=== PATIENT | male | born 1980 | race Hispanic/Latino ===

== ENCOUNTER 2022-06-12 22:47 | Emergency (ER) | payer OTHER ==
--- OUTSIDE RECORDS SUMMARY | 2022-06-12 22:50 | XMS REPORT | Continuity of Care Document ---
:1980 Author Organization [facility] t Address [address] [place] [address] Dr. [address] [place] [address] Care Team Providers Name Role Phone PCP, PATIENT DOES NOT HAVE A Primary Care Physician UnavailEllie Drake LVN Attending Clinician YOEL CORLEY Attending Clinician Unavailable Zainab Echavarria NP Attending Clinician Yoel Corley MD Attending Clinician YOEL CORLEY Admitting Clinician Unavailable Yoel Corley MD Admitting Clinician Payers Payer Name Policy Type Policy Number Effective Date Expiration Date S ource Problems Condition Condition Condition Status Onset Resolution Last Treating Co mments Source Name Details Category Date Date Treatment Clinician Date Diverticul Diverticul Disease Active 2021-05 U nivers itis itis 0-02 ity of 00:00: [address] Obesity Obesity Disease Active 2021-05 Univers (BMI (BMI 0-02 ity of 30-39.9) 30-39.9) 00:00: [address] Allergies, Adverse Reactions, Alerts Allergy Allergy Status Severity Reaction(s) Onset Inactive Treating Comm ents Source Name Type Date Date Clinician NO KNOWN Drug Active Univers ALLERGIE Class ity of S [facility] Social History Social Habit Start Date Stop Date Quantity Comments Source History of Passive smoker University of tobacco use [facility] Exposure to 2022-01-24 2022-02-03 Not sure University SARS-CoV-2 00:00:00 00:21:00 [facility] (event) [place] Tobacco use and 2022-02-03 2022-02-03 Smokeless tobacco Un iversity of exposure 00:00:00 00:00:00 non-user [facility] Sex Assigned At [birth year] Universit y of 00:00:00 00:00:00 [facility] Smoking Status Start Date Stop Date Source Smokes tobacco daily 2022-02-03 00:00:00 Univers ity [facility] Medications Ordered Filled Start Stop Current Ordering Indication Dosage Frequency Signature Comments Components Source Medication Medication Date Date Medication? Clinician (SIG) Name Name palak 2021-05 No 3.375g 3.375 g, Univers n-tazobacta 0-05 02-08 IV ity of m (ZOSYN) 12:15: 20:14 [place], [place] 3.375 g in 00 :00 Q8H ABX, 7 Med ical NaCl 0.9% doses, Branch (NS) 50 mL First dose MINI-BAG (after last reorder) on Fri02/06/22 at 0715, Last dose on Fri02/08/22 at 0715, Administer over 4 Hours, 50 mL
Reas on for Anti-Infec tive: Empiric Therapy for Suspected Infection< br>Empiric Therapy Site: Abdominal< br>Duratio n of therapy: 72 hours acidophilus 2021-05- No [id number] 1g Take 1 Univers 100 million 0-05 11-05 tablet by it y of cell tablet 00:00: 04:59 mouth in [place] 00 :00 the Medical morning Branch and 1 tablet in the evening. Do all this for 30 days. acidophilus 2021-05- No [id number] 1g Take 1 Univers 100 million 0-05 11-05 tablet by it y of cell tablet 00:00: 04:59 mouth in [place] 00 :00 the Medical morning Branch and 1 tablet in the evening. Do all this for 30 days. acidophilus 2021-05- No [id number] 1g Take 1 Univers 100 million 0-05 11-05 tablet by it y of cell tablet 00:00: 04:59 mouth in [place] 00 :00 the Medical morning Branch and 1 tablet in the evening. Do all this for 30 days. amoxicillin 2021-05- No [id number] 1{tbl} Take 1 Univers -clavulanat 0-05 10-13 tablet by it y of e 00:00: 04:59 mouth in [place] (AUGMENTIN) 00 :00 the Medical 875-125 mg morning Branch per tablet and 1 tablet in the evening. Do all this for 7 days. amoxicillin 2021-05- No [id number] 1{tbl} Take 1 Univers -clavulanat 0-05 10-13 tablet by it y of e 00:00: 04:59 mouth in [place] (AUGMENTIN) 00 :00 the Medical 875-125 mg morning Branch per tablet and 1 tablet in the evening. Do all this for 7 days. amoxicillin 2021-05- No [id number] 1{tbl} Take 1 Univers -clavulanat 0-05 10-13 tablet by it y of e 00:00: 04:59 mouth in [place] (AUGMENTIN) 00 :00 the Medical 875-125 mg morning Branch per tablet and 1 tablet in the evening. Do all this for 7 days. iopamidol 2021-05- No [id number] 60mL 60 mL, U nivers (ISOVUE 0-04 10- Intravenou ity o f 370-500 mL) 14:20: 14:21 s, ONCE, 1 [place] injection 00 :00 dose, On Medica l 60 mL Branch 02/05/22 at 0930, Routine enoxaparin 2021-05 Yes 40mg 40 mg, Unive rs (LOVENOX) 0-02 Subcutaneo ity of injection 22:00: [place], DAILY, [place] 40 mg 00 First dose Medical on [place] Branch 02/03/22 at 1700, Until Discontinu ed, Routine piperacilli 2021-05- No 3.375g 3.375 g, Univers n-tazobacta 0-02 10-04 IV ity of m (ZOSYN) 17:00: 22:24 [place], [place] 3.375 g in 00 :00 Q8H ABX, 7 Med ical NaCl 0.9% doses, Branch (NS) 50 mL First dose MINI-BAG (after last reorder) on [place] 02/03/22 at 1200, Last dose on Fri02/05/22 at 1200, Administer over 4 Hours, 50 mL
Reas on for Anti-Infec tive: Empiric Therapy for Suspected Infection< br>Empiric Therapy Site: Abdominal< br>Duratio n of therapy: 72 hours acetaminoph 2021-05 Yes 650mg 650 mg, Un lina en 0-02 Oral, ity of (TYLENOL) 14:08: Q6HPRN, [place] tablet 650 38 Starting Medic al mg on [place] Branch 02/03/22 at 0908, Until Discontinu ed, Routine, Pain (scale 4-6) NaCl 0.9% 2021-05 Yes 1000mL at 100 Univ ers (NS) IV 0-02 mL/hr, IV ity of infusion 10:15: Infusion, [place] 1,000 mL 00 CONTINUOUS Medic al , Starting Branch on [place] 02/03/22 at 0515, Until Discontinu ed, Routine ondansetron 2021-05 Yes 4mg 4 mg, Slow Univers (ZOFRAN 0-02 IV Push, ity of (PF)) 10:13: Q6HPRN, [place] injection 4 17 Starting Medi lillie mg on [facility] 02/03/22 at 0513, Until Discontinu ed, Routine, Nausea and Vomiting (N/V) iopamidol 2021-05- No [id number] 100mL 100 mL, Univers (ISOVUE 002-03 Intravenou ity o f 370-500 mL) 08:30: 07:37 s, ONCE, 1 [place] injection 00 :00 dose, On Medica l 100 mL [facility] 02/03/22 at 0330, Routine piperacilli 2021-05- No 3.375g 3.375 g, Univers n-tazobacta 002-03 IV ity of m (ZOSYN) 08:15: 08:56 [place]back, [place] 3.375 g in 00 :00 ONCE, 1 Medica l NaCl 0.9% dose, On Branch (NS) 50 mL [place] MINI-BAG 02/03/22 at 0315, Administer over 30 Minutes, 50 mL
R abhijeet for Anti-Infec tive: Empiric Therapy for Suspected Infection< br>Empiric Therapy Site: Abdominal< br>Duratio n of therapy: 72 hours ketorolac 2021-05- No 30mg 30 mg, Unive rs (TORADOL) 0-02 02-03 Slow IV ity of injection 06:45: 06:02 Push, [place] 30 mg 00 :00 ONCE, 1 Medical dose, On Branch 02/03/22 at 0145, Routine Vital Signs Vital Name Observation Time Observation Value Comments Source Systolic blood 2022-02-06 18:27:00 141 mm[Hg] Univer sity of pressure [facility] Diastolic blood 2022-02-06 18:27:00 92 mm[Hg] Unive rsity of pressure [facility] Heart rate 2022-02-06 18:27:00 68 /min [facility] Body temperature 2022-02-06 18:27:00 36.44 Jessica [facility] rate 2022-02-06 18:27:00 16 /min [facility] Oxygen saturation in 2022-02-06 18:27:00 100 /min [facility] Arterial blood by [facility] Pulse oximetry [place] Body weight 2022-02-06 08:06:00 99.111 kg [facility] BMI 2022-02-06 08:06:00 33.22 kg/m2 [facility] Body height 2022-02-03 09:45:00 172.7 cm [facility] Procedures Procedure Date / Time Performed Performing Clinician Sour e BASIC METABOLIC PANEL 2022-02-06 09:21:00 Shellie Roldan [facility] (NA, K, CL, CO2, [facility] Branch GLUCOSE, BUN, CREATININE, CA) CBC WITH DIFF 2022-02-06 09:21:00 Shellie Roldan [facility] URINALYSIS 2022-02-05 21:57:00 Radha Clement [place] o f [facility] CT ABDOMEN PELVIS W 2022-02-05 14:25:48 Lori Bansal [facility] CONTRAST [facility] BASIC METABOLIC PANEL 2022-02-05 09:04:00 Shellie Roldan [facility] (NA, K, CL, CO2, [facility] Branch GLUCOSE, BUN, CREATININE, CA) CBC WITH DIFF 2022-02-05 09:04:00 Shellie Roldan [facility] BASIC METABOLIC PANEL 2022-02-04 07:48:00 [facility] (NA, K, CL, CO2, Medical Branch GLUCOSE, BUN, CREATININE, CA) CBC WITH DIFF 2022-02-04 07:48:00 [facility] o f [facility] CT ABDOMEN PELVIS W 2022-02-03 07:36:00 Zainab Echavarria [facility] CONTRAST [facility] LIPASE 2022-02-03 05:55:00 Zainab Echavarria [facility] COMP. METABOLIC PANEL 2022-02-03 05:55:00 Zainab Echavarria [facility] ([id number]) [facility] CBC WITH DIFF 2022-02-03 05:55:00 Zainab Echavarria [facility] URINALYSIS 2022-02-03 05:55:00 Zainab Echavarria [facility] NOTICE OF PRIVACY 2022-02-03 05:18:05 Doctor Unassigned, No [facility] PRACTICES Name [facility] Encounters Start End Encounter Admission Attending Care Care Encounter Source Date/Time Date/Time Type Type Clinicians Facility Department ID 2022-02-07 2022-02-07 Transition SOHAIL Tong [id number] Univers 00:00:00 00:00:00 of Care Ellie REYES [id number] it[id number] [facility] [id number] [facility] 403 Branch 2022-02-03 2022-02-06 Inpatient X RAULFRANTZ [facility] [id number] Univers 00:25:00 [facility]:35:00 [facility] 2022-02-03 2022-02-06 Hospital Zainab Echavarria [facility] [id number] Univers 00:25:00 16:35:00 Encounter Yoel Corley [id number] ity [id number] [id number] [facility] 081 Branch Results Test Description Test Time Test Comments Results Result Comments Source COMP. METABOLIC PANEL ([id number]) 2022-02-03 06:27:45 Test Item Value Reference Range Interpretation Comme nts NA (test code = 2448143744) 142 mmol/L 135-145 K (test code = 1489697285) 4.2 mmol/L 3.5-5 CL (test code = 2143460568) 105 mmol/L 98-108 CO2 TOTAL (test code = 4048468625) 26 mmol/L 23-31 AGAP (test code = 8479261699) 2-16 BUN (test code = 4408146685) 16 mg/dL 7-23 GLUCOSE (test code = 3458760891) 97 mg/dL 70-110 CREATININE (test code = 0.94 mg/dL 0.6-1.25 4475747401) TOTAL BILI (test code = 0.8 mg/dL 0.1-1.6 6946710772) CALCIUM (test code = 8769150769) 10.0 mg/dL 8.6-10.6 T PROTEIN (test code = 7182548682) 8.0 g/dL 6.3-8.2 ALBUMIN (test code = 6556516297) 4.9 g/dL 3.5-5 ALK PHOS (test code = 4861965861) 151 U/L 34-122 H ALTv (test code = 1742-6) 84 U/L 5-50 H AST(SGOT) (test code = 1175664248) 42 U/L 13-40 H eGFR (test code = 6209847936) mL/min/1.73m2 TOM (test code = TOM) Association of Glomerular Filtration Rate (GFR) and Staging of Kidney Disease* + +-------- + ------+| GFR (mL/min/1.73 m2) ?| With Kidney Damage ?| ?Without Kidney Damage+ +-- + +| ?>90 ?| ?Stage one ?| ? Normal ?+ +------- + -------+| ?60-89 ?| ?Stage two ?| ? Decreased GFR ? + +-------- + ------+| ?30-59 ?| ?Stage three ?| ? Stage three ? + +-------- + ------+| ?15-29 ?| ?Stage four ? | ? Stage four ?+ +------- + -------+| ?<15 (or dialysis) ? ?| ?Stage five ? | ? Stage five ?+ +------- + -------+ *Each stage assumes the associated GFR level has been in effect for at least three months. ?Stages 1 to 5, with or without kidney disease, indicate chronic kidney disease. Notes: Determination of stages one and two (with eGFR >59mL/min/1.73 m2) requires estimation of kidney damage for at least three months as defined by structural or functional abnormalities of the kidney, manifested by either:Pathological abnormalities or Markers of kidney damage (including abnormalities in the composition of the blood or urine or abnormalities in imaging tests). Lab Interpretation (test code = Abnormal 35064-8) [facility] Test Item Value Reference Range Interpretation Comments LIPASE (test code = 6172438190) 84 U/L 0-220 Lab Interpretation (test code = Normal 25575-9) [facility] WITH [id number] 06:04:42 Test Item Value Reference Range Interpretation Comments WBC (test code = See_Comment [Automated 2990-2) message] The sy stem which generated this result transmitted reference range : 4.20 - 10.70 10*3/?L. The reference range was not used to interpret this result as normal/abnormal . RBC (test code = See_Comment [Automated 599-8) message] The sy stem which generated this result transmitted reference range : 4.26 - 5.52 10*6/?L. The reference range was not used to interpret this result as normal/abnormal . HGB (test code = 15.8 g/dL 12.2-16.4 718-7) HCT (test code = 45.4 % 38.4-49.3 4544-3) MCV (test code = 90.8 fL 81.7-95.6 787-2) MCH (test code = 31.6 pg 26.1-32.7 785-6) MCHC (test code = 34.8 g/dL 31.2-35 786-4) RDW-SD (test code = 38.8 fL 38.5-51.6 36324-9) RDW-CV (test code = 11.7 % 12.1-15.4 L 788-0) PLT (test code = See_Comment [Automated 777-3) message] The sy stem which generated this result transmitted reference range : 150 - 328 10*3/ ?L. The reference r dariana was not used to interpret this result as normal/abnormal . MPV (test code = 11.8 fL 9.8-13 41297-0) NRBC/100 WBC (test See_Comment [Automat ed code = 2844101131) message] The system which generated this result transmitted reference range : 0.0 - 10.0 /100 WBCs. The refer ence range was not u sed to interpret th is result as normal/abnormal . NRBC x10^3 (test code See_Comment [Auto mated = 5322572979) message] The s ystem which generated this result transmitted reference range : 10*3/?L. The reference range was not used to interpret this result as normal/abnormal . GRAN MAT (NEUT) % 69.7 % (test code = 770-8) IMM GRAN % (test code 0.40 % = 7880457215) LYMPH % (test code = 20.9 % 736-9) MONO % (test code = 7.8 % 5905-5) EOS % (test code = 0.7 % 713-8) BASO % (test code = 0.5 % 706-2) GRAN MAT x10^3(ANC) 6.91 10*3/uL 1.99-6.95 (test code = 2511446277) IMM GRAN x10^3 (test 0.04 10*3/uL 0-0.06 code = 7047964589) LYMPH x10^3 (test code 2.07 10*3/uL 1.09-3.23 = 731-0) MONO x10^3 (test code 0.77 10*3/uL 0.36-1.02 = 742-7) EOS x10^3 (test code = 0.07 10*3/uL 0.06-0.53 711-2) BASO x10^3 (test code 0.05 10*3/uL 0.01-0.09 = 704-7) Lab Interpretation Abnormal (test code = 06647-0) [facility] [id number] 06:41:19 Test Item Value Reference Range Interpretation Comments VITAMIN D, 25 OH 15 NG/ML SEE BELOW L NOTE: 25-H YDROXYVITAMIN D (test code = 4958) ASSAY INC LUDES 25-HYDROXYVITAM IN D2 AND D3. METHODOLOGY IS CHEMILUMINESCEN T IMMUNOASSAY. INTERPRETIVE RA NGES PEDIATRIC (<17 YEARS) . . . . . . . . . . . NG/ML 20-100ADULT: IN SUFFICIENT . . . . . . . . . . . . . . NG/ML <20 SUBOP TIMAL . . . . . . . . . . . . . . . NG/ML 20-29 OPT IMAL . . . . . . . . . . . . . . . . . NG/ML 30-100 HEMOGLOBIN [id number] 06:13:33 Test Item Value Reference Range Interpretation Comments HEMOGLOBIN A1c (test code = 36209) 5.7 % 4.2-5.6 H TSH, THIRD [id number] 06:00:05 Test Item Value Reference Range Interpretation Comments TSH, THIRD GENERATION (test code 1.470 UIU/ML 0.400-4.100 = 2821) [id number] 05:59:24 Test Item Value Reference Range Interpretation Comments TESTOSTERONE (test 536 NG/DL 300-1080 UNLESS O THERWISE code = 2830) INDICATED, ALL TESTING PERFORMED [facility], [address] [place] [address] DIRECTOR: ONIEL WOODSON M.D. CLIA NUMBER [id number] CAP ACCREDITATION N O. [id number] CBC W/AUTO DIFF WITH [id number] 05:32:39 Test Item Value Reference Range Interpretation Comments WBC (test code = 6.6 K/UL 3.5-11.0 1001) RBC (test code = 5.23 M/UL 4.50-6.10 1002) HEMOGLOBIN (test code 16.2 G/DL 13.5-17.0 = 1003) HEMATOCRIT (test code 46.8 % 40.0-51.0 = 1004) MCV (test code = 89.5 fL 80.0-99.0 1005) MCH (test code = 31.0 PG 25.0-33.0 1006) MCHC (test code = 34.6 G/DL 31.0-36.0 1007) RDW (test code = 12.4 % 11.5-15.0 1038) NEUTROPHILS (test 59.2 % code = 1008) LYMPHOCYTES (test 27.8 % code = 1010) MONOCYTES (test code 10.1 % = 1011) EOSINOPHILS (test 2.0 % code = 1012) BASOPHILS (test code 0.6 % = 1013) IMMATURE GRANULOCYTES 0.3 % (test code = 1036) NUCLEATED RBCS (test 0.0 /100 WBC'S See_Comment [Aut omated code = 1065) message] The sy stem which generated this result transmitted reference range : 0.0. The refere nce range was not u sed to interpret th is result as normal/abnormal . PLATELET COUNT (test 241 K/UL 130-400 code = 1015) ABSOLUTE NEUTROPHILS 3.91 K/UL 1.50-7.50 (test code = 1066) ABSOLUTE LYMPHOCYTES 1.84 K/UL 1.00-4.00 (test code = 1067) ABSOLUTE MONOCYTES 0.67 K/UL 0.20-1.00 (test code = 1068) ABSOLUTE EOSINOPHILS 0.13 K/UL 0.00-0.50 (test code = 1040) ABSOLUTE BASOPHILS 0.04 K/UL 0.00-0.20 (test code = 1069) ABS IMMATURE 0.02 K/UL 0.00-0.10 GRANULOCYTES (test code = 1020) ABS NUCLEATED RBCS 0.00 K/UL 0.00-0.11 (test code = 58185) COMPREHENSIVE METABOLIC [id number] 03:36:54 Test Item Value Reference Range Interpretation Comments GLUCOSE (test code = 88 MG/DL 70-99 2216) BUN (test code = 10 MG/DL 6-20 2207) CREATININE (test 0.88 MG/DL 0.80-1.40 code = 2214) eGFR (2020 CKD-EPI) 112 >60 (test code = 15803) ML/MIN/1.73 CALC BUN/CREAT (test 11 RATIO 6-28 code = 2235) SODIUM (test code = 141 MEQ/L 366-675 0368) POTASSIUM (test code 4.3 MEQ/L 3.5-5.4 = 2227) CHLORIDE (test code 103 MEQ/L 95-107 = 2215) CARBON DIOXIDE (test 25 MEQ/L 19-31 code = 220) CALCIUM (test code = 9.8 MG/DL 8.5-10.5 2208) PROTEIN, TOTAL (test 7.3 G/DL 6.1-8.3 code = 222) ALBUMIN (test code = 4.3 G/DL 3.5-5.2 2200) CALC GLOBULIN (test 3.0 G/DL 1.9-3.7 code = 2240) CALC A/G RATIO (test 1.4 RATIO 1.0-2.6 code = 2234) BILIRUBIN, TOTAL 0.6 MG/DL See_Comment [Automated message] (test code = 2206) The syste [employer] which generated this result transmit boni reference range : <=1.2. The refe rence range was not u sed to interpret th is result as normal/abnormal . ALKALINE PHOSPHATASE 125 U/L 40-117 H (test code = 2203) AST (test code = 26 U/L 9-50 2217) ALT (test code = 44 U/L 5-50 2218) LIPID [id number] 03:36:54 Test Item Value Reference Range Interpretation Comments CHOLESTEROL (test 226 MG/DL <200 H code = 2210) TRIGLYCERIDES (test 105 MG/DL <150 code = 2232) HDL CHOLESTEROL (test 60 MG/DL >39 code = 2220) CALC LDL CHOL (test 144 MG/DL <100 H NOTE: C ALCULATED LDL code = 2237) IS BASED ON MEHDI-ALLEN METHOD WHICHINCLUDES ADJUSTABLE TRIGLYCERIDE:VL DL CHOLESTEROL RAT IO.THIS FACTOR VARIES B Y MEASURED TRIGLY CERIDE AND NON-HDLCHOL ESTEROL CONCENTRATIONS WITH INCREASED CALCU LATED LDL SEENIN HIGH ER TRIGLYCERIDE OR LOWER NON-HDL SPECIME NS. FOR MOREINFORMATION , SEE CLIENT ANNOUNCE MENT AT [email or web address] RATIO LDL/HDL 2.40 RATIO <3.55 (test code = 223)"
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
[2022-06-13] MEDS ORDERED: HYDROCODONE/APAP 10/325 TAB ONE (00:42)
[2022-06-13 01:10] VITALS: BP 145/110; TEMP 98.8; O2SAT 98
--- NOTE | 2022-06-13 20:39 | RAD REPORT ---
EXAM DESCRIPTION: RAD - C Spine Ap/Lat - 06/12/2022 11:34 pm CLINICAL HISTORY: Pain COMPARISON: None TECHNIQUE: Cervical Spine 3 Views FINDINGS: Cervical vertebral bodies show normal height and alignment. No fracture or subluxation. Small anterior endplate osteophytes at C4/C5. No significant cervical disc height loss. No significant sclerotic/lytic bone lesion. Prevertebral space unremarkable. IMPRESSION: Unremarkable cervical spine radiographs for patient's age. Electronically signed by: Jose Ferreira MD 06/12/2022 11:51 PM [employer]CH[employer]IC Due to temporary technical issues with the PACS/Fluency reporting system, reports are being signed by the in house radiologists without review as a courtesy to insure prompt reporting. The interpreting radiologist is fully responsible for the content of the report.
--- NOTE | 2022-06-13 20:40 | RAD REPORT ---
EXAM DESCRIPTION: RAD - Lumbar Spine 3 Views - 06/12/2022 11:34 pm CLINICAL HISTORY: Pain COMPARISON: None TECHNIQUE: Lumbar Spine 3 Views FINDINGS: Lumbar vertebral bodies show normal height and alignment. No fracture or subluxation. Lumbar disc spaces show no significant height loss. Small anterior endplate osteophytes throughout lumbar spine. No significant sclerotic/lytic bone lesion. No significant hip joint space narrowing. Sacroiliac joints appear unremarkable. Small ovoid inferior right pelvic calcification likely represents phlebolith. IMPRESSION: Unremarkable lumbar spine radiographs for patient's age. Electronically signed by: Jose Ferreira MD 06/12/2022 11:49 PM RESPITE PROVIDER Due to temporary technical issues with the PACS/Fluency reporting system, reports are being signed by the in house radiologists without review as a courtesy to insure prompt reporting. The interpreting radiologist is fully responsible for the content of the report.
== END 2022-06-13 00:43 | disposition home or self-care (01) ==
LOC: ER 22:47
DX: M54.2 Cervicalgia (principal); M54.50 Low back pain, unspecified; E11.9 Type 2 diabetes mellitus without complications
CPT/HCPCS: 72040; 72100; 99283

== ENCOUNTER 2024-06-09 23:14 | Inpatient (IN) | payer SELFPAY ==
--- OUTSIDE RECORDS SUMMARY | 2024-06-09 23:18 | XMS REPORT | Continuity of Care Document ---
Author Name Unknown Address [address] [facility] [address] [place] [address] [facility] thconnect Address [address] [facility] 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 Role Phone Lynn Rodriguez Primary Care Physician Ellie Tong LVN Attending Clinician [phone] YOEL CORLEY Attending Clinician Unavailable Zainab Echavarria NP Attending Clinician Yoel Corley MD Attending Clinician [phone] Doctor Unassigned, [place] Attending Clinician U YOEL Swenson Admitting Clinician Unavailable Yoel Corley MD Admitting Clinician [phone] Payers Payer Name Policy Type Policy Number Effective Date Expirati on Date Source Problems Condition Name Condition Details Condition Category Status Onset Date Resolution Date Last Treatment Date Treating Clinician Comments Source Diverticul itis Diverticul itis Disease Active 2021-05 00:00: 00 [facility] Obesity (BMI 30-39.9) Obesity (BMI 30-39.9) Disease Active 2021-05 00:00: 00 [facility] Allergies, Adverse Reactions, Alerts Allergy Name Allergy Type Status Severity Reaction(s) Onset Date Inactive Date Treating Clinician Comments Source [place] - Intraven ous Propensi ty to adverse reaction to drug Active 11-07 00:00: 00 Castillo Saleem NO KNOWN ALLERGIE S Drug Class Active [facility] Social History Social Habit Start Date Stop Date Quantity Comments Source History of tobacco use Passive smoker [facility] to SARS-CoV-2 (event) 2022-01-24 00:00:00 2022-02-03 00:21:00 Not sure [facility] Tobacco use and exposure 2022-02-03 00:00:00 2022-02-03 00:00:00 Smokeless tobacco non-user [facility] History of Social function 2022-02-03 00:00:00 2022-02-03 00:00:00 [facility] Sex Assigned At 1980 00:00:00 1980 00:00:00 [facility] Smoking Status Start Date Stop Date Source Tobacco smoking consumption unknown [facility] Smokes tobacco daily 2022-02-03 00:00:00 [facility] Medications Ordered Medication Name Filled Medication Name Start Date Stop Date Current Medication? Ordering Clinician Indication Dosage Frequency Signature (SIG) Comments Components Source Cipro 500 mg tablet 2023-05 00:00: 00 Yes 1mg Castilloxin Saleem metronidazo le 500 mg tablet 2023-05 00:00: 00 Yes 1mg Castillo Alaian Saleem Tylenol Extra Strength 500 mg tablet 2023-05 00:00: 00 Yes 12mg Castillo Saleem TAKE 1 TABLET AT BEDTIME NEEDED. 05-12 00:00: 00 08-17 00:00 :00 No 50 Castillo Alania Saleem TAKE 1 TABLET DAILY. 05-12 00:00: 00 08-17 00:00 :00 No 50 Castillo Alaina Saleem TAKE 1/2 TABLET AT BEDTIME. 2022-05 00:00: 00 08-17 00:00 :00 No 50 Castillo Alaina Saleem TAKE 1 TABLET DAILY. 2022-05 00:00: 00 08-17 00:00 :00 No 50 Castillo F Stiven TAKE 1 TO 2 TABLETS AT BEDTIME 2022-05 00:00: 00 08-17 00:00 :00 No 25 Castillo Alaina Saleem TAKE 1 TABLET DAILY. 2022-05 00:00: 00 08-17 00:00 :00 No 25 Castillo Saleem APPLY SPARINGLY TO AFFECTED AREA(S) TWICE DAILY -24 00:00: 08-17 00:00 :00 No 2 Castillo Saleem TAKE 1 TABLET TWICE DAILY WITH FOOD. -24 00:00: 00 08-17 00:00 :00 No [id number] Castillo Saleem TAKE 1 TABLET DAILY DIRECTED. -17 00:00: 00 08-17 00:00 :00 No 500 Castillo Saleem piperacilli n-tazobacta m (ZOSYN) 3.375 g in NaCl 0.9% (NS) 50 mL MINI-BAG 2021-05 12:15: 00 02-08 20:14 :00 No 3.375g 3.375 g, IV Piggyback, Q8H ABX, 7 doses, First dose (after last reorder) on Fri02/06/22 at 0715, Last dose on Fri02/08/22 at 0715, Administer over 4 Hours, 50 mL
Reas on for Anti-Infec tive: Empiric Therapy for Suspected Infection< br>Empiric Therapy Site: Abdominal< br>Duratio n of therapy: 72 hours [facility] TAKE ONE (1) TABLET(S) BY MOUTH EVERY MORNING AND EVENING FOR 7 DAYS. 2021-05 0 00:00: 08-17 00:00 :00 No Castillo Saleem acidophilus 100 million cell tablet 2021-05 0-05 00:00: 00 03-09 04:59 :00 No [id number] 1g Take 1 tablet by mouth in the morning and 1 tablet in the evening. Do all this for 30 days. [facility] amoxicillin -clavulanat e (AUGMENTIN) 875-125 mg per tablet 2021-05 0-05 00:00: 00 02-14 04:59 :00 No [id number] 1{tbl} Take 1 tablet by mouth in the morning and 1 tablet in the evening. Do all this for 7 days. [facility] iopamidol (ISOVUE 370-500 mL) injection 60 mL 2021-05 14:20: 00 02-05 14:21 :00 No [id number] 60mL 60 mL, Intravenou s, ONCE, 1 dose, On Fri02/05/22 at 0930, Routine [facility] enoxaparin (LOVENOX) injection 40 mg 2021-05 22:00: 00 Yes 40mg 40 mg, Subcutaneo us, DAILY, First dose on Fri02/03/22 at 1700, Until Discontinu ed, Routine [facility] piperacilli n-tazobacta m (ZOSYN) 3.375 g in NaCl 0.9% (NS) 50 mL MINI-BAG 2021-05 17:00: 00 02-05 22:24 :00 No 3.375g 3.375 g, IV Piggyback, Q8H ABX, 7 doses, First dose (after last reorder) on Fri02/03/22 at 1200, Last dose on Fri02/05/22 at 1200, Administer over 4 Hours, 50 mL
Reas on for Anti-Infec tive: Empiric Therapy for Suspected Infection< br>Empiric Therapy Site: Abdominal< br>Duratio n of therapy: 72 hours [facility] acetaminoph en (TYLENOL) tablet 650 mg 2021-05 14:08: 38 Yes 650mg 650 mg, Oral, Q6HPRN, Starting on Fri02/03/22 at 0908, Until Discontinu ed, Routine, Pain (scale 4-6) [facility] NaCl 0.9% (NS) IV infusion 1,000 mL 2021-05 10:15: 00 Yes 1000mL at 100 mL/hr, IV Infusion, CONTINUOUS , Starting on Fri02/03/22 at 0515, Until Discontinu ed, Routine [facility] ondansetron (ZOFRAN (PF)) injection 4 mg 2021-05 10:13: 17 Yes 4mg 4 mg, Slow IV Push, Q6HPRN, Starting on Fri02/03/22 at 0513, Until Discontinu ed, Routine, Nausea and Vomiting (N/V) [facility] iopamidol (ISOVUE 370-500 mL) injection 100 mL 2021-05 08:30: 00 02-03 07:37 :00 No [id number] 100mL 100 mL, Intravenou s, ONCE, 1 dose, On 02/03/22 at 0330, Routine [facility] piperacilli n-tazobacta m (ZOSYN) 3.375 g in NaCl 0.9% (NS) 50 mL MINI-BAG 2021-05 08:15: 00 02-03 08:56 :00 No 3.375g 3.375 g, IV Piggyback, ONCE, 1 dose, On 02/03/22 at 0315, Administer over 30 Minutes, 50 mL
Reas on for Anti-Infec tive: Empiric Therapy for Suspected Infection< br>Empiric Therapy Site: Abdominal< br>Duratio n of therapy: 72 hours [facility] ketorolac (TORADOL) injection 30 mg 2021-05 06:45: 00 02-03 06:02 :00 No 30mg 30 mg, Slow IV Push, ONCE, 1 dose, On 02/03/22 at 0145, Routine [facility] Vitamin D2 1,250 mcg (50,000 unit) capsule 11-12 00:00: 00 Yes 1(50,00 0 unit) Castillo Saleem Vitamin D2 1,250 mcg (50,000 unit) capsule 11-11 00:00: 00 Yes 1(50,00 0 unit) Castillo Saleem Vital Signs Vital Name Observation Time Observation Value Comments S ource Systolic blood pressure 2022-02-06 18:27:00 141 mm[Hg] [place] [facility] Diastolic blood pressure 2022-02-06 18:27:00 92 mm[Hg] [place] [facility] Heart rate 2022-02-06 18:27:00 68 /min [facility] Body temperature 2022-02-06 18:27:00 36.44 Jessica [facility] Respiratory rate 2022-02-06 18:27:00 16 /min [facility] Oxygen saturation in Arterial blood by Pulse oximetry 2022-02-06 18:27:00 100 /min [facility] Body weight 2022-02-06 08:06:00 99.111 kg [facility] BMI 2022-02-06 08:06:00 33.22 kg/m2 [facility] Body height 2022-02-03 09:45:00 172.7 cm [facility] BP Systolic 2024-02-09 10:19:00 146 mm[Hg] Step hen F Stiven BP Diastolic 2024-02-09 10:19:00 92 mm[Hg] Dereje phen F Stiven Weight Measured 2024-02-09 10:19:00 234.80 pounds Castillo F Stiven Height Measured 2024-02-09 10:19:00 68.00 inches Castillo F Stiven Body Temperature 2024-02-09 10:19:00 98.20 degrees Castillo F Stiven Heart Rate 2024-02-09 10:19:00 82.00 /min Mirta en F Stiven Respiratory Rate 2024-02-09 10:19:00 16.00 /min Castillo F Stiven BP Systolic 2023-05-12 16:03:00 153 mm[Hg] Step hen F Stiven BP Diastolic 2023-05-12 16:03:00 95 mm[Hg] Dereje phen F Stiven Weight Measured 2023-05-12 16:03:00 243.00 pounds Castilloxin Saleem Height Measured 2023-05-12 16:03:00 68.00 inches Castillo Alaina Saleem Body Temperature 2023-05-12 16:03:00 97.70 degrees Castillo F Stiven Heart Rate 2023-05-12 16:03:00 90.00 /min Mirta en F Stiven Respiratory Rate 2023-05-12 16:03:00 18.00 /min Castillo F Stiven Heart Rate 2022-09-09 08:26:00 78.00 /min Mirta en F Stiven Respiratory Rate 2022-09-09 08:26:00 19.00 /min Castillo F Stiven BP Systolic 2022-09-09 08:26:00 143 mm[Hg] Step hen F Stiven BP Diastolic 2022-09-09 08:26:00 88 mm[Hg] Dereje phen F Stiven Weight Measured 2022-09-09 08:26:00 229.40 pounds Castillo F Stiven Height Measured 2022-09-09 08:26:00 68.00 inches Castillo F Stiven Body Temperature 2022-09-09 08:26:00 98.20 degrees Castillo F Stiven BP Systolic 2022-08-26 13:41:00 134 mm[Hg] Step hen F Stiven BP Diastolic 2022-08-26 13:41:00 88 mm[Hg] Dereje phen F Stiven Weight Measured 2022-08-26 13:41:00 230.20 pounds Castillo F Stiven Height Measured 2022-08-26 13:41:00 68.00 inches Castillo F Stiven Body Temperature 2022-08-26 13:41:00 98.10 degrees Castillo F Stiven Heart Rate 2022-08-26 13:41:00 83.00 /min Mirta en F Stiven Respiratory Rate 2022-08-26 13:41:00 19.00 /min Castillo F Stiven BP Systolic 2022-08-19 09:46:00 133 mm[Hg] Step hen F Stiven BP Diastolic 2022-08-19 09:46:00 88 mm[Hg] Dereje phen F Stiven Weight Measured 2022-08-19 09:46:00 232.80 pounds Castillo F Stiven Height Measured 2022-08-19 09:46:00 68.00 inches Castillo F Stiven Body Temperature 2022-08-19 09:46:00 98.30 degrees Castillo F Stiven Heart Rate 2022-08-19 09:46:00 78.00 /min Mirta en F Stiven Respiratory Rate 2022-08-19 09:46:00 18.00 /min Castillo F Stiven BP Systolic 2022-08-12 08:58:00 160 mm[Hg] Step hen F Stiven BP Diastolic 2022-08-12 08:58:00 91 mm[Hg] Dereje phen F Stiven Weight Measured 2022-08-12 08:58:00 232.20 pounds Castillo F Stiven Height Measured 2022-08-12 08:58:00 68.00 inches Castillo F Stiven Body Temperature 2022-08-12 08:58:00 98.70 degrees Castillo F Stiven Heart Rate 2022-08-12 08:58:00 86.00 /min Mirta en F Stiven Respiratory Rate 2022-08-12 08:58:00 18.00 /min Castillo Saleem BP Systolic 2021-11-07 11:28:00 132 mm[Hg] Dom Slaeem BP Diastolic 2021-11-07 11:28:00 73 mm[Hg] Dereje Saleem Weight Measured 2021-11-07 11:28:00 228.20 pounds Castillo Saleem Height Measured 2021-11-07 11:28:00 68.00 inches Castillo Saleem Body Temperature 2021-11-07 11:28:00 98.00 degrees Castillo Saleem Heart Rate 2021-11-07 11:28:00 97.00 /min Mirta Saleem Respiratory Rate 2021-11-07 11:28:00 17.00 /min Castillo Saleem Procedures Procedure Date / Time Performed Performing Clinicia n Source BASIC METABOLIC PANEL (NA, K, CL, CO2, GLUCOSE, BUN, CREATININE, CA) 2022-02-06 09:21:00 Shellie Roldan [facility] CBC WITH DIFF 2022-02-06 09:21:00 Jamar Shellie [facility] URINALYSIS 2022-02-05 21:57:00 Radha Clement [facility] CT ABDOMEN PELVIS W CONTRAST 2022-02-05 14:25:48 Lori Bansal [facility] BASIC METABOLIC PANEL (NA, K, CL, CO2, GLUCOSE, BUN, CREATININE, CA) 2022-02-05 09:04[facility] 2022-02-05 09:04:00 Jamar Shellie [facility] BASIC METABOLIC PANEL (NA, K, CL, CO2, GLUCOSE, BUN, CREATININE, CA) 2022-02-04 07:48:00 Yoel Corley [facility] CBC WITH DIFF 2022-02-04 07:48:00 Lin [facility] CT ABDOMEN PELVIS W CONTRAST 2022-02-03 07:36:00 Zainab Echavarria [facility] LIPASE 2022-02-03 05:55:00 Zainab Echavarria [facility] COMP. METABOLIC PANEL (34109) 2022-02-03 05:55:00 Zainab cEhavarria [facility] CBC WITH DIFF 2022-02-03 05:55:00 Zainab Echavarria [facility] URINALYSIS 2022-02-03 05:55:00 Zainab Echavarria [facility] NOTICE OF PRIVACY PRACTICES 2022-02-03 05:18:05 Doctor Unassigned, [place] [facility] Encounters Start Date/Time End Date/Time Encounter Type Admission Type Attending [facility] Care Department Encounter ID Source 2024-02-19 10:09:08 2024-02-19 10:09:08 Outpatient SFA SFA [id number] Castillo Saleem 2024-02-09 10:13:25 2024-02-09 10:13:25 Outpatient SFA SFA [id number] Castillo Saleem 2024-02-09 00:00:00 2024-02-09 00:00:00 Outpatient Visit SFA [id number] Castillo Saleem 2024-02-06 16:43:26 2024-02-06 16:43:26 Outpatient SFA SFA [id number] Castillo Saleem 2023-05-27 11:11:01 2023-05-27 11:11:01 Outpatient SFA SFA [id number] Castillo Saleem 2023-04-16 09:59:08 2023-04-16 09:59:08 Outpatient SFA SFA [id number] Castillo Saleem 2023-03-25 16:22:46 2023-03-25 16:22:46 Outpatient SFA SFA [id number] Castillo Saleem 2022-09-18 09:13:49 2022-09-18 09:13:49 Outpatient SFA SFA [id number] Castillo Saleem 2022-09-09 08:13:12 2022-09-09 08:13:12 Outpatient SFA SFA [id number] Castillo Saleem 2022-08-19 09:34:13 2022-08-19 09:34:13 Outpatient [facility] [id number] Castillo Saleem 2022-08-12 08:47:37 2022-08-12 08:47:37 Outpatient [facility] [id number] Castillo Saleem 2022-02-07 00:00:00 2022-02-07 00:00:00 Transition of Care Ellie Tong [id number] [facility] 2022-02-03 00:25:00 2022-02-06 16:35:00 Inpatient X LIN [facility] YANG [id number] [facility] 2022-02-03 00:25:00 2022-02-06 16:35:00 [facility] [id number] [facility] 2019-12-22 00:00:00 2019-12-22 00:00:00 Patient Secure Msg Doctor Unassigned, [place] [facility] [id number] [facility] Results Test Description Test Time Test Comments Results Result Co mments Source COMPREHENSIVE METABOLIC [id number] 06:54:38* Test Item Value Reference Range Interpretation Comme nts GLUCOSE (test code = 2217) 92 MG/DL 70-99 BUN (test code = 2208) 18 MG/DL 6-20 CREATININE (test code = 2214) 0.93 MG/DL 0.80-1.40 eGFR (2020 CKD-EPI) (test code = 90449) 105 ML/MIN/1.73 >60 CALC BUN/CREAT (test code = 2235) 19 RATIO 6-28 SODIUM (test code = 223) 142 MEQ/L 133-146 POTASSIUM (test code = 2228) 4.5 MEQ/L 3.5-5.4 CHLORIDE (test code = 2215) 104 MEQ/L 95-107 CARBON DIOXIDE (test code = 2206) 23 MEQ/L 19-31 CALCIUM (test code = 2209) 9.7 MG/DL 8.5-10.5 PROTEIN, TOTAL (test code = 2229) 7.8 G/DL 6.1-8.3 ALBUMIN (test code = 2201) 4.8 G/DL 3.5-5.2 CALC GLOBULIN (test code = 2240) 3.0 G/DL 1.9-3.7 CALC A/G RATIO (test code = 2234) 1.6 RATIO 1.0-2.6 BILIRUBIN, TOTAL (test code = 2207) 0.6 MG/DL <=1.2 ALKALINE PHOSPHATASE (test code = 2203) 150 U/L 40-119 H AST (test code = 2218) 31 U/L 9-50 ALT (test code = 221) 61 U/L 5-50 H UNLESS OTHERWISE INDICATED, ALL TESTING PERFORMED AT [facility] [address] [place] [address] DIVISION ORDER ANALYST: JEANNIE HAYDEN M.D. CLIA NUMBER [id number] [place]. [id number] CULTURE, [id number] 10:26:47SPECIMEN NUMBER: [id number] CULTURE, URINE SPECIMEN NUMBER: [id number] SPECIMEN COMMENT: URINE SOURCE: URINE REPORT STATUS: FINAL FINAL REPORT: 09/11/2022 NO GROWTH AFTER 36 HOURS INCUBATIONCULTURE, URINE 2022-09-11 00:00:00* Test Item Value Reference Range Interpretation Comme nts CULTURE, URINE (test code = 30194) SPECIMEN NUMBER: [id number] Castillo Foley AustinCT/NG, NAAT, [id number] 16:05:23* Test Item Value Reference Range Interpretation Comme nts CHLAMYDIA, NAAT, URINE (test code = 85837) NEGATIVE NEGATIVE Assay methodolog y is nucleic acid amplification by transcriptionmediated amplification (TMA) utilizing the Aptima Combo 2 Assay. A negative result does not exclude low level infection, specimensampling error, or collection error. GONORRHEA, NAAT, URINE (test code = 05255) NEGATIVE NEGATIVE Assay methodolog y is nucleic acid amplification by transcriptionmediated amplification (TMA) utilizing the Aptima Combo 2 Assay. A negative result does not exclude low level infection, specimensampling error, or collection error. UNLESS OTHERWISE INDICATED, ALL TESTING PERFORMED AT [facility] [address] [place] [address] DIVISION ORDER ANALYST: JEANNIE HAYDEN M.D. CLIA NUMBER [id number] [facility] [place]. [id number] HIV 1/2 4TH GEN, RFLX [id number] 04:08:09* Test Item Value Reference Range Interpretation Comme nts HIV 1/2 4TH GEN, RFLX CONF ( test code = 3514) NON-REACTIVE NON-REACTIVE PSA, [id number] 04:07:46* Test Item Value Reference Range Interpretation Comme nts PSA, TOTAL (test code = 2606) 1.17 NG/ML See_Comment NOTE: Methodolog y is Nataly Pina Electrochemiluminescence Immunoassay traceable to WHO reference standard 96/760. [Automated message] The system which generated this result transmitted reference range: <=4.00. The reference range was not used to interpret this result as normal/abnormal. HIV 1/2 4TH GEN, RFLX [id number] 00:00:00* Test Item Value Reference Range Interpretation Comme nts HIV 1/2 4TH GEN, RFLX CONF ( test code = 3514) NON-REACTIVE Castillo SaleemPSA, [id number] 00:00:00* Test Item Value Reference Range Interpretation Comme nts PSA, TOTAL (test code = 2606) 1.17 NG/ML Castillo SaleemCT/NG, TMA, [id number] 00:00:00* Test Item Value Reference Range Interpretation Comme nts CHLAMYDIA, NAAT, URINE (test code = 79650) NEGATIVE GONORRHEA, NAAT, URINE (test code = 01336) NEGATIVE Castillo SaleemVITAMIN D, 25 [id number] 07:11:13* Test Item Value Reference Range Interpretation Comme nts VITAMIN D, 25 OH (test code = 4958) 17 NG/ML SEE BELOW L EFFECTIVE 01/2023, PLEASE NOTE NEW METHODOLOGY IS ELECTROCHEMILUMINESCENCE BINDING ASSAY. NOTE: 25-HYDROXYVITAMIN D ASSAY INCLUDES 25-HYDROXYVITAMIN D2 AND D3. INTERPRETIVE RANGES PEDIATRIC (<17 YEARS) . . . . . . . . . . . NG/ML 20-100ADULT: INSUFFICIENT . . . . . . . . . . . . . . NG/ML <20 SUBOPTIMAL . . . . . . . . . . . . . . . NG/ML 20-29 OPTIMAL . . . . . . . . . . . . . . . . . NG/ML 30-100 LIPID [id number] 03:35:18* Test Item Value Reference Range Interpretation Comme nts CHOLESTEROL (test code = 2210) 222 MG/DL <200 H TRIGLYCERIDES (test code = 2232) 43 MG/DL <150 HDL CHOLESTEROL (test code = 2220) 78 MG/DL >39 CALC LDL CHOL (test code = 2237) 131 MG/DL <100 H NOTE: CALCULATED LDL IS BASED ON MEHDI-ALLEN METHOD WHICHINCLUDES ADJUSTABLE TRIGLYCERIDE:VLDL CHOLESTEROL RATIO.THIS FACTOR VARIES BY MEASURED TRIGLYCERIDE AND NON-HDLCHOLESTEROL CONCENTRATIONS WITH INCREASED CALCULATED LDL SEENIN HIGHER TRIGLYCERIDE OR LOWER NON-HDL SPECIMENS. FOR MOREINFORMATION, SEE CLIENT ANNOUNCEMENT AT [email or web address] RATIO LDL/HDL (test code = 2238) 1.68 RATIO <3.55 COMPREHENSIVE METABOLIC [id number] 03:35:18* Test Item Value Reference Range Interpretation Comme nts GLUCOSE (test code = 2217) 100 MG/DL 70-99 H BUN (test code = 220) 17 MG/DL 6-20 CREATININE (test code = 2214) 0.83 MG/DL 0.80-1.40 eGFR (2020 CKD-EPI) (test code = 28759) 113 ML/MIN/1.73 >60 CALC BUN/CREAT (test code = 2235) 20 RATIO 6-28 SODIUM (test code = 223) 140 MEQ/L 133-146 POTASSIUM (test code = 2228) 4.4 MEQ/L 3.5-5.4 CHLORIDE (test code = 2215) 103 MEQ/L 95-107 CARBON DIOXIDE (test code = 220) 23 MEQ/L 19-31 CALCIUM (test code = 220) 10.0 MG/DL 8.5-10.5 PROTEIN, TOTAL (test code = 2228) 7.3 G/DL 6.1-8.3 ALBUMIN (test code = 2201) 4.7 G/DL 3.5-5.2 CALC GLOBULIN (test code = 224) 2.6 G/DL 1.9-3.7 CALC A/G RATIO (test code = 2233) 1.8 RATIO 1.0-2.6 BILIRUBIN, TOTAL (test code = 2207) 0.3 MG/DL See_Comment [Automated me ssage] The system which generated this result transmitted reference range: <=1.2. The reference range was not used to interpret this result as normal/abnormal. ALKALINE PHOSPHATASE (test code = 2203) 129 U/L 40-117 H AST (test code = 2218) 19 U/L 9-50 ALT (test code = 221) 39 U/L 5-50 HEMOGLOBIN [id number] 03:02:02* Test Item Value Reference Range Interpretation Comme nts HEMOGLOBIN A1c (test code = 46540) 6.0 % 4.2-5.6 H [employer] GUIDELINES FOR HGB A1C: PREDIABETES/INCREASED RISK . . . . . . . 5.7-6.4% DIAGNOSIS OF DIABETES . . . . . . . . . >=6.5% WITH CONFIRMATION OR APPROPRIATE SYMPTOMS NOTE: ASSAY MAY BE AFFECTED BY HEMOGLOBINOPATHIES (SICKLE CELL ANEMIA, S-C DISEASE, OTHERS) OR ARTIFICIALLY LOWERED BY DECREASED RED CELL SURVIVAL (HEMOLYTIC ANEMIAS, BLOOD LOSS, ETC.). CONSIDER ALTERNATE TESTING OR LABORATORY CONSULTATION. CBC W/AUTO DIFF WITH [id number] 02:37:49* Test Item Value Reference Range Interpretation Comme nts WBC (test code = 1001) 15.3 K/UL 3.5-11.0 H RBC (test code = 1002) 5.40 M/UL 4.50-6.10 HEMOGLOBIN (test code = 1003) 17.0 G/DL 13.5-17.0 HEMATOCRIT (test code = 1004) 49.4 % 40.0-51.0 MCV (test code = 1005) 91.5 fL 80.0-99.0 MCH (test code = 1006) 31.5 PG 25.0-33.0 MCHC (test code = 1007) 34.4 G/DL 31.0-36.0 RDW (test code = 1038) 12.6 % 11.5-15.0 NEUTROPHILS (test code = 1008) 72.6 % LYMPHOCYTES (test code = 1010) 16.4 % MONOCYTES (test code = 1011) 9.8 % EOSINOPHILS (test code = 1012) 0.2 % BASOPHILS (test code = 1013) 0.3 % IMMATURE GRANULOCYTES (test code = 1036) 0.7 % NUCLEATED RBCS (test code = 1065) 0.0 /100 WBC'S See_Comment [Automated message] The system which generated this result transmitted reference range: 0.0. The reference range was not used to interpret this result as normal/abnormal. PLATELET COUNT (test code = 1015) 255 K/UL 130-400 ABSOLUTE NEUTROPHILS (test code = 1066) 11.07 K/UL 1.50-7.50 H ABSOLUTE LYMPHOCYTES (test code = 1067) 2.50 K/UL 1.00-4.00 ABSOLUTE MONOCYTES (test code = 1068) 1.50 K/UL 0.20-1.00 H ABSOLUTE EOSINOPHILS (test code = 1040) 0.03 K/UL 0.00-0.50 ABSOLUTE BASOPHILS (test code = 1069) 0.04 K/UL 0.00-0.20 ABS IMMATURE GRANULOCYTES (test code = 1020) 0.11 K/UL 0.00-0.10 H ABS NUCLEATED RBCS (test code = 05014) 0.00 K/UL 0.00-0.11 [facility] has important pathology staff changes effective 07/03/2022. New pathology staff will provide uninterrupted, excellent patient care and clinical consultation. See URL: [email or web address]. UNLESS OTHERWISE INDICATED, ALL TESTING PERFORMED AT [facility] [address] [place] [address] DIVISION ORDER ANALYST: JEANNIE HAYDEN M.D. CLIA NUMBER [id number] [facility] [place] [place]. [id number] VITAMIN D, 25 [id number] 00:00:00* Test Item Value Reference Range Interpretation Comme [facility] VITAMIN D, 25 OH (test code = 4958) 17 NG/ML Castillo F StivenHEMOGLOBIN [id number] 00:00:00* Test Item Value Reference Range Interpretation Comme [facility] HEMOGLOBIN A1c (test code = 47528) 6.0 % Castillo SaleemLIPID [id number] 00:00:00* Test Item Value Reference Range Interpretation Comme nts CHOLESTEROL (test code = 2210) 222 MG/DL TRIGLYCERIDES (test code = 2232) 43 MG/DL HDL CHOLESTEROL (test code = 2220) 78 MG/DL CALC LDL CHOL (test code = 2237) 131 MG/DL RISK RATIO LDL/HDL (test cod e = 2238) 1.68 RATIO Castillo SaleemCOMPREHENSIVE METABOLIC [id number] 00:00:00* Test Item Value Reference Range Interpretation Comme nts GLUCOSE (test code = 2217) 100 MG/DL BUN (test code = 2208) 17 MG/DL CREATININE (test code = 2214) 0.83 MG/DL eGFR (2020 CKD-EPI) (test code = 92792) 113 ML/MIN/1.73 CALC BUN/CREAT (test code = 2235) 20 RATIO SODIUM (test code = 2231) 140 MEQ/L POTASSIUM (test code = 2228) 4.4 MEQ/L CHLORIDE (test code = 2215) 103 MEQ/L CARBON DIOXIDE (test code = 2206) 23 MEQ/L CALCIUM (test code = 2209) 10.0 MG/DL PROTEIN, TOTAL (test code = 2229) 7.3 G/DL ALBUMIN (test code = 2201) 4.7 G/DL CALC GLOBULIN (test code = 2240) 2.6 G/DL CALC A/G RATIO (test code = 2234) 1.8 RATIO BILIRUBIN, TOTAL (test code = 2207) 0.3 MG/DL ALKALINE PHOSPHATASE (test code = 2204) 129 U/L AST (test code = 2218) 19 U/L ALT (test code = 2219) 39 U/L aCstillo SaleemCBC W/AUTO [id number] 00:00:00* Test Item Value Reference Range Interpretation Comme nts WBC (test code = 1001) 15.3 K/UL RBC (test code = 1002) 5.40 M/UL HEMOGLOBIN (test code = 1003) 17.0 G/DL HEMATOCRIT (test code = 1004) 49.4 % MCV (test code = 1005) 91.5 fL MCH (test code = 1006) 31.5 PG MCHC (test code = 1007) 34.4 G/DL RDW (test code = 1038) 12.6 % NEUTROPHILS (test code = 1008) 72.6 % LYMPHOCYTES (test code = 1010) 16.4 % MONOCYTES (test code = 1011) 9.8 % EOSINOPHILS (test code = 1012) 0.2 % BASOPHILS (test code = 1013) 0.3 % IMMATURE GRANULOCYTES (test code = 1036) 0.7 % NUCLEATED RBCS (test code = 1065) 0.0 /100WBC'S PLATELET COUNT (test code = 1015) 255 K/UL ABSOLUTE NEUTROPHILS (test c ode = 1066) 11.07 K/UL ABSOLUTE LYMPHOCYTES (test c ode = 1067) 2.50 K/UL ABSOLUTE MONOCYTES (test cod e = 1068) 1.50 K/UL ABSOLUTE EOSINOPHILS (test c ode = 1040) 0.03 K/UL ABSOLUTE BASOPHILS (test cod e = 1069) 0.04 K/UL ABS IMMATURE GRANULOCYTES (t est code = 1020) 0.11 K/UL ABS NUCLEATED RBCS (test cod e = 22322) 0.00 K/UL Castillo Osorio. METABOLIC PANEL (79200)2022-02-03 06:27:45* Test Item Value Reference Range Interpretation Comme nts NA (test code = 3532557864) 142 mmol/L 135-145 K (test code = 7870339197) 4.2 mmol/L 3.5-5 CL (test code = 2366428719) 105 mmol/L 98-108 CO2 TOTAL (test code = 7832608828) 26 mmol/L 23-31 AGAP (test code = 7966339247) 2-16 BUN (test code = 7302203279) 16 mg/dL 7-23 GLUCOSE (test code = 4527757764) 97 mg/dL 70-110 CREATININE (test code = 0901533766) 0.94 mg/dL 0.6-1.25 TOTAL BILI (test code = 1286422964) 0.8 mg/dL 0.1-1.1 CALCIUM (test code = 0550214699) 10.0 mg/dL 8.6-10.6 T PROTEIN (test code = 4189880808) 8.0 g/dL 6.3-8.2 ALBUMIN (test code = 1548406758) 4.9 g/dL 3.5-5 ALK PHOS (test code = 6006202987) 151 U/L 34-122 H ALTv (test code = 1742-6) 84 U/L 5-50 H AST(SGOT) (test code = 5087146432) 42 U/L 13-40 H eGFR (test code = 8827940587) mL/min/1.73m2 TOM (test code = TOM) Association of Glomerular Filtration Rate (GFR) and Staging of Kidney Disease* + --+ --+ ------+| GFR (mL/min/1.73 m2) ?| With Kidney Damage ?| ?Without Kidney Damage+ --------+ --------+ +| ?>90 ?| ?Stage one ?| ? Normal ?+ ---+ ---+ -------+| ?60-89 ?| ?Stage two ?| ? Decreased GFR ? + --+ --+ ------+| ?30-59 ?| ?Stage three ?| ? Stage three ? + --+ --+ ------+| ?15-29 ?| ?Stage four ? | ? Stage four ?+ ---+ ---+ -------+| ?<15 (or dialysis) ? ?| ?Stage five ? | ? Stage five ?+ ---+ ---+ -------+ *Each stage assumes the associated GFR [...] imaging tests). Lab Interpretation (test code = 55983-6) [facility]27[facility]* Test Item Value Reference Range Interpretation Comme nts LIPASE (test code = 5712304353) 84 U/L 0-220 Lab Interpretation (test cod e = 13360-7) [facility] [id number] 06:04:42* Test Item Value Reference Range Interpretation Comme nts WBC (test code = 6690-2) See_Comment [Automated messa ge] The system which generated this result transmitted reference range: 4.20 - 10.70 10*3/?L. The reference range was not used to interpret this result as normal/abnormal. RBC (test code = 789-8) See_Comment [Automated [employer] ge] The system which generated this result transmitted reference range: 4.26 - 5.52 10*6/?L. The reference range was not used to interpret this result as normal/abnormal. HGB (test code = 718-7) 15.8 g/dL 12.2-16.4 HCT (test code = 4544-3) 45.4 % 38.4-49.3 MCV (test code = 787-2) 90.8 fL 81.7-95.6 MCH (test code = 785-6) 31.6 pg 26.1-32.7 MCHC (test code = 786-4) 34.8 g/dL 31.2-35 RDW-SD (test code = 66429-8) 38.8 fL 38.5-51.6 RDW-CV (test code = 788-0) 11.7 % 12.1-15.4 L PLT (test code = 777-3) See_Comment [Automated [employer]] The system which generated this result transmitted reference range: 150 - 328 10*3/?L. The reference range was not used to interpret this result as normal/abnormal. MPV (test code = 68233-3) 11.8 fL 9.8-13 NRBC/100 WBC (test code = 7550900687) See_Comment [Automated [employer] ssage] The system which generated this result transmitted reference range: 0.0 - 10.0 /100 WBCs. The reference range was not used to interpret this result as normal/abnormal. NRBC x10^3 (test code = 1084195186) See_Comment [Automated [employer]] The system which generated this result transmitted reference range: 10*3/?L. The reference range was not used to interpret this result as normal/abnormal. GRAN MAT (NEUT) % (test code = 770-8) 69.7 % IMM GRAN % (test code = 3944157655) 0.40 % LYMPH % (test code = 736-9) 20.9 % MONO % (test code = 5905-5) 7.8 % EOS % (test code = 713-8) 0.7 % BASO % (test code = 706-2) 0.5 % GRAN MAT x10^3(ANC) (test code = 2482655104) 6.91 10*3/uL 1.99-6.95 IMM GRAN x10^3 (test code = 2228166357) 0.04 10*3/uL 0-0.06 LYMPH x10^3 (test code = 731-0) 2.07 10*3/uL 1.09-3.23 MONO x10^3 (test code = 742-7) 0.77 10*3/uL 0.36-1.02 EOS x10^3 (test code = 711-2) 0.07 10*3/uL 0.06-0.53 BASO x10^3 (test code = 704-7) 0.05 10*3/uL 0.01-0.09 Lab Interpretation (test code = 83074-2) [facility] 25 [id number] 06:41:19* Test Item Value Reference Range Interpretation Comme [facility] VITAMIN D, 25 OH (test code = 4958) 15 NG/ML SEE BELOW L NOTE: 25-HYDR OXYVITAMIN D ASSAY INCLUDES 25-HYDROXYVITAMIN D2 AND D3. METHODOLOGY IS CHEMILUMINESCENT IMMUNOASSAY. INTERPRETIVE RANGES PEDIATRIC (<17 YEARS) . . . . . . . . . . . NG/ML 20-100ADULT: INSUFFICIENT . . . . . . . . . . . . . . NG/ML <20 SUBOPTIMAL . . . . . . . . . . . . . . . NG/ML 20-29 OPTIMAL . . . . . . . . . . . . . . . . . NG/ML 30-100 HEMOGLOBIN [id number] 06:13:33* Test Item Value Reference Range Interpretation Comme [facility] HEMOGLOBIN A1c (test code = 17920) 5.7 % 4.2-5.6 H TSH, THIRD [id number] 06:00:05* Test Item Value Reference Range Interpretation Comme [facility] TSH, THIRD GENERATION (test code = 2821) 1.470 UIU/ML 0.400-4.100 [id number] 05:59:24* Test Item Value Reference Range Interpretation Comme nts TESTOSTERONE (test code = 2830) 536 NG/DL 300-1080 UNLESS OTHERWISE INDICATED, ALL TESTING PERFORMED [facility] [employer] [address] [place] [id number] DIVISION ORDER ANALYST: ONIEL WOODSON M.D. [place] NUMBER [id number] [facility] [place]. [id number] CBC W/AUTO DIFF WITH [id number] 05:32:39* Test Item Value Reference Range Interpretation Comme nts WBC (test code = 1001) 6.6 K/UL 3.5-11.0 RBC (test code = 1002) 5.23 M/UL 4.50-6.10 HEMOGLOBIN (test code = 1003) 16.2 G/DL 13.5-17.0 HEMATOCRIT (test code = 1004) 46.8 % 40.0-51.0 MCV (test code = 1005) 89.5 fL 80.0-99.0 MCH (test code = 1006) 31.0 PG 25.0-33.0 MCHC (test code = 1007) 34.6 G/DL 31.0-36.0 RDW (test code = 1038) 12.4 % 11.5-15.0 NEUTROPHILS (test code = 1008) 59.2 % LYMPHOCYTES (test code = 1010) 27.8 % MONOCYTES (test code = 1011) 10.1 % EOSINOPHILS (test code = 1012) 2.0 % BASOPHILS (test code = 1013) 0.6 % IMMATURE GRANULOCYTES (test code = 1036) 0.3 % NUCLEATED RBCS (test code = 1065) 0.0 /100 WBC'S See_Comment [Automated messa ge] The system which generated this result transmitted reference range: 0.0. The reference range was not used to interpret this result as normal/abnormal. PLATELET COUNT (test code = 1015) 241 K/UL 130-400 ABSOLUTE NEUTROPHILS (test code = 1066) 3.91 K/UL 1.50-7.50 ABSOLUTE LYMPHOCYTES (test code = 1067) 1.84 K/UL 1.00-4.00 ABSOLUTE MONOCYTES (test code = 1068) 0.67 K/UL 0.20-1.00 ABSOLUTE EOSINOPHILS (test code = 1040) 0.13 K/UL 0.00-0.50 ABSOLUTE BASOPHILS (test code = 1069) 0.04 K/UL 0.00-0.20 ABS IMMATURE GRANULOCYTES (test code = 1020) 0.02 K/UL 0.00-0.10 ABS NUCLEATED RBCS (test code = 53044) 0.00 K/UL 0.00-0.11 COMPREHENSIVE METABOLIC [id number] 03:36:54* Test Item Value Reference Range Interpretation Comme nts GLUCOSE (test code = 2216) 88 MG/DL 70-99 BUN (test code = 2207) 10 MG/DL 6-20 CREATININE (test code = 2213) 0.88 MG/DL 0.80-1.40 eGFR (2020 CKD-EPI) (test code = 22976) 112 ML/MIN/1.73 >60 CALC BUN/CREAT (test code = 5) 11 RATIO 6-28 SODIUM (test code = 2230) 141 MEQ/L 133-146 POTASSIUM (test code = 8) 4.3 MEQ/L 3.5-5.4 CHLORIDE (test code = 5) 103 MEQ/L 95-107 CARBON DIOXIDE (test code = 2205) 25 MEQ/L 19-31 CALCIUM (test code = 2208) 9.8 MG/DL 8.5-10.5 PROTEIN, TOTAL (test code = 2228) 7.3 G/DL 6.1-8.3 ALBUMIN (test code = 2200) 4.3 G/DL 3.5-5.2 CALC GLOBULIN (test code = 2240) 3.0 G/DL 1.9-3.7 CALC A/G RATIO (test code = 223) 1.4 RATIO 1.0-2.6 BILIRUBIN, TOTAL (test code = 220) 0.6 MG/DL See_Comment [Automated me ssage] The system which generated this result transmitted reference range: <=1.2. The reference range was not used to interpret this result as normal/abnormal. ALKALINE PHOSPHATASE (test code = 4) 125 U/L 40-117 H AST (test code = 8) 26 U/L 9-50 ALT (test code = 9) 44 U/L 5-50 LIPID [id number] 03:36:54* Test Item Value Reference Range Interpretation Comme nts CHOLESTEROL (test code = 2210) 226 MG/DL <200 H TRIGLYCERIDES (test code = 2232) 105 MG/DL <150 HDL CHOLESTEROL (test code = 2220) 60 MG/DL >39 CALC LDL CHOL (test code = 2237) 144 MG/DL <100 H NOTE: CALCULATED LDL IS BASED ON MEHDI-ALLEN METHOD WHICHINCLUDES ADJUSTABLE TRIGLYCERIDE:VLDL CHOLESTEROL RATIO.THIS FACTOR VARIES BY MEASURED TRIGLYCERIDE AND NON-HDLCHOLESTEROL CONCENTRATIONS WITH INCREASED CALCULATED LDL SEENIN HIGHER TRIGLYCERIDE OR LOWER NON-HDL SPECIMENS. FOR MOREINFORMATION, SEE CLIENT ANNOUNCEMENT AT [email or web address] RISK RATIO LDL/HDL (test code = 2238) 2.40 RATIO <3.55 HEMOGLOBIN [id number] 00:00:00* Test Item Value Reference Range Interpretation Comme nts HEMOGLOBIN A1c (test code = 35275) 5.7 % Castillo Foley [facility] W/AUTO [id number] 00:00:00* Test Item Value Reference Range Interpretation Comme nts WBC (test code = 1001) 6.6 K/UL RBC (test code = 1002) 5.23 M/UL HEMOGLOBIN (test code = 1003) 16.2 G/DL HEMATOCRIT (test code = 1004) 46.8 % MCV (test code = 1005) 89.5 fL MCH (test code = 1006) 31.0 PG MCHC (test code = 1007) 34.6 G/DL RDW (test code = 1038) 12.4 % NEUTROPHILS (test code = 1008) 59.2 % LYMPHOCYTES (test code = 1010) 27.8 % MONOCYTES (test code = 1011) 10.1 % EOSINOPHILS (test code = 1012) 2.0 % BASOPHILS (test code = 1013) 0.6 % IMMATURE GRANULOCYTES (test code = 1036) 0.3 % NUCLEATED RBCS (test code = 1065) 0.0 /100WBC'S PLATELET COUNT (test code = 1015) 241 K/UL ABSOLUTE NEUTROPHILS (test c ode = 1066) 3.91 K/UL ABSOLUTE LYMPHOCYTES (test c ode = 1067) 1.84 K/UL ABSOLUTE MONOCYTES (test cod e = 1068) 0.67 K/UL ABSOLUTE EOSINOPHILS (test c ode = 1040) 0.13 K/UL ABSOLUTE BASOPHILS (test cod e = 1069) 0.04 K/UL ABS IMMATURE GRANULOCYTES (t est code = 1020) 0.02 K/UL ABS NUCLEATED RBCS (test cod e = 14744) 0.00 K/UL Castillo SaleemCOMPREHENSIVE METABOLIC [id number] 00:00:00* Test Item Value Reference Range Interpretation Comme nts GLUCOSE (test code = 2217) 88 MG/DL BUN (test code = 2208) 10 MG/DL CREATININE (test code = 2214) 0.88 MG/DL eGFR (2020 CKD-EPI) (test code = 32639) 112 ML/MIN/1.73 CALC BUN/CREAT (test code = 2235) 11 RATIO SODIUM (test code = 2231) 141 MEQ/L POTASSIUM (test code = 2228) 4.3 MEQ/L CHLORIDE (test code = 2215) 103 MEQ/L CARBON DIOXIDE (test code = 2206) 25 MEQ/L CALCIUM (test code = 2209) 9.8 MG/DL PROTEIN, TOTAL (test code = 2229) 7.3 G/DL ALBUMIN (test code = 2201) 4.3 G/DL CALC GLOBULIN (test code = 2240) 3.0 G/DL CALC A/G RATIO (test code = 2234) 1.4 RATIO BILIRUBIN, TOTAL (test code = 2207) 0.6 MG/DL ALKALINE PHOSPHATASE (test code = 2204) 125 U/L AST (test code = 2218) 26 U/L ALT (test code = 2219) 44 U/L Castillo SaleemLIPID [id number] 00:00:00* Test Item Value Reference Range Interpretation Comme nts CHOLESTEROL (test code = 2210) 226 MG/DL TRIGLYCERIDES (test code = 2232) 105 MG/DL HDL CHOLESTEROL (test code = 2220) 60 MG/DL CALC LDL CHOL (test code = 2237) 144 MG/DL RISK RATIO LDL/HDL (test cod e = 2238) 2.40 RATIO Castillo [id number] 00:00:00* Test Item Value Reference Range Interpretation Comme nts TSH, THIRD GENERATION (test code = 2821) 1.470 UIU/ML Castillo SaleemVITAMIN D, 25 [id number] 00:00:00* Test Item Value Reference Range Interpretation Comme [facility] VITAMIN D, 25 OH (test code = 4958) 15 NG/ML Castillo [id number] 00:00:00* Test Item Value Reference Range Interpretation Comme nts TESTOSTERONE (test code = 2830) 536 NG/DL Castillo Saleem"
[2024-06-09 23:58] LABS: Specific Gravity 1.016 (1.005-1.030); Urine Bilirubin NEGATIVE (Negative); Urine Blood Negative (Negative); Urine Clarity Clear (Clear); Urine Color Light-Yellow (Yellow); Urine Glucose NEGATIVE (Negative); Urine Ketones NEGATIVE (Negative); Urine Microscopic Reflex YN NO UMIC; Urine Nitrite NEGATIVE (Negative); Urine Protein NEGATIVE (Negative); Urine Urobilinogen Normal (Normal)
[2024-06-10 01:15] LABS: Absolute Basophils 0.1 K/uL (0-0.5); Absolute Eosinophils 0.1 K/uL (0-0.5); Absolute Lymphocytes (CBC) 2.2 K/uL (0.7-4.9); Absolute Monocytes 0.8 K/uL (0.1-1.3); Hemoglobin 17.5 g/dL (13.6-17.9); MCV 93.7 fL (80-100)
--- NOTE | 2024-06-10 01:15 | RAD REPORT ---
EXAM DESCRIPTION: Abdomen Exam Limited RadLex: US ABDOMEN LIMITED CLINICAL HISTORY: 43 years Male, RUQ abd pain COMPARISON: CT 06/10/2024 FINDINGS: Grayscale and color Doppler images of the right upper quadrant were obtained centered over the gallbl adder. There is a shadowing gallstone at the level of the gallbladder neck measuring up to 1.2 cm. Gallbladder wall is not significantly thickened. No pericholecystic fluid collection. Reportedly nega tive sonographic Suarez sign. Common duct measures up to 0.4 cm. IMPRESSION: Cholelithiasis without additional sonographic evidence of acute cholecystitis. Electronically signed by: Kaylyn Paige MD 06/10/2024 01:05 AM [facility] Due to temporary technical issues with the PACS/Vaunte scribe reporting system, reports are being signed by the in-house radiologist without review as a courtesy to ensure prompt reporting the interpreting radiologist is fully responsible for the content of the report. Transcribed Date/Time: 06/10/2024 1:15 AM
[2024-06-10] MEDS ORDERED: ONDANSETRON 4 MG/2 ML VIAL ONE (01:18)
[2024-06-10] MEDS ORDERED: MORPHINE 4 MG/ML SYR ONE (01:19)
[2024-06-10 01:24] LABS: Absolute Neutrophil 5.4 K/uL (1.8-8.0); Basophils % 0.9 % (0-1.3); Eosinophils % 1.2 % (0-4.4); Hematocrit 52.9 % (39.6-49.0); Lymphocytes % 25.7 % (15.3-44.8); MCHC 33.1 g/dL (32.0-36.0); MPV 10.2 fL (7.6-11.3); Monocytes % 8.9 % (3.3-12.3); Neutrophils % 63.3 % (41.7-73.7); Nucleated Red Blood Cells % 0.2 % (0-0); Platelets 238 thou/uL (152-406); RBC Red Blood Cell Count 5.65 M/uL (4.33-5.43); Red Cell Distribution Width 13.3 % (12.1-15.2)
[2024-06-10 01:26] LABS: Anion Gap 8.8 mEq/L (5.0-15.0); Bilirubin Total 0.5 mg/dL (0.2-1.0); Potassium 3.8 mEq/L (3.5-5.1)
--- NOTE | 2024-06-10 01:29 | RAD REPORT ---
EXAM: CT Abdomen and Pelvis Without Intravenous Contrast CLINICAL HISTORY: The patient is 43 years old and is Male; right abd pain TECHNIQUE: Axial computed tomography images of the abdomen and pelvis without intravenous contrast. Sagittal and coronal reformatted images were created and reviewed. This CT exam was performed using one or more of the following dose reduction techniques: automated exposure control, adjustment of the m A and/or kV according to patient size, and/or use of iterative reconstruction technique. COMPARISON: No relevant prior studies available. FINDINGS: LUNG BASES: Unremarkable. No mass. No consolidation. ABDOMEN: LIVER: The liver is homogeneous and mildly fatty. GALLBLADDER AND BILE DUCTS: The gallbladder is distended. No calcified gallstones or ductal dilat ation is seen. PANCREAS: Unremarkable. No ductal dilation. SPLEEN: Unremarkable. ADRENALS: Unremarkable. No mass. KIDNEYS AND URETERS: Bilateral punctate intrarenal calcifications are present. There is no hydron ephrosis or hydroureter of either kidney. No obstructing renal or ureteral calculus is seen. STOMACH AND BOWEL: The stomach is distended with fluid. The small bowel is normal in caliber. Sto ol is present throughout the colon. Scattered colonic diverticula are present. Mild colonic wall thickening and surrounding inflammation involving the sigmoid colon is present. There is no evidence of bowel obstruction. PELVIS: APPENDIX: The appendix is normal in caliber without surrounding inflammation. BLADDER: The bladder is not well-distended. REPRODUCTIVE: Unremarkable as visualized. ABDOMEN and PELVIS: INTRAPERITONEAL SPACE: Unremarkable. No free air. No significant fluid collection. BONES/JOINTS: No acute fracture. SOFT TISSUES: A tiny fat-containing umbilical hernia is present. VASCULATURE: Unremarkable. No abdominal aortic aneurysm. LYMPH NODES: Unremarkable. No enlarged lymph nodes. IMPRESSION: 1. Findings suggest mild sigmoid colon diverticulitis. 2. Bilateral nephrolithiasis without obstruction. Electronically signed by: Rachna Mendieta MD 06/10/2024 01:25 AM [facility] Due to temporary technical issues with the PACS/[facility] reporting system, reports are being momo d by the in-house radiologist without review as a courtesy to ensure prompt reporting the interpreting radiologist is fully responsible for the content of the report. Transcribed Date/Time: 06/10/2024 1:29 AM
--- NOTE | 2024-06-10 01:51 | EDPHYS ---
Physician Documentation [facility] Name: Yury Jolley Age: 43 yrs Sex: Male : 1980 Arrival Date: 06/09/2024 Time: 23:14 Bed 4 Private MD: ED Physician Apollo Chow HPI: 06/09 23:27 This 43 yrs old Male presents to ER via Unassigned with complaints of rn abdominal pain. 23:28 The patient presents with abdominal pain in the right upper quadrant. Onset: The rn symptoms/episode began/occurred 2 hour(s) ago. The symptoms do not radiate. Associated signs and symptoms: Pertinent negatives: nausea and vomiting, anorexia, blood in stools, chest pain, constipation, diarrhea, dysuria, fever, hematuria, nausea, shortness of breath, testicular pain, vomiting blood. The symptoms are described as achy. Modifying factors: The symptoms are alleviated by nothing, the symptoms are aggravated by touching the area. Severity of pain: At its worst the pain was moderate in the emergency department the pain is unchanged. The patient has not experienced similar symptoms in the past. Patient reports right sided abdominal pain, began 2 hours ago, no fever or chills. No vomiting or diarrhea. Reports history of kidney stones but this feels different to him. Has never had any gallbladder or liver problems. No trauma. No blood in stool. No chest pain. No shortness of breath.. Historical: - Allergies: 23:37 No Known Allergies; cm10 - PMHx: 23:37 diabetes mellitus; Leukemia; cm10 - PSHx: 23:37 None; cm10 - Immunization history:: Adult Immunizations up to date. - Infectious Disease History:: Denies. - Family history:: not pertinent. - Social history:: Smoking status: Reported history of juuling and/or vaping. - Hospitalizations: : No recent hospitalization is reported. ROS: 23:28 Constitutional: Negative for fever, chills, and weight loss, Cardiovascular: Negative rn for chest pain, palpitations, and edema, Respiratory: Negative for shortness of breath, cough, wheezing, and pleuritic chest pain, Abdomen/GI: Positive for right sided abdominal pain Back: Negative for injury and pain, : Negative for injury, bleeding, discharge, and swelling, MS/Extremity: Negative for injury and deformity, Skin: Negative for injury, rash, and discoloration, Neuro: Negative for headache, weakness, numbness, tingling, and seizure, Exam: 23:28 Constitutional: This is a well developed, well nourished patient who is awake, alert, rn and in no acute distress. Ambulatory to triage without assistance Head/Face: Normocephalic, atraumatic. Cardiovascular: Regular rate and rhythm. No pulse deficits. Respiratory: No increased work of breathing, no retractions or nasal flaring. Abdomen/GI: Soft, mild right upper quadrant and right flank tenderness underneath costal margin. Back: No spinal tenderness. No costovertebral tenderness. Full range of motion. Vital Signs: 23:36 BP 145 / 108; Pulse 87; Resp 15; Temp 98.6; Pulse Ox 100% ; Weight 108.86 kg; Height 5 cm10 ft. 11 in. ; Pain 8/10; 06/10 01:34 BP 153 / 107; Pulse 80; Resp 18; Temp 98.6; Pulse Ox 100% ; Pain 5/10; bm8 03:18 BP 147 / 110; Pulse 70; Resp 17; Temp 98.6; Pulse Ox 96% ; Pain 4/10; bm8 06/09 23:36 Body Mass Index 33.47 (108.86 kg, 180.34 cm) cm10 06/09 23:36 Pain Scale: Adult cm10 06/10 01:34 Pain Scale: Adult bm8 03:18 Pain Scale: Adult bm8 Marion Coma Score: 01:34 Eye Response: spontaneous(4). Motor Response: obeys commands(6). Verbal Response: bm8 oriented(5). Total: 15. 03:18 Eye Response: spontaneous(4). Motor Response: obeys commands(6). Verbal Response: bm8 oriented(5). Total: 15. MDM: 06/09 23:22 Medical Screening Exam initiated rn 06/10 01:50 Differential diagnosis: cholecystitis, Cholelithiasis, diverticulitis, gastritis, rn gastroesophageal reflux disease, non-specific abd pain, pancreatitis, Peptic Ulcer Disease, Perf. Duodenal Ulcer, Perf. Gastric Ulcer. Data reviewed: vital signs, nurses notes, lab test result(s), radiologic studies, CT scan, ultrasound, and as a result, I will admit patient. Consideration of Admission/Observation Patient was admitted/placed on observation. Escalation of care including admission/observation considered. Counseling: I had a detailed discussion with the patient and/or guardian regarding the historical points, exam findings, and any diagnostic results supporting the discharge/admit diagnosis, lab results, radiology results, the need for further work-up and treatment in the hospital. ED course: Patient has 2 problems, acute diverticulitis as well as gallbladder stone stuck in the neck. We have GI and surgery on-call. Will admit with IV antibiotics to hospitalist service for consultation in the morning.. 06/09 23:25 Order name: CBC with Diff; Complete Time: 01:40 cm10 06/09 23:25 Order name: CMP; Complete Time: 01:40 cm10 06/09 23:25 Order name: Lipase; Complete Time: 01:40 cm10 06/09 23:25 Order name: Urinalysis w/ reflexes; Complete Time: 01:40 cm10 06/10 05:55 Order name: Urinalysis w/ reflexes EDMS 06/10 05:55 Order name: CBC with Automated Diff EDMS 06/10 05:55 Order name: CBC with Automated Diff EDMS 06/10 05:55 Order name: Comprehensive Metabolic Panel EDMS 06/10 05:55 Order name: Comprehensive Metabolic Panel EDMS 06/10 07:55 Order name: Hemoglobin A1c EDMS 06/09 23:25 Order name: US Abdomen Limited; Complete Time: 01:40 cm10 06/09 23:25 Order name: CT Stone Protocol; Complete Time: 01:40 cm10 06/09 23:25 Order name: IV Saline Lock; Complete Time: 01:26 cm10 06/09 23:25 Order name: Labs collected and sent; Complete Time: 23:50 cm10 06/10 00:06 Order name: Misc. Order: RECOLLECT ALL LABS; Complete Time: 01:17 rv1 Administered Medications: 01:34 Drug: Ondansetron IVP 4 mg IVP once; over 2 minutes Route: IVP; Site: right forearm; bm8 03:21 Follow up: Response: No adverse reaction bm8 01:34 Drug: morphine IVP or IV 4 mg IVP once over 4 mins Route: IVP; Infused Over: 4 mins; bm8 Site: right forearm; 03:22 Follow up: Response: No adverse reaction bm8 03:31 Drug: Rocephin IV 1 grams IV at calculated rate once; Given slow IV push per pharmacy bm8 instructions Route: IV; Rate: calculated rate; Site: right forearm; 03:34 Follow up: Response: No adverse reaction; IV Status: Infusion continued upon admission bm8 03:31 Drug: metroNIDAZOLE IVPB 500 mg 100 ml IVPB at 200 ml/hr once over 30 mins Volume: 100 bm8 ml; Route: IVPB; Rate: 200 ml/hr; Infused Over: 30 mins; Site: right forearm; 03:33 Follow up: Response: No adverse reaction; IV Status: Infusion continued upon admission bm8 Disposition Summary: 06/10/24 01:51 Hospitalization Ordered Notes: Hospitalization Status: Inpatient Admission rn Provider: Yasmine Seals rn Condition: Stable rn Problem: new rn Symptoms: have improved rn Bed/Room Type: Standard rn Location: [facility] ER HOLD(06/10/24 01:54) rv1 Room Assignment: ERHOLD-(06/10/24 01:54) rv1 Diagnosis - Diverticulitis of large intestine without perforation or abscess without bleeding rn - Other cholelithiasis without obstruction rn Forms: - Medication Reconciliation Form rn - SBAR form rn - Leadership Thank You Letter rn Signatures: Dispatcher [employer] [facility] Apollo Chow MD MD rn Paloma Gonzalez rv1 Amy Quijano RN RN cm10 Amari Ragland RN RN bm8 Corrections: (The following items were deleted from the chart) 06/09 23:26 23:26 Stone Protocol+CT.RAD.BRZ ordered. [facility] 06/10 01:54 01:51 Telemetry/MedSurg (Inpatient) rn rv1 01:54 01:51 rn rv1
--- NOTE | 2024-06-10 01:51 | ER ---
Nurse's Notes [facility] Name: Yury Jolley Age: 43 yrs Sex: Male : 1980 Arrival Date: 06/09/2024 Time: 23:14 Bed 4 Private MD: Diagnosis: Diverticulitis of large intestine without perforation or abscess without bleeding;Other cholelithiasis without obstruction Presentation: 06/09 23:36 Chief complaint: Patient states: RUQ abdominal pain that radiates to back onset today cm10 at 2030. No nausea or vomiting. Coronavirus screen: Client denies travel out of the [place] in the last 14 days. Ebola Screen: Patient denies travel to an Ebola-affected area in the 21 days before illness onset. Initial Sepsis Screen: Does the patient meet any 2 criteria? No. Patient's initial sepsis screen is negative. Does the patient have a suspected source of infection? No. Patient's initial sepsis screen is negative. Risk Assessment: Do you want to hurt yourself or someone else? Patient reports no desire to harm self or others. Onset of symptoms was June 09, 2024. 23:36 Method Of Arrival: Ambulatory cm10 23:36 Acuity: ELIER 3 cm10 Triage Assessment: 23:37 General: Appears in no apparent distress. uncomfortable, Behavior is calm, cooperative. cm10 Pain: Complains of pain in right upper quadrant Pain radiates to back Pain currently is 8 out of 10 on a pain scale. Neuro: No deficits noted. Level of Consciousness is awake, alert, obeys commands, Oriented to person, place, time, situation, Appropriate for age. Respiratory: No deficits noted. Airway is patent Respiratory effort is even, unlabored, Respiratory pattern is regular, symmetrical. GI: Reports upper abdominal pain. Historical: - Allergies: 23:37 No Known Allergies; cm10 - PMHx: 23:37 diabetes mellitus; Leukemia; cm10 - PSHx: 23:37 None; cm10 - Immunization history:: Adult Immunizations up to date. - Infectious Disease History:: Denies. - Family history:: not pertinent. - Social history:: Smoking status: Reported history of juuling and/or vaping. - Hospitalizations: : No recent hospitalization is reported. Screenin:38 [facility] ED Fall Risk Assessment (Adult) History of falling in the last 3 months, cm10 including since admission No falls in past 3 months (0 pts) Confusion or Disorientation No (0 pts) Intoxicated or Sedated No (0 pts) Impaired Gait No (0 pts) Mobility Assist Device Used No (0 pt) Altered Elimination No (0 pt) Score/Fall Risk Level 0 - 2 = Low Risk Oriented to surroundings, Maintained a safe environment, Hourly rounding (assess needs \T\ fall precautionary measures) done. Abuse screen: Denies threats or abuse. Denies injuries from another. Nutritional screening: No deficits noted. Tuberculosis screening: No symptoms or risk factors identified. Assessment: 06/10 01:34 Reassessment: Patient appears in no apparent distress at this time. Patient and/or bm8 family updated on plan of care and expected duration. Pain level reassessed. Patient is alert, oriented x 3, equal unlabored respirations, skin warm/dry/pink. General: Appears in no apparent distress. comfortable, Behavior is calm, cooperative, appropriate for age. Pain: Complains of pain in back and abdomen and right upper quadrant Pain currently is 5 out of 10 on a pain scale. Quality of pain is described as sharp. Neuro: No deficits noted. Cardiovascular: No deficits noted. Respiratory: No deficits noted. GI: Abdomen is round non-distended, Bowel sounds present X 4 quads. Abdomen is tender to palpation in anterior aspect of right lateral abdomen, posterior aspect of right lateral abdomen and right upper quadrant Reports Pain is 5 out of 10 on a pain scale. : No signs and/or symptoms were reported regarding the genitourinary system. EENT: No signs and/or symptoms were reported regarding the EENT system. Derm: No signs and/or symptoms reported regarding the dermatologic system. Musculoskeletal: No signs and/or symptoms reported regarding the musculoskeletal system. 03:18 Reassessment: Patient appears in no apparent distress at this time. Patient and/or bm8 family updated on plan of care and expected duration. Pain level reassessed. Patient is alert, oriented x 3, equal unlabored respirations, skin warm/dry/pink. Patient states feeling better. Patient states symptoms have improved. Vital Signs: 06/09 23:36 BP 145 / 108; Pulse 87; Resp 15; Temp 98.6; Pulse Ox 100% ; Weight 108.86 kg; Height 5 cm10 ft. 11 in. ; Pain 8/; 06/10 01:34 BP 153 / 107; Pulse 80; Resp 18; Temp 98.6; Pulse Ox 100% ; Pain 5/10; bm8 03:18 BP 147 / 110; Pulse 70; Resp 17; Temp 98.6; Pulse Ox 96% ; Pain 4/10; bm8 06/09 23:36 Body Mass Index 33.47 (108.86 kg, 180.34 cm) cm10 06/09 23:36 Pain Scale: Adult cm10 06/10 01:34 Pain Scale: Adult bm8 03:18 Pain Scale: Adult bm8 King Coma Score: 01:34 Eye Response: spontaneous(4). Motor Response: obeys commands(6). Verbal Response: bm8 oriented(5). Total: 15. 03:18 Eye Response: spontaneous(4). Motor Response: obeys commands(6). Verbal Response: bm8 oriented(5). Total: 15. ED Course: 06/09 23:20 Patient arrived in ED. gm2 23:22 Apollo Chow MD is Attending Physician. rn 23:37 Triage completed. cm10 23:37 Arm band placed on right wrist. Patient placed in waiting room. cm10 23:38 Patient has correct armband on for positive identification. Provided Education on: ER cm10 process and procedures. 23:50 CBC with Diff Sent. cm10 23:50 CMP Sent. cm10 23:50 Lipase Sent. cm10 23:50 Urinalysis w/ reflexes Sent. cm10 23:50 Missed attempt(s): 20 gauge in right in left forearm. antecubital area. Bleeding cm10 controlled, band aid applied, catheter tip intact. 06/10 00:06 US Abdomen Limited In Process Unspecified. EDMS 00:14 CT Stone Protocol In Process Unspecified. EDMS 01:26 Amari Ragland, RN is Primary Nurse. bm8 01:26 No provider procedures requiring assistance completed. Initial lab(s) drawn, by alvin brewer sent to lab. Inserted saline lock: 20 gauge in right forearm, using aseptic technique. ,using aseptic technique. with ultra sound Blood collected. Flushed with 10 mL NS. Patient maintains SpO2 saturation greater than 95% on room air. 01:34 Client placed on continuous cardiac and pulse oximetry monitoring. NIBP monitoring bm8 applied. Pulse ox on. NIBP on. Door closed. Noise minimized. Warm blanket given. Pillow given. Verbal reassurance given. Head of bed. 01:51 Yasmine Seals MD is Hospitalizing Provider. rn 03:33 Patient admitted, IV remains in place. bm8 Administered Medications: 01:34 Drug: Ondansetron IVP 4 mg IVP once; over 2 minutes Route: IVP; Site: right forearm; bm8 03:21 Follow up: Response: No adverse reaction bm8 01:34 Drug: morphine IVP or IV 4 mg IVP once over 4 mins Route: IVP; Infused Over: 4 mins; bm8 Site: right forearm; 03:22 Follow up: Response: No adverse reaction bm8 03:31 Drug: Rocephin IV 1 grams IV at calculated rate once; Given slow IV push per pharmacy bm8 instructions Route: IV; Rate: calculated rate; Site: right forearm; 03:34 Follow up: Response: No adverse reaction; IV Status: Infusion continued upon admission bm8 03:31 Drug: metroNIDAZOLE IVPB 500 mg 100 ml IVPB at 200 ml/hr once over 30 mins Volume: 100 bm8 ml; Route: IVPB; Rate: 200 ml/hr; Infused Over: 30 mins; Site: right forearm; 03:33 Follow up: Response: No adverse reaction; IV Status: Infusion continued upon admission bm8 Medication: 06/09 23:38 VIS not applicable for this client. cm10 Outcome: 02 01:51 Decision to Hospitalize by Provider. rn 03:33 Admitted to ER Hold. Please see [facility] for further documentation. bm8 03:33 Condition: stable 03:33 Instructed on follow up and referral plans. the need for admit, Demonstrated understanding of follow-up care, medications, 15:47 Patient left the ED. ko1 Signatures: Dispatcher [employer] EDMS Apollo Chow MD MD rn Oliver, Kathy, RN RN ko1 Amy Quijano RN RN 10 Karla Mcfarland 2 Amari Ragland RN RN bm8
[2024-06-10] MEDS ORDERED: METRONIDAZOLE 500mg IVPB 500 MG/100 ML BAG IV ONE (03:25)
[2024-06-10] MEDS ORDERED: CEFTRIAXONE 1000 MG/VIAL ONE (03:25)
[2024-06-10] MEDS ORDERED: ACETAMINOPHEN 325 MG TABLET PO PRN (05:50)
[2024-06-10] MEDS: NA CHLORIDE 0.9% 1,000 ML IV SCH (06:00)
--- NOTE | 2024-06-10 06:02 | P.HP ---
Certification for Inpatient Patient admitted to: Inpatient With expected LOS: >2 Midnights Practitioner: I am a practitioner with admitting privileges, knowledge of patient current condition, hospital course, and medical plan of care. Services: Services provided to patient in accordance with Admission requirements found in Title 42 Section 412.3 of the Code of Federal Regulations Patient History Date of Service: 06/10/24 Reason for admission: abdominal pain History of Present Illness: 43-year-old male presented to the ER with complaints of right lower quadrant that has radiated to the suprapubic region abdominal pain since 8 PM last night. He denies any fevers or diarrhea. States symptoms occurred acutely. He had a CT scan done in the emergency room that was suggestive of diverticulitis. The patient reports that he does have a possible diagnosis of leukemia in the past. This has not been followed up. It is also reported that he may have a previous diagnosis of diabetes. Allergies No Known Allergies Allergy (Verified 06/10/24 04:49) Review of Systems 10-point ROS is otherwise unremarkable Physical Examination - Physical Exam General: Alert, Oriented x3 HEENT: Atraumatic, Normocephalic Respiratory: Clear to auscultation bilaterally, Normal air movement Cardiovascular: No edema, Regular rate/rhythm Gastrointestinal: No masses, Tenderness Integumentary: No rashes Neurological: Normal speech - Studies Laboratory Data (last 24 hrs) 06/10/24 06/10/24 00:43 00:43 WBC 8.50 Hgb 17.5 Hct 52.9 H Plt Count 238 Sodium 139 Potassium 3.8 BUN 12 Creatinine 0.97 Glucose 87 Total Bilirubin 0.5 AST 33 ALT 104 H Alkaline Phosphatase 177 H Lipase 31 Assessment and Plan - Problems (Diagnosis) (1) Diverticulitis Current Visit: Yes Status: Acute - Plan 43-year-old male presents with 1 day history of right lower quadrant abdominal pain that has since radiated #Abdominal pain #diverticulitis #raised ALT --admit to med surg --CLD --IVF --prn analgesics and antiemetics --IV zosyn #previous diagnosis leukemia #previous diagnosis diabetes --check AIC SCDs Full code - Advance Directives Does patient have a Living Will: No Does patient have a Durable POA for Healthcare: No
[2024-06-10 06:28] VITALS: TEMP 98.6; BMI 33.5
[2024-06-10] MEDS ORDERED: NA CHLORIDE 0.9% 1,000 ML ONE (06:31)
[2024-06-10] MEDS ORDERED: NA CHLORIDE 0.9% 100 ML ONE (08:10)
[2024-06-10] MEDS ORDERED: PIPERACIL/TAZO 3.375 GM VIAL IV ONE (08:11)
[2024-06-10] MEDS: PIPER TAZO 3.375 GM in NA CHLORIDE 0.9% 100 ML IV SCH (08:20)
[2024-06-10] MEDS ORDERED: ONDANSETRON 4 MG (ODT) TAB ONE (12:13)
[2024-06-10] MEDS ORDERED: MORPHINE 2 MG/ML SYR ONE (12:14)
[2024-06-10 12:16] VITALS: BP 140/99
[2024-06-10] MEDS: MORPHINE 2 MG/ML SYR IV PRN (12:16)
[2024-06-10] MEDS: ONDANSETRON 4 MG (ODT) TAB PO PRN (12:17)
--- NOTE | 2024-06-10 15:19 | P.DS ---
Admission Date: 06/10/24 Discharge Date: 06/10/24 Disposition: ROUTINE DISCHARGE Discharge Condition: GOOD Reason for Admission: abdominal pain Brief History of Present Illness: 43-year-old male presented to the ER with complaints of right lower quadrant that has radiated to the suprapubic region abdominal pain since 8 PM last night. He denies any fevers or diarrhea. States symptoms occurred acutely. He had a CT scan done in the emergency room that was suggestive of diverticulitis. The patient reports that he does have a possible diagnosis of leukemia in the past. This has not been followed up. It is also reported that he may have a previous diagnosis of diabetes. - Physical Exam General: Alert, Oriented x3 HEENT: Atraumatic, Normocephalic Respiratory: Clear to auscultation bilaterally, Normal air movement Cardiovascular: No edema, Regular rate/rhythm Gastrointestinal: No masses, Tenderness Integumentary: No rashes Neurological: Normal speech Hospital Course: 43-year-old male presented to the ER with complaints of right lower quadrant that has radiated to the suprapubic region abdominal pain since 8 PM last night. He denies any fevers or diarrhea. States symptoms occurred acutely. He had a CT scan done in the emergency room that was suggestive of diverticulitis. The patient reports that he does have a possible diagnosis of leukemia in the past. Follows with oncology. It is also reported that he may have a previous diagnosis of diabetes. Patient was seen by surgery, can follow-up with p.o. antibiotics, follow-up with surgery in 1 week, diet advanced, discharged home, follow-up with PCP after discharge Discharged home on Augmentin 1 p.o. twice daily for 7 days #14 Zofran 4 mg ODT 1 as needed for nausea every 6 hours Recommend low-fat diet Assessment Cholecystitis-stable, discharged home with p.o. antibiotics, follow-up with surgery in 1 week Diverticulitis, no reported loose stools, History of leukemia, patient needs to follow-up with oncology after discharge Continue home medicines as previously prescribed GOAL: Clear understanding of disease process INSTRUCTIONS: Physician Discharge Instructions: -Follow-up with surgery after discharge call office for appointment -Follow-up with PCP in 1 to 2 weeks -Please call Dr. Parisi at [phone] if any questions regarding hospital stay -Please call nursing station at [phone] if any nursing or medication questions -Return to the emergency room if symptoms worsen Diet: ADA, low sodium Activity: Fall precautions Vital Signs/Physical Exam: Temp Pulse Resp BP Pulse Ox 98.6 F 70 18 140/99 H 99 06/10/24 06:15 06/10/24 12:00 06/10/24 12:16 06/10/24 12:00 06/10/24 12:16 Laboratory Data at Discharge: WBC 8.50 thou/uL (4.3-10.9) 06/10/24 00:43 Hgb 17.5 g/dL (13.6-17.9) 06/10/24 00:43 Hct 52.9 % (39.6-49.0) H 06/10/24 00:43 Plt Count 238 thou/uL (152-406) 06/10/24 00:43 Sodium 139 mEq/L (136-145) 06/10/24 00:43 Potassium 3.8 mEq/L (3.5-5.1) 06/10/24 00:43 BUN 12 mg/dL (7-18) 06/10/24 00:43 Creatinine 0.97 mg/dL (0.70-1.30) 06/10/24 00:43 Glucose 87 mg/dL (74-106) 06/10/24 00:43 Total Bilirubin 0.5 mg/dL (0.2-1.0) 06/10/24 00:43 AST 33 U/L (15-37) 06/10/24 00:43 ALT 104 U/L (16-61) H 06/10/24 00:43 Alkaline Phosphatase 177 U/L (45-117) H 06/10/24 00:43 Lipase 31 U/L (13-75) 06/10/24 00:43 Home Medications: Hydrocodone 10/APAP 325 [Lynn 10/325] 1 tab PO Q8H PRN #20 tab 06/10/24 Levofloxacin [Levaquin] 500 mg PO DAILY #7 tab 06/10/24 metroNIDAZOLE [Flagyl] 500 mg PO Q8H #20 06/10/24 metroNIDAZOLE [Metronidazole] 500 mg PO Q8H #21 tab 06/10/24 New Medications: metroNIDAZOLE [Flagyl] 500 mg PO Q8H #20 Levofloxacin [Levaquin] 500 mg PO DAILY #7 tab metroNIDAZOLE [Metronidazole] 500 mg PO Q8H #21 tab Hydrocodone 10/APAP 325 [Lynn 10/325] 1 tab PO Q8H PRN #20 tab PRN Reason: Pain Physician Discharge Instructions: -DC IV and DC home -Follow-up with PCP in 1 to 2 weeks -Follow-up with Surgery, Dr. Zaldivar, in 1 to 2 weeks -Please call Dr. Parisi at [phone] if any questions regarding hospital stay -Please call nursing station at [phone] if any nursing or medication questions -Return to the emergency room if symptoms worsen Diet: Regular Activity: Fall precautions Followup: NONE,NONE [Primary Care Provider] - David Zaldivar MD [ACTIVE - CAN ADMIT] - Physician Review: Patient Assessed, Agree with Above Assessment and Plan (45)
[2024-06-10 15:55] VITALS: O2SAT 96
== END 2024-06-10 15:49 | disposition home or self-care (01) | DRG 392 ==
LOC: ER 23:14 → ERHOLD 06-10 05:50
PROVIDERS: ADMIT Internal Medicine; ATTEND Hospitalist
DX: K57.32 Diverticulitis of large intestine without perforation or abscess without bleeding (principal); K80.80 Other cholelithiasis without obstruction; E11.9 Type 2 diabetes mellitus without complications; Z79.899 Other long term (current) drug therapy
CPT/HCPCS: 36415; 74176; 76377; 76705; 80053; 81003; 83036; 83690; 85025; 96374; 96375; 99285; J0696; J2270; J2405; J2543; J7030; Q0162

== ENCOUNTER 2024-12-29 23:21 | Emergency (ER) | payer OTHER ==
--- OUTSIDE RECORDS SUMMARY | 2024-12-29 23:27 | XMS REPORT | Continuity of Care Document ---
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 Name Role Phone NONE, NONE Primary Care Physician UnavailGraham Morrissey Attending Clinician DR ZACHARY Granados Attending Clinician DR ZACHARY Guerin Attending Clinician Lizeth Michelle Attending Clinician Unavailable Lizeth RAMON Attending Clinician Unavailable Bel PACLizeth Attending Clinician [phone] Ellie Tong LVN Attending Clinician [phone] YOEL CEBALLOS Attending Clinician Unavailable Zainab Echavarria NP Attending Clinician [phone] Yoel Ceballos MD Attending Clinician [phone] Doctor Unassigned, [place] Attending Clinician U DR ZACHARY Mckoy Admitting Clinician Lizeth Mihcelle Admitting Clinician Unavailable YOEL CEBALLOS Admitting Clinician Unavailable Yoel Ceballos MD Admitting Clinician [phone] Payers Payer Name Policy Type Policy Number Effective Date Expirati on Date Source 0111 [id number] 2024 00:00:00 [facility] T[facility] [id number] 2024 00:00:00 Problems Condition Name Condition Details Condition Category Status Onset Date Resolution Date Last Treatment Date Treating Clinician Comments Source Obesity (BMI 30-39.9) Obesity (BMI 30-39.9) Disease Active 2021-05 00:00: 00 [facility] [id number] Mood disorder Problem [facility] [id number] Plantar wart Problem [facility] Diverticul ar disease of colon Diverticul ar disease of large intestine without perforatio n or abscess Problem [facility] [id number] Diverticul itis Problem [facility] [id number] Type 2 diabetes mellitus with hyperglyce juan, without long-term current use of insulin Problem [facility] [id number] Essential hypertensi on Problem [facility] [id number] Adult ADHD Problem [facility] Vitamin B>12< deficiency anaemia Other vitamin B12 deficiency anemias Problem [facility] Iron deficiency anemia Other iron deficiency anemia Problem [facility] Chronic lymphoid leukemia, 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 Problem [facility] Allergies, Adverse Reactions, Alerts Allergy Name Allergy Type Status Severity Reaction(s) Onset Date Inactive Date Treating Clinician Comments Source [place] - Intraven ous Propensi ty to adverse reaction to drug Active 11-07 00:00: 00 Castillo Saleem NO KNOWN ALLERGIE S Drug Class Active [facility] No Known Drug Allergie s DA Active [facility] Social History Social Habit Start Date Stop Date Quantity Comments Source Sexual orientation [facility] Sex Assigned At [facility] History of Social function 2024-06-11 00:00:00 2024-06-11 00:00:00 [facility] Exposure to SARS-CoV-2 (event) 2022-01-24 00:00:00 2022-02-03 00:21:00 Not sure [facility] Tobacco use and exposure 2022-02-03 00:00:00 2022-02-03 00:00:00 Smokeless tobacco non-user [facility] History of Tobacco Use 2015-05-04 00:00:00 [facility] Smoking Status Start Date Stop Date Source Tobacco smoking consumption unknown [facility] Former Smoker 2024-11-26 00:00:00 2024-11-26 00:00:00 [facility] Smokes tobacco daily 2022-02-03 00:00:00 [facility] Medications Ordered Medication Name Filled Medication Name Start Date Stop Date Current Medication? Ordering Clinician Indication Dosage Frequency Signature (SIG) Comments Components Source Amphetamine -Dextroamph etamine 15 MG Amphetamine -Dextroamph etamine 15 MG 11-26 00:00: 00 No 1{table t} BID Salicylic Acid 26 % Salicylic Acid 26 % 07-14 00:00: 00 No 1{appli cation_ as_need ed} QD Salicylic Acid 26 % Lisinopril 10 MG Lisinopril 10 MG 07-14 00:00: 00 No 1{table t} QD Lisinopril 10 MG NaCl 0.9% (NS) bolus infusion 1,000 mL 06-12 03:45: 00 06-12 04:19 :00 No 1000mL at 999 mL/hr, 1,000 mL, IV Infusion, ONCE, 1 dose, On Fri06/11/24 at 2145, STAT [facility] iopamidol (ISOVUE 370-500 mL) injection 100 mL 06-12 03:00: 00 06-12 03:00 :00 No [id number] 100mL 100 mL, Intravenou s, ONCE, 1 dose, On Fri06/11/24 at 2100, Routine [facility] ondansetron (ZOFRAN (PF)) injection 4 mg 06-12 02:30: 00 06-12 02:20 :00 No 4mg 4 mg, Slow IV Push, ONCE, 1 dose, On Fri06/11/24 at 2030, 2 mL [facility] morpHINE (4 mg/mL) injection 4 mg 06-12 01:30: 00 06-12 02:21 :00 No 4mg 4 mg, Slow IV Push, ONCE, 1 dose, On Fri06/11/24 at 1930, STAT [facility] Cipro 500 mg tablet 2023-05 00:00: 00 Yes 1mg Castillo Saleem metronidazo le 500 mg tablet 2023-05 00:00: 00 Yes 1mg Castillo Alaina Saleem Tylenol Extra Strength 500 mg tablet 2023-05 00:00: 00 Yes 12mg Castillo Alaina Saleem TAKE 1 TABLET AT BEDTIME NEEDED. 05-12 00:00: 00 08-17 00:00 :00 No 50 Castillo Saleem TAKE 1 TABLET DAILY. 05-12 00:00: 00 08-17 00:00 :00 No 50 Castillo Saleem TAKE 1/2 TABLET AT BEDTIME. 2022-05 00:00: 00 08-17 00:00 :00 No 50 Castillo Saleem TAKE 1 TABLET DAILY. 2022-05 00:00: 00 08-17 00:00 :00 No 50 Castillo Saleem TAKE 1 TO 2 TABLETS AT BEDTIME 2022-05 00:00: 00 08-17 00:00 :00 No 25 Castillo Saleem TAKE 1 TABLET DAILY. 2022-05 00:00: 00 08-17 00:00 :00 No 25 Castillo Saleem APPLY SPARINGLY TO AFFECTED AREA(S) TWICE DAILY 08-26 00:00: 00 08-17 00:00 :00 No 2 Castillo Alaina Saleem TAKE 1 TABLET TWICE DAILY WITH FOOD. 08-26 00:00: 00 08-17 00:00 :00 No [id number] Castillo Alaina Saleem TAKE 1 TABLET DAILY DIRECTED. 08-19 00:00: 00 08-17 00:00 :00 No 500 Castillo Alaina Stiven piperacilli n-tazobacta m (ZOSYN) 3.375 g in NaCl 0.9% (NS) 50 mL MINI-BAG 2021-05 0 12:15: 00 02-08 20:14 :00 No 3.375g 3.375 g, IV Piggyback, Q8H ABX, 7 doses, First dose (after last reorder) on Fri02/06/22 at 0715, Last dose on Fri02/08/22 at 0715, Administer over 4 Hours, 50 mL
Reas on for Anti-Infec tive: Empiric Therapy for Suspected Infection< br>Empiric Therapy Site: Abdominal< br>Duratio n of therapy: 72 hours [facility] TAKE ONE (1) TABLET(S) BY MOUTH EVERY MORNING AND EVENING FOR 7 DAYS. 2021-05 00:00: 00 08-17 00:00 :00 No Castillo Foley Stiven acidophilus 100 million cell tablet 2021-05 00:00: 00 03-09 04:59 :00 No [id number] 1g Take 1 tablet by mouth in the morning and 1 tablet in the evening. Do all this for 30 days. [facility] amoxicillin -clavulanat e (AUGMENTIN) 875-125 mg per tablet 2021-05 00:00: 00 02-14 04:59 :00 No [id number] 1{tbl} Take 1 tablet by mouth in the morning and 1 tablet in the evening. Do all this for 7 days. [facility] iopamidol (ISOVUE 370-500 mL) injection 60 mL 2021-05 14:20: 00 02-05 14:21 :00 No [id number] 60mL 60 mL, Intravenou s, ONCE, 1 dose, On Fri02/05/22 at 0930, Routine [facility] enoxaparin (LOVENOX) injection 40 mg 2021-05 22:00: 00 Yes 40mg 40 mg, Subcutaneo us, DAILY, First dose on Fri02/03/22 at 1700, Until Discontinu ed, Routine [facility] piperacilli n-tazobacta m (ZOSYN) 3.375 [...] Abdominal< br>Duratio n of therapy: 72 hours [facility] acetaminoph en (TYLENOL) tablet 650 mg 2021-05 14:08: 38 Yes 650mg 650 mg, Oral, Q6HPRN, Starting on Fri02/03/22 at 0908, Until Discontinu ed, Routine, Pain (scale 4-6) [facility] NaCl 0.9% (NS) IV infusion 1,000 mL 2021-05 10:15: 00 Yes 1000mL at 100 mL/hr, IV Infusion, CONTINUOUS , Starting on Fri02/03/22 at 0515, Until Discontinu ed, Routine [facility] ondansetron (ZOFRAN (PF)) injection 4 mg 2021-05 10:13: 17 Yes 4mg 4 mg, Slow IV Push, Q6HPRN, Starting on Fri02/03/22 at 0513, Until Discontinu ed, Routine, Nausea and Vomiting (N/V) [facility] iopamidol (ISOVUE 370-500 mL) injection 100 mL 2021-05 08:30: 00 02-03 07:37 :00 No [id number] 100mL 100 mL, Intravenou s, ONCE, 1 dose, On Fri02/03/22 at 0330, Routine [facility] piperacilli n-tazobacta m (ZOSYN) 3.375 g in NaCl 0.9% (NS) 50 mL MINI-BAG 2021-05 08:15: 00 02-03 08:56 :00 No 3.375g 3.375 g, IV Piggyback, ONCE, 1 dose, On 02/03/22 at 0315, Administer over 30 Minutes, 50 mL
Reas on for Anti-Infec tive: Empiric Therapy for Suspected Infection< br>Empiric Therapy Site: Abdominal< br>Duratio n of therapy: 72 hours [facility] ketorolac (TORADOL) injection 30 mg 2021-05 0 06:45: 00 02-03 06:02 :00 No 30mg 30 mg, Slow IV Push, ONCE, 1 dose, On 02/03/22 at 0145, Routine [facility] Vitamin D2 1,250 mcg (50,000 unit) capsule 11-12 00:00: 00 Yes 1(50,00 0 unit) [facility] Saleem Vitamin D2 1,250 mcg (50,000 unit) capsule 11-11 00:00: 00 Yes 1(50,00 0 unit) Castillo Saleem Glimepiride 2 MG Glimepiride 2 MG No 1{table t_with_ breakfa st_or_t he_firs t_main_ meal_of _the_da y} QD Glimepirid e 2 MG Vital Signs Vital Name Observation Time Observation Value Comments S ource height 2024-11-26 09:00:00 70 [in_i] [facility] weight 2024-11-26 09:00:00 245.0 [lb_av] Co mmon [facility] temperature 2024-11-26 09:00:00 97.3 [degF] [facility] bmi 2024-11-26 09:00:00 35.15 kg/m2 [facility] oximetry 2024-11-26 09:00:00 97 % [facility] blood pressure systolic 2024-11-26 09:00:00 126 mm[Hg] [facility] blood pressure diastolic 2024-11-26 09:00:00 80 mm[Hg] [facility] height 2024-07-14 09:45:00 70 [in_i] [facility] weight 2024-07-14 09:45:00 242.6 [lb_av] Co m[facility] temperature 2024-07-14 09:45:00 98.1 [degF] Com mon [facility] bmi 2024-07-14 09:45:00 34.81 kg/m2 [facility] oximetry 2024-07-14 09:45:00 98 % [facility] respiratory rate 2024-07-14 09:45:00 16 /min [facility] blood pressure systolic 2024-07-14 09:45:00 138 mm[Hg] [facility] blood pressure diastolic 2024-07-14 09:45:00 82 mm[Hg] [facility] Weight 2024-06-26 23:00:00 106.8 KG Weight 2024-06-26 23:00:00 106.8 KG Weight 2024-06-26 23:00:00 106.8 KG Systolic blood pressure 2024-06-12 04:45:00 133 mm[Hg] [facility] Diastolic blood pressure 2024-06-12 04:45:00 92 mm[Hg] [facility] Heart rate 2024-06-12 04:45:00 74 /min [facility] Body temperature 2024-06-12 04:45:00 36.61 Jessica [facility] Respiratory rate 2024-06-12 04:45:00 20 /min [facility] Oxygen saturation in Arterial blood by Pulse oximetry 2024-06-12 04:45:00 99 /min [facility] Body height 2024-06-12 01:11:00 177.8 cm [facility] Body weight 2024-06-12 01:11:00 108.863 kg [facility] BMI 2024-06-12 01:11:00 34.44 kg/m2 [facility] Systolic blood pressure 2022-02-06 18:27:00 141 mm[Hg] [facility] Diastolic blood pressure 2022-02-06 18:27:00 92 mm[Hg] [facility] Heart rate 2022-02-06 18:27:00 68 /min [facility] Body temperature 2022-02-06 18:27:00 36.44 Jessica [facility] Respiratory rate 2022-02-06 18:27:00 16 /min [facility] Oxygen saturation in Arterial blood by Pulse oximetry 2022-02-06 18:27:00 100 /min [facility] Body weight 2022-02-06 08:06:00 99.111 kg [facility] BMI 2022-02-06 08:06:00 33.22 kg/m2 [facility] Body height 2022-02-03 09:45:00 172.7 cm [facility] BP Systolic 2024-02-09 10:19:00 146 mm[Hg] Step hen F Stiven BP Diastolic 2024-02-09 10:19:00 92 mm[Hg] Dereje phen F Stiven Weight Measured 2024-02-09 10:19:00 234.80 pounds Castilloxin Saleem Height Measured 2024-02-09 10:19:00 68.00 inches Castillo F Stiven Body Temperature 2024-02-09 10:19:00 98.20 degrees Castillo F Stiven Heart Rate 2024-02-09 10:19:00 82.00 /min Mirta en F Tsiven Respiratory Rate 2024-02-09 10:19:00 16.00 /min Castillo F Stiven BP Systolic 2023-05-12 16:03:00 153 mm[Hg] Step hen F Stiven BP Diastolic 2023-05-12 16:03:00 95 mm[Hg] Dereje phen F Stiven Weight Measured 2023-05-12 16:03:00 243.00 pounds Castillo Alaina Saleem Height Measured 2023-05-12 16:03:00 68.00 inches Castillo F Stiven Body Temperature 2023-05-12 16:03:00 97.70 degrees Castillo F Stiven Heart Rate 2023-05-12 16:03:00 90.00 /min Mirta en F Stiven Respiratory Rate 2023-05-12 16:03:00 18.00 /min Castillo F Stiven BP Systolic 2022-09-09 08:26:00 143 mm[Hg] Step hen F Stiven BP Diastolic 2022-09-09 08:26:00 88 mm[Hg] Dereje phen F Stiven Weight Measured 2022-09-09 08:26:00 229.40 pounds Castillo F Stiven Height Measured 2022-09-09 08:26:00 68.00 inches Castillo F Stiven Body Temperature 2022-09-09 08:26:00 98.20 degrees Castillo F Stiven Heart Rate 2022-09-09 08:26:00 78.00 /min Mirta en F Stiven Respiratory Rate 2022-09-09 08:26:00 19.00 /min Castillo F Stiven BP Systolic 2022-08-26 13:41:00 [...] Diastolic 2022-08-12 08:58:00 91 mm[Hg] Dereje phen Alaina Saleem Weight Measured 2022-08-12 08:58:00 232.20 pounds Castillo Saleem Height Measured 2022-08-12 08:58:00 68.00 inches Castillo Saleem Body Temperature 2022-08-12 08:58:00 98.70 degrees Castillo Saleem Heart Rate 2022-08-12 08:58:00 86.00 /min Mirta en Alaina Saleem Respiratory Rate 2022-08-12 08:58:00 18.00 /min Castillo Saleem BP Systolic 2021-11-07 11:28:00 132 mm[Hg] Dom hen Alaina Saleem BP Diastolic 2021-11-07 11:28:00 73 mm[Hg] Dereje phen Alaina Saleem Weight Measured 2021-11-07 11:28:00 228.20 pounds Castillo Saleem Height Measured 2021-11-07 11:28:00 68.00 inches Castillo Saleem Body Temperature 2021-11-07 11:28:00 98.00 degrees Castillo Saleem Heart Rate 2021-11-07 11:28:00 97.00 /min Mirta en Alaina Saleem Respiratory Rate 2021-11-07 11:28:00 17.00 /min Castillo Saleem Procedures Procedure Date / Time Performed Performing Clinicia n Source CT ABDOMEN PELVIS W CONTRAST 2024-06-12 02:14:50 Lizeth Ramon [facility] URINALYSIS 2024-06-12 01:59:00 Lizeth Ramon [facility] LIPASE 2024-06-12 01:58:00 Lizeth Ramon [facility] MAGNESIUM 2024-06-12 01:58:00 [facility] TROPONIN I 2024-06-12 01:58:00 [facility] COMP. METABOLIC PANEL ([id number]) 2024-06-12 01:58:00 Lizeth Ramon [facility] CBC WITH DIFF 2024-06-12 01:58:00 Lizeth Ramon [facility] BASIC METABOLIC PANEL (NA, K, CL, CO2, GLUCOSE, BUN, CREATININE, CA) 2022-02-06 09:21:00 Shellie Roldan [facility] CBC WITH DIFF 2022-02-06 09:21:00 Shellie Roldan Vannesa [facility] URINALYSIS 2022-02-05 21:57:00 Radha Clement [facility] CT ABDOMEN PELVIS W CONTRAST 2022-02-05 14:25:48 Lori Bansal [facility] BASIC METABOLIC PANEL (NA, K, CL, CO2, GLUCOSE, BUN, CREATININE, CA) 2022-02-05 09:04:00 Shellie Roldan [facility] CBC WITH DIFF 2022-02-05 09:04:00 Shellie Roldan [facility] BASIC METABOLIC PANEL (NA, K, CL, CO2, GLUCOSE, BUN, CREATININE, CA) 2022-02-04 07:48:00 Jory [facility] CBC WITH DIFF 2022-02-04 07:48:00 [facility] CT ABDOMEN PELVIS W CONTRAST 2022-02-03 07:36:00 Zainab Echavarria [facility] LIPASE 2022-02-03 05:55:00 Zainab Echavarria [facility] COMP. METABOLIC PANEL ([id number]) 2022-02-03 05:55:00 Zainab Echavarria [facility] CBC WITH DIFF 2022-02-03 05:55:00 Zainab Echavarria [facility] URINALYSIS 2022-02-03 05:55:00 Zainab Echavarria [facility] NOTICE OF PRIVACY PRACTICES 2022-02-03 05:18:05 Doctor Unassigned, [place] [facility] Encounters Start Date/Time End Date/Time Encounter Type Admission Type Attending Clinicians Care Facility Care Department Encounter ID Source 2024-07-14 09:23:01 Outpatient Elmer Graham [facility] [id number] [facility] 2024-11-26 00:00:00 2024-11-26 00:00:00 OFFICE VISIT ESTAB PT LEVEL 4 STLMLC STLMLC [id number] [facility] 2024-10-15 00:00:00 2024-10-15 00:00:00 OFFICE VISIT ESTAB PT LEVEL 4 STLMLC STLMLC [id number] [facility] 2024-09-14 00:00:00 2024-09-14 00:00:00 OFFICE VISIT ESTAB PT LEVEL 4 STLMLC STLMLC [id number] [facility] 2024-09-09 00:00:00 2024-09-09 00:00:00 (TEL) STLMLC STLMLC [id number] [facility] 2024-07-14 00:00:00 2024-07-14 00:00:00 OFFICE VISIT ESTAB PT LEVEL 4 STLMLC STLMLC [id number] [facility] 2024-06-26 22:58:00 2024-06-27 01:23:00 Outpatient OMCDOCS OMCDOCS [id number] [facility] 2024-06-26 22:58:00 2024-06-27 01:23:00 Emergency E ZACHARY HOLT, [facility] [id number] [facility] 2024-06-26 22:58:00 2024-06-27 01:23:00 Emergency E ZACHARY HOLT [facility] [id number] [facility] 2024-06-11 19:11:00 2024-06-11 22:51:00 Emergency X Lizeth RAMON K [facility] ERT [id number] [facility] 2024-06-11 19:11:00 2024-06-11 22:51:00 Emergency Lizeth Ramon [facility] [id number] [facility] 2024-02-19 10:09:08 2024-02-19 10:09:08 Outpatient SFA SFA [id number] Castillo Saleem 2024-02-09 10:13:25 2024-02-09 10:13:25 Outpatient SFA SFA [id number] Castillo Saleem 2024-02-09 00:00:00 2024-02-09 00:00:00 Outpatient Visit SFA [id number] Castillo Saleem 2024-02-06 16:43:26 2024-02-06 16:43:26 Outpatient SFA SFA [id number] Castillo Saleem 2023-05-27 11:11:01 2023-05-27 11:11:01 Outpatient SFA SFA [id number] Castillo Saleem 2023-04-16 09:59:08 2023-04-16 09:59:08 Outpatient SFA SFA [id number] Castillo Saleem 2023-03-25 16:22:46 2023-03-25 16:22:46 Outpatient SFA SFA [id number] Castillo Saleem 2022-09-18 09:13:49 2022-09-18 09:13:49 Outpatient SFA SFA [id number] Castillo Saleem 2022-09-09 08:13:12 2022-09-09 08:13:12 Outpatient SFA SFA [id number] Castillo Saleem 2022-08-19 09:34:13 2022-08-19 09:34:13 Outpatient SFA SFA [id number] Castillo Saleem 2022-08-12 08:47:37 2022-08-12 08:47:37 Outpatient SFA SFA [id number] Castillo Saleem 2022-02-07 00:00:00 2022-02-07 00:00:00 Transition of Care Ellie Tong [id number] [facility] 2022-02-03 00:25:00 2022-02-06 16:35:00 Inpatient X YOEL CEBALLOS [facility] [id number] [facility] 2022-02-03 00:25:00 2022-02-06 16:35:00 Hospital Encounter Zainab Echavarria [facility] [id number] [facility] 2019-12-22 00:00:00 2019-12-22 00:00:00 Patient Secure Msg Doctor Unassigned, [place] [facility] [id number] [facility] Results Test Description Test Time Test Comments Results Result Co mments Source LIPASE [id number] 23:54:00* Test Item Value Reference Range Interpretation Comme nts LIPASE (test code = 60A) 35 IU/L 12-53 COMPREHENSIVE METABOLIC [id number] 23:54:00* Test Item Value Reference Range Interpretation Comme nts GLUCOSE (test code = 06D) 96 mg/dL 75-100 SODIUM (test code = 01A) 140 mmol/L 136-145 POTASSIUM (test code = 01B) 3.8 mmol/L 3.6-5.1 CHLORIDE (test code = 04A) 107 mmol/L 98-107 CO2 (test code = 02A) 24 mmol/L 20-31 ANION GAP (test code = ANG) 12.8 mmol/L BUN (test code = 05D) 17 mg/dL 9-23 CREATININE (test code = 03E) 0.9 mg/dL 0.7-1.3 GFR (test code = GFR) 109 mL/min/1.73m\\S\\2 >=90 EGFR (test code = EGFR) eGFR BY CKD-EPI CALCULATION IS NOT RECOMMENDED FOR PATIENTS UNDER 18 YEARS OF AGE. BUN/CREA (test code = BCR) 19 12-20 CALCIUM (test code = 09D) 9.9 mg/dL 8.3-10.6 BILI TOTAL (test code = 11A) 0.6 mg/dL 0.2-1.0 PROTEIN (test code = 07D) 8.2 g/dL 5.7-8.2 ALBUMIN (test code = 08D) 5.1 g/dL 3.2-4.8 H GLOBULIN (test code = GLB) 3.1 g/dL 1.5-3.8 ALB/GLOB (test code = AGRR) 1.6 1.0-2.6 ALK PHOS (test code = 35A) 175 IU/L 46-116 H AST (test code = 30A) 28 IU/L <=33 ALT (test code = 31A) 60 IU/L 10-49 H [id number] 23:54:00* Test Item Value Reference Range Interpretation Comme nts AMYLASE (test code = 10A) 103 U/L 30-118 CBC (INCLUDES AUTOMATED DIFFERENTIAL)2024-06-26 23:42:00* Test Item Value Reference Range Interpretation Comme nts WBC (test code = WBC) 8.6 10\\S\\3/uL 4.5-11.0 RBC (test code = RBC) 5.48 10\\S\\6/uL 4.30-5.70 HGB (test code = HBG) 16.5 g/dL 14.0-18.0 HCT (test code = HCT) 49.2 % 35.0-46.0 H MCV (test code = MCV) 89.8 fL 80.0-94.0 MCH (test code = MCH) 30.1 pg 27.0-31.0 MCHC (test code = MCHC) 33.5 g/dL 32.0-36.0 RDW (test code = RDW) 12.0 % 11.5-14.5 PLT (test code = PLT) 278 10\\S\\3/uL 130-400 MPV (test code = MPV) 11.5 fL 9.4-12.4 NEUTROP # (test code = NE#) 5.3 10\\S\\3/uL 2.0-8.0 LYMPH # (test code = LY#) 2.3 10\\S\\3/uL 1.2-4.0 MONOCYTE # (test code = MO#) 0.8 10\\S\\3/uL 0.0-1.1 EOSINOPH # (test code = EO#) 0.1 10\\S\\3/uL 0.0-0.7 BASOPHIL # (test code = BA#) 0.0 10\\S\\3/uL 0.0-0.3 IG # (test code = IG#) 0.02 10\\S\\3/uL 0.00-0.06 NRBC # (test code = NRBC#) 0.00 10\\S\\3/uL 0.00-0.01 NEUTROPH % (test code = NE%) 61.8 % 35.0-73.0 LYMPH % (test code = LY%) 26.6 % 20.0-55.0 MONO % (test code = MO%) 9.6 % 2.5-10.0 EOSINOPH % (test code = EO%) 1.3 % 0.0-5.0 BASOPHIL % (test code = BA%) 0.5 % 0.0-2.0 IG % (test code = IG%) 0.2 % 0.0-0.8 NRBC% (test code = NRBC%) 0.0 % 0.0-0.2 MANDIFF (test code = MDIFF) NO NO RBC MORPH (test code = RBCMOR) NORMAL [id number] 23:42:00* Test Item Value Reference Range Interpretation Comme nts COLOR (test code = COLU) YELLOW YELLOW CLARITY (test code = CLA) CLEAR CLEAR GLUCOSE UR (test code = UA GLUCOSE) NEGATIVE NEGATIVE BILI UR (test code = BILE) NEGATIVE NEGATIVE KETONES UR (test code = MICHELE) NEGATIVE NEGATIVE SP GRAVITY (test code = SPGR) 1.016 1.005-1.030 PH UR (test code = PH) 5.5 4.5-8.0 PROTEIN UR (test code = PU) NEGATIVE NEGATIVE UROBIL UR (test code = UROQ) 0.2 EU/dL 0.2-1.0 NITRITE UR (test code = NITRITE) NEGATIVE NEGATIVE BLOOD UR (test code = UA BLOOD) NEGATIVE NEGATIVE LEUK ES UR (test code = LEUK) NEGATIVE NEGATIVE CT Abdomen pelvis w [id number] 02:19:01EXAM: CT ABDOMEN PELVIS W CONTRAST ORDERING PROVIDER: Lizeth RAMON HISTORY: 43 years-old Male; Ordered Indication: Abdominal abscess/infectionsuspected . TECHNIQUE: Contiguous axial imaging from the level of the lung basesthrough the proximal thighs was performed with intravenous contrast.[place] sagittal reconstructions were obtained. COMPARISON: CT abdomen pelvis obtained on 02/05/2022 FINDINGS: LOWER THORAX: The lung bases are clear. LIVER: No suspicious lesion is seen. GALLBLADDER AND BILIARY TREE: The gallbladder appears unremarkable. Nobiliary ductal dilatation is visualized. SPLEEN: The spleen is normal in size. PANCREAS: No ductal dilation or solid mass is visualized. ADRENAL GLANDS: No mass is seen. KIDNEYS/URETER/BLADDER: No hydronephrosis or suspicious lesion is seen.Bilateral nonobstructing stones are again seen and measure up to 3 mm onthe right and 2 mm on the left. The urinary bladder is unremarkable. PELVIC ORGANS: No suspicious pelvic mass is seen. GI TRACT: Subtle inflammatory changes originate from a sigmoid diverticulumon series 2 image 128. Colonic diverticula are also present elsewhere. Theappendix is unremarkable. ?No obstruction is seen. PERITONEUM ANDRETROPERITONEUM: No intra-abdominal free air or fluidcollection is visualized. LYMPH NODES: No suspicious lymphadenopathy is seen. VESSELS: The vessels are patent. BONES AND SOFT TISSUES: No suspicious osseous lesion is seen. Scatteredsclerotic foci within the pelvis and hips are unchanged from 2021 andlikely represent bone islands. Mild spondylotic changes are present.[facility] PLATELETS 2024-02-10 12:16:09* Test Item Value Reference Range Interpretation Comme nts WBC (test code = 1001) 5.7 K/UL 3.5-11.0 RBC (test code = 1002) 4.69 M/UL 4.50-6.10 HEMOGLOBIN (test code = 1003) 14.5 G/DL 13.5-17.0 HEMATOCRIT (test code = 1004) 44.4 % 40.0-51.0 MCV (test code = 1005) 94.7 fL 80.0-99.0 MCH (test code = 1006) 30.9 PG 25.0-33.0 MCHC (test code = 1007) 32.7 G/DL 31.0-36.0 RDW (test code = 1038) 12.5 % 11.5-15.0 NEUTROPHILS (test code = 1008) 59.5 % LYMPHOCYTES (test code = 1010) 29.0 % MONOCYTES (test code = 1011) 9.2 % EOSINOPHILS (test code = 1012) 1.6 % BASOPHILS (test code = 1013) 0.5 % IMMATURE GRANULOCYTES (test code = 1036) 0.2 % NUCLEATED RBCS (test code = 1065) 0.0 /100 WBC'S See_Comment [Automated [facility]] The system which generated this result transmitted reference range: 0.0. The reference range was not used to interpret this result as normal/abnormal. PLATELET COUNT (test code = 1015) 124 K/UL 130-400 L ABSOLUTE NEUTROPHILS (test code = 1066) 3.36 K/UL 1.50-7.50 ABSOLUTE LYMPHOCYTES (test code = 1067) 1.64 K/UL 1.00-4.00 ABSOLUTE MONOCYTES (test code = 1068) 0.52 K/UL 0.20-1.00 ABSOLUTE EOSINOPHILS (test code = 1040) 0.09 K/UL 0.00-0.50 ABSOLUTE BASOPHILS (test code = 1069) 0.03 K/UL 0.00-0.20 ABS IMMATURE GRANULOCYTES (test code = 1020) 0.01 K/UL 0.00-0.10 ABS NUCLEATED RBCS (test code = 59109) 0.00 K/UL 0.00-0.11 COMPREHENSIVE METABOLIC [id number] 06:54:38* Test Item Value Reference Range Interpretation Comme nts GLUCOSE (test code = 2217) 92 MG/DL 70-99 BUN (test code = 220) 18 MG/DL 6-20 CREATININE (test code = 2214) 0.93 MG/DL 0.80-1.40 eGFR (2020 CKD-EPI) (test code = 71899) 105 ML/MIN/1.73 >60 CALC BUN/CREAT (test code = 2235) 19 RATIO 6-28 SODIUM (test code = 2231) 142 MEQ/L 133-146 POTASSIUM (test code = 2228) 4.5 MEQ/L 3.5-5.4 CHLORIDE (test code = 2215) 104 MEQ/L 95-107 CARBON DIOXIDE (test code = 2206) 23 MEQ/L 19-31 CALCIUM (test code = 2209) 9.7 MG/DL 8.5-10.5 PROTEIN, TOTAL (test code = 222) 7.8 G/DL 6.1-8.3 ALBUMIN (test code = 220) 4.8 G/DL 3.5-5.2 CALC GLOBULIN (test code = 2240) 3.0 G/DL 1.9-3.7 CALC A/G RATIO (test code = 2234) 1.6 RATIO 1.0-2.6 BILIRUBIN, TOTAL (test code = 2207) 0.6 MG/DL <=1.2 ALKALINE PHOSPHATASE (test code = 2204) 150 U/L 40-119 H AST (test code = 2218) 31 U/L 9-50 ALT (test code = 2219) 61 U/L 5-50 H UNLESS OTHERWISE INDICATED, ALL TESTING PERFORMED AT [facility] [address] [place] [address] RADIO EQUIPMENT INSTALLER: JEANNIE HAYDEN M.D. CLIA NUMBER [id number] [place]. [id number] CULTURE, [id number] 10:26:47SPECIMEN NUMBER: [id number] CULTURE, URINE SPECIMEN NUMBER: [id number] SPECIMEN COMMENT: URINE SOURCE: URINE REPORT STATUS: FINAL FINAL REPORT: 09/11/2022 NO GROWTH AFTER 36 HOURS INCUBATIONCULTURE, URINE 2022-09-11 00:00:00* Test Item Value Reference Range Interpretation Comme nts CULTURE, URINE (test code = 62153) SPECIMEN NUMBER: [id number] Castillo Foley AustinCT/NG, NAAT, [id number] 16:05:23* Test Item Value Reference Range Interpretation Comme nts CHLAMYDIA, NAAT, URINE (test code = 46192) NEGATIVE NEGATIVE Assay methodolog y is nucleic acid amplification by transcriptionmediated amplification (TMA) utilizing the Aptima Combo 2 Assay. A negative result does not exclude low level infection, specimensampling error, or collection error. GONORRHEA, NAAT, URINE (test code = 89491) NEGATIVE NEGATIVE Assay methodolog y is nucleic acid amplification by transcriptionmediated amplification (TMA) utilizing the Aptima Combo 2 Assay. A negative result does not exclude low level infection, specimensampling error, or collection error. UNLESS OTHERWISE INDICATED, ALL TESTING PERFORMED AT [facility] [address] [place] [address] RADIO EQUIPMENT INSTALLER: JEANNIE HAYDEN M.D. CLIA NUMBER [id number] [place]. [id number] HIV 1/2 4TH GEN, RFLX [id number] 04:08:09* Test Item Value Reference Range Interpretation Comme nts HIV 1/2 4TH GEN, RFLX CONF ( test code = 3514) NON-REACTIVE NON-REACTIVE PSA, [id number] 04:07:46* Test Item Value Reference Range Interpretation Comme nts PSA, TOTAL (test code = 2606) 1.17 NG/ML See_Comment NOTE: Methodolog y is Nataly Pina Electrochemiluminescence Immunoassay traceable to WHO reference standard 96/760. [Automated message] The system which generated this result transmitted reference range: <=4.00. The reference range was not used to interpret this result as normal/abnormal. HIV 1/2 4TH GEN, RFLX [id number] 00:00:00* Test Item Value Reference Range Interpretation Comme nts HIV 1/2 4TH GEN, RFLX CONF ( test code = 3514) NON-REACTIVE Castillo SaleemPSA, [id number] 00:00:00* Test Item Value Reference Range Interpretation Comme nts PSA, TOTAL (test code = 2606) 1.17 NG/ML Castillo Foley AustinCT/NG, TMA, [id number] 00:00:00* Test Item Value Reference Range Interpretation Comme nts CHLAMYDIA, NAAT, URINE (test code = 16903) NEGATIVE GONORRHEA, NAAT, URINE (test code = 87486) NEGATIVE Castillo SaleemVITAMIN D, 25 [id number] 07:11:13* Test Item Value Reference Range Interpretation [...] . . . . NG/ML 30-100 LIPID [id number] 03:35:18* Test Item Value Reference Range Interpretation [...] SPECIMENS. FOR MOREINFORMATION, SEE CLIENT ANNOUNCEMENT AT [email or web address] RISK RATIO LDL/HDL (test code = 2238) 1.68 RATIO <3.55 COMPREHENSIVE METABOLIC [id number] 03:35:18* Test Item Value Reference Range Interpretation Comme nts GLUCOSE (test code = 2217) 100 MG/DL 70-99 H BUN (test code = 2207) 17 MG/DL 6-20 CREATININE (test code = 2214) 0.83 MG/DL 0.80-1.40 eGFR (2020 CKD-EPI) (test code = 49564) 113 ML/MIN/1.73 >60 CALC BUN/CREAT (test code = 2235) 20 RATIO 6-28 SODIUM (test code = 2231) 140 MEQ/L 133-146 POTASSIUM (test code = 2228) 4.4 MEQ/L 3.5-5.4 CHLORIDE (test code = 2215) 103 MEQ/L 95-107 CARBON DIOXIDE (test code = 2206) 23 MEQ/L 19-31 CALCIUM (test code = 2209) 10.0 MG/DL 8.5-10.5 PROTEIN, TOTAL (test code = 2229) 7.3 G/DL 6.1-8.3 ALBUMIN (test code = 2201) 4.7 G/DL 3.5-5.2 CALC GLOBULIN (test code = 2240) 2.6 G/DL 1.9-3.7 CALC A/G RATIO (test code = 2234) 1.8 RATIO 1.0-2.6 BILIRUBIN, TOTAL (test code = 2207) 0.3 MG/DL See_Comment [Automated me ssage] The system which generated this result transmitted reference range: <=1.2. The reference range was not used to interpret this result as normal/abnormal. ALKALINE PHOSPHATASE (test code = 2204) 129 U/L 40-117 H AST (test code = 2218) 19 U/L 9-50 ALT (test code = 2219) 39 U/L 5-50 HEMOGLOBIN [id number] 03:02:02* Test Item Value Reference Range Interpretation Comme nts HEMOGLOBIN A1c (test code = 11303) 6.0 % 4.2-5.6 H CITIZEN OF [employer] GUIDELINES FOR HGB A1C: [...] OR LABORATORY CONSULTATION. CBC W/AUTO DIFF WITH [id number] 02:37:49* Test Item Value Reference Range Interpretation [...] H ABS NUCLEATED RBCS (test code = 05102) 0.00 K/UL 0.00-0.11 [facility] has important pathology staff changes effective 07/03/2022. New pathology staff will provide uninterrupted, excellent patient care and clinical consultation. See URL: [email or web address]. UNLESS OTHERWISE INDICATED, ALL TESTING PERFORMED AT [facility] [address] [place] [address] RADIO EQUIPMENT INSTALLER: JAENNIE AHYDEN M.D. CLIA NUMBER [id number] [facility] [place]. [id number] VITAMIN D, 25 [id number] 00:00:00* Test Item Value Reference Range Interpretation Comme [facility] VITAMIN D, 25 OH (test code = 4958) 17 NG/ML Castillo SaleemHEMOGLOBIN [id number] 00:00:00* Test Item Value Reference Range Interpretation Comme nts HEMOGLOBIN A1c (test code = 32423) 6.0 % Castillo Foley HamburgLIPID [id number] 00:00:00* Test Item Value Reference Range Interpretation Comme nts CHOLESTEROL (test code = 2210) 222 MG/DL TRIGLYCERIDES (test code = 2232) 43 MG/DL HDL CHOLESTEROL (test code = 2220) 78 MG/DL CALC LDL CHOL (test code = 2237) 131 MG/DL RISK RATIO LDL/HDL (test cod e = 2238) 1.68 RATIO Castilloxin SaleemCOMPREHENSIVE METABOLIC [id number] 00:00:00* Test Item Value Reference Range Interpretation Comme nts GLUCOSE (test code = 2217) 100 MG/DL BUN (test code = 2208) 17 MG/DL CREATININE (test code = 2214) 0.83 MG/DL eGFR (2020 CKD-EPI) (test code = 98637) 113 ML/MIN/1.73 CALC BUN/CREAT (test code = [...] ALT (test code = 2219) 39 U/L Castillo SaleemCBC W/AUTO [id number] 00:00:00* Test Item Value Reference Range Interpretation [...] ABS NUCLEATED RBCS (test cod e = 92732) 0.00 K/UL Castillo SaleemCOMP. METABOLIC PANEL (22246)2022-02-03 06:27:45* Test Item Value Reference Range Interpretation Comme nts NA (test code = 4626857217) 142 mmol/L 135-145 K (test code = 7225111935) 4.2 mmol/L 3.5-5 CL (test code = 5153557092) 105 mmol/L 98-108 CO2 TOTAL (test code = 2806349375) 26 mmol/L 23-31 AGAP (test code = 0353337576) 2-16 BUN (test code = 2470108753) 16 mg/dL 7-23 GLUCOSE (test code = 6548281115) 97 mg/dL 70-110 CREATININE (test code = 6912398135) 0.94 mg/dL 0.6-1.25 TOTAL BILI (test code = 5325972753) 0.8 mg/dL 0.1-1.1 CALCIUM (test code = 7016901096) 10.0 mg/dL 8.6-10.6 T PROTEIN (test code = 9617113824) 8.0 g/dL 6.3-8.2 ALBUMIN (test code = 6126095896) 4.9 g/dL 3.5-5 ALK PHOS (test code = 9675852289) 151 U/L 34-122 H ALTv (test code = 1742-6) 84 U/L 5-50 H AST(SGOT) (test code = 3615064786) 42 U/L 13-40 H eGFR (test code = 3818356593) mL/min/1.73m2 TOM (test code = TOM) Association [...] imaging tests). Lab Interpretation (test code = 40470-9) Abnormal [facility] 06:27:45* Test Item Value Reference Range Interpretation Comme nts LIPASE (test code = 5088319615) 84 U/L 0-220 Lab Interpretation (test cod e = 60757-9) Normal [facility] WITH [id number] 06:04:42* Test Item Value Reference Range Interpretation Comme nts WBC (test code = 6690-2) See_Comment [Automated [employer]] The system which generated this result transmitted reference range: 4.20 - 10.70 10*3/?L. The reference range was not used to interpret this result as normal/abnormal. RBC (test code = 789-8) See_Comment [Automated [employer]] The system which generated this result transmitted [...] 34.8 g/dL 31.2-35 RDW-SD (test code = 18088-4) 38.8 fL 38.5-51.6 RDW-CV (test code = 788-0) 11.7 % 12.1-15.4 L PLT (test code = 777-3) See_Comment [Automated messa ge] The system which generated this result transmitted reference range: 150 - 328 10*3/?L. The reference range was not used to interpret this result as normal/abnormal. MPV (test code = 02461-6) 11.8 fL 9.8-13 NRBC/100 WBC (test code = 2361431366) See_Comment [Automated [employer] ssage] The system which generated this result transmitted reference range: 0.0 - 10.0 /100 WBCs. The reference range was not used to interpret this result as normal/abnormal. NRBC x10^3 (test code = 3058610708) See_Comment [Automated messa ge] The system which generated this result transmitted reference range: 10*3/?L. The reference range was not used to interpret this result as normal/abnormal. GRAN MAT (NEUT) % (test code = 770-8) 69.7 % IMM GRAN % (test code = 2145398751) 0.40 % LYMPH % (test code = 736-9) 20.9 % MONO % (test code = 5905-5) 7.8 % EOS % (test code = 713-8) 0.7 % BASO % (test code = 706-2) 0.5 % GRAN MAT x10^3(ANC) (test code = 6377298301) 6.91 10*3/uL 1.99-6.95 IMM GRAN x10^3 (test code = 4261879793) 0.04 10*3/uL 0-0.06 LYMPH x10^3 (test code = 731-0) 2.07 10*3/uL 1.09-3.23 MONO x10^3 (test code = 742-7) 0.77 10*3/uL 0.36-1.02 EOS x10^3 (test code = 711-2) 0.07 10*3/uL 0.06-0.53 BASO x10^3 (test code = 704-7) 0.05 10*3/uL 0.01-0.09 Lab Interpretation (test code = 35011-1) Abnormal [facility], 25 [id number] 06:41:19* Test Item Value Reference Range Interpretation [...] . . . . NG/ML 30-100 HEMOGLOBIN [id number] 06:13:33* Test Item Value Reference Range Interpretation Comme [facility] HEMOGLOBIN A1c (test code = 90446) 5.7 % 4.2-5.6 H TSH, THIRD [id number] 06:00:05* Test Item Value Reference Range Interpretation Comme nts TSH, THIRD GENERATION (test code = 2821) 1.470 UIU/ML 0.400-4.100 [id number] 05:59:24* Test Item Value Reference Range Interpretation Comme nts TESTOSTERONE (test code = 2830) 536 NG/DL 300-1080 UNLESS OTHERWISE INDICATED, ALL TESTING PERFORMED [facility] [address] [place] [address] RADIO EQUIPMENT INSTALLER: ONIEL WOODSON M.D. CLIA NUMBER [id number] [facility] [place]. [id number] CBC W/AUTO DIFF WITH [id number] 05:32:39* Test Item Value Reference Range Interpretation [...] 0.00-0.10 ABS NUCLEATED RBCS (test code = 91165) 0.00 K/UL 0.00-0.11 COMPREHENSIVE METABOLIC [id number] 03:36:54* Test Item Value Reference Range Interpretation Comme nts GLUCOSE (test code = 2216) 88 MG/DL 70-99 BUN (test code = 2207) 10 MG/DL 6-20 CREATININE (test code = 2213) 0.88 MG/DL 0.80-1.40 eGFR (2020 CKD-EPI) (test code = 11348) 112 ML/MIN/1.73 >60 CALC BUN/CREAT (test code = 2234) 11 RATIO 6-28 SODIUM (test code = 2230) 141 MEQ/L 133-146 POTASSIUM (test code = 2227) 4.3 MEQ/L 3.5-5.4 CHLORIDE (test code = 2214) 103 MEQ/L 95-107 CARBON DIOXIDE (test code = 2205) 25 MEQ/L 19-31 CALCIUM (test code = 2208) 9.8 MG/DL 8.5-10.5 PROTEIN, TOTAL (test code = 2228) 7.3 G/DL 6.1-8.3 ALBUMIN (test code = 2200) 4.3 G/DL 3.5-5.2 CALC GLOBULIN (test code = 2239) 3.0 G/DL 1.9-3.7 CALC A/G RATIO (test code = 2233) 1.4 RATIO 1.0-2.6 BILIRUBIN, TOTAL (test code = 2206) 0.6 MG/DL See_Comment [Automated me ssage] The system which generated this result transmitted reference range: <=1.2. The reference range was not used to interpret this result as normal/abnormal. ALKALINE PHOSPHATASE (test code = 2203) 125 U/L 40-117 H AST (test code = 2217) 26 U/L 9-50 ALT (test code = 2219) 44 U/L 5-50 LIPID [id number] 03:36:54* Test Item Value Reference Range Interpretation Comme nts CHOLESTEROL (test code = 2210) 226 MG/DL <200 H TRIGLYCERIDES (test code = 2232) 105 MG/DL <150 HDL CHOLESTEROL (test code = 2220) 60 MG/DL >39 CALC LDL CHOL (test code = 2236) 144 MG/DL <100 H NOTE: CALCULATED LDL IS BASED ON MEHDI-ALLEN METHOD WHICHINCLUDES ADJUSTABLE TRIGLYCERIDE:VLDL CHOLESTEROL RATIO.THIS FACTOR VARIES BY MEASURED TRIGLYCERIDE AND NON-HDLCHOLESTEROL CONCENTRATIONS WITH INCREASED CALCULATED LDL SEENIN HIGHER TRIGLYCERIDE OR LOWER NON-HDL SPECIMENS. FOR MOREINFORMATION, SEE CLIENT ANNOUNCEMENT AT [email or web address] RISK RATIO LDL/HDL (test code = 2238) 2.40 RATIO <3.55 HEMOGLOBIN [id number] 00:00:00* Test Item Value Reference Range Interpretation Comme nts HEMOGLOBIN A1c (test code = 82508) 5.7 % Castillo SaleemCBC W/AUTO [id number] 00:00:00* Test Item Value Reference Range Interpretation [...] ABS NUCLEATED RBCS (test cod e = 48737) 0.00 K/UL Castillo Foley StivenCOMPREHENSIVE METABOLIC [id number] 00:00:00* Test Item Value Reference Range Interpretation Comme nts GLUCOSE (test code = 2217) 88 MG/DL BUN (test code = 2208) 10 MG/DL CREATININE (test code = 2214) 0.88 MG/DL eGFR (2020 CKD-EPI) (test code = 05988) 112 ML/MIN/1.73 CALC BUN/CREAT (test code = [...] code = 2219) 44 U/L Castillo SaleemLIPID [id number] 00:00:00* Test Item Value Reference Range Interpretation Comme nts CHOLESTEROL (test code = 2210) 226 MG/DL TRIGLYCERIDES (test code = 2232) 105 MG/DL HDL CHOLESTEROL (test code = 2220) 60 MG/DL CALC LDL CHOL (test code = 2237) 144 MG/DL RISK RATIO LDL/HDL (test cod e = 2238) 2.40 RATIO Castillo [id number] 00:00:00* Test Item Value Reference Range Interpretation Comme nts TSH, THIRD GENERATION (test code = 2821) 1.470 UIU/ML Castillo SaleemVITAMIN D, 25 [id number] 00:00:00* Test Item Value Reference Range Interpretation Comme nts VITAMIN D, 25 OH (test code = 4958) 15 NG/ML Castillo [id number] 00:00:00* Test Item Value Reference Range Interpretation Comme nts TESTOSTERONE (test code = 2830) 536 NG/DL Castillo Alaina Stiven Notes Date/Time Note Provider Source 2024-06-11 22:51:02 Pt given printed and verbal discharge instructions regarding diverticulitis and abdominal pain, encouraged hydration, 0 Prescriptions provided Pt verbalized understanding of instructions, pt awake alert oriented, resp reg unlabored, skin w/d, color appropriate for race, moves all ext well,pt encouraged to follow up with pcp. Advised to seek medical attention for new/prolonged/worsening of symptoms, Symptoms improved. No adverse reaction to meds given in ER noted upon discharge PIV d'cd, dressing to site, catheter in tact. Awake, alert oriented, resp reg unlabored, skin w/d, pt leaving amb with steady gait, in no apparent distress, TON Puentes RN [facility] 2024-06-11 19:09:15 Pt states he has been seen here for the same complaint and discharged 2 days, pt states that he has lower abd pain, with nausea and diarrhea. TON Tripp RN [facility]"
[2024-12-30] MEDS ORDERED: NA CHLORIDE 0.9% 1,000 ML ONE (00:29)
[2024-12-30] MEDS ORDERED: ONDANSETRON 4 MG/2 ML VIAL ONE (00:29)
[2024-12-30] MEDS ORDERED: MORPHINE 4 MG/ML SYR ONE (00:29)
[2024-12-30 01:01] LABS: Urine Microscopic Reflex YN NO UMIC
[2024-12-30 01:15] LABS: Absolute Lymphocytes (CBC) 2.0 K/uL (0.7-4.9); Hematocrit 49.5 % (39.6-49.0); Hemoglobin 16.7 g/dL (13.6-17.9); MCH 31.3 pg (27.0-35.0); MCHC 33.7 g/dL (32.0-36.0); MCV 92.9 fL (80-100); MPV 10.8 fL (7.6-11.3); Nucleated RBC Absolute Count 0.0 (0-0); Nucleated Red Blood Cells % 0.1 % (0-0); RBC Red Blood Cell Count 5.33 M/uL (4.33-5.43); White Blood Count 8.40 thou/uL (4.3-10.9)
[2024-12-30 01:26] LABS: ALT/SGPT 79.0 U/L (16-61); AST/SGOT 31.0 U/L (15-37); Albumin 4.3 g/dL (3.4-5.0); Albumin/Globulin Ratio 1.2 (1.1-1.8); Alkaline Phosphatase 152.0 U/L (45-117); Anion Gap 7.7 mEq/L (5.0-15.0); BUN Blood Urea Nitrogen 12.0 mg/dL (7-18); Globulin 3.6 g/dL (2.3-3.5); Glucose Level 83.0 mg/dL (74-106); Lipase 24.0 U/L (13-75); Potassium 3.7 mEq/L (3.5-5.1)
[2024-12-30] MEDS ORDERED: KETOROLAC 30 MG/ML INJ ONE (03:17)
[2024-12-30] MEDS ORDERED: CEFTRIAXONE 1000 MG/VIAL ONE (03:17)
--- NOTE | 2024-12-30 03:38 | RAD REPORT ---
EXAM DESCRIPTION: CT ABDOMEN PELVIS WITH IV CONTRAST 12/30/2024 2:33 AM CDT CLINICAL HISTORY: 44 years, Male, Abdominal pain. COMPARISON: CT Chest Abdomen Pelvis 07/05/2024. PROCEDURE: Contrast-enhanced images of the abdomen and pelvis were performed from the lung bases to the ischial tuberosities after the administration of IV contrast. In addition multiplanar reformats in the coronal and sagittal plane were obtained and reviewed. An individualized dose optimization technique, Automated Exposure Control, was utilized for the perfo rmed procedure. FINDINGS: Lung bases: The lung bases demonstrate to be clear. Liver: The liver demonstrated presence of decreased attenuation corresponding to fatty infiltration. Gallbladder: The gallbladder demonstrate to be normal. Adrenal glands: The adrenal glands demonstrate to be normal. Pancreas: The pancreas demonstrate to be normal. Spleen: The spleen demonstrate to be within normal limits. Kidneys: The kidneys demonstrate normal uptake of contrast media. There there are bilateral nephrol ithiasis. Right side largest one measuring 2.5 mm on image 34, largest one lower pole left kidney measuring 1.8 mm on image 43. There is no evidence for hydronephrosis and/or hydroureter GI: Grossly the unopacified stomach and small bowel bowel demonstrate to be within normal limits. No evidence for bowel dilatation and/or free air. The appendix is normal. The left-sided colon/sigmoid colon demonstrates presence of minimal diverticulosis. Suboptimal distention mid sigmoid colon limits the assessment. Questionable minimal mucosal thickening on axial image 72-74 and coronal image 51-53 could correspond to very minimal early diverticulitis. : The urinary bladder demonstrate to be partially distended with no gross abnormalities. Genitalia: The prostate gland is normal. Abdominal aorta: The aorta demonstrate to be within normal limits. Retroperitoneum: There is no retroperitoneal lymphadenopathy. There is no evidence for ascites and/or abnormal fluid collections. Bones: The bony structures demonstrate to be within normal limits. No evidence for compression deform ity and/or significant skeletal lesions. Soft tissues: The soft tissues demonstrate to be unremarkable. IMPRESSION: Minimal diverticulosis with questionable minimal mucosal thickening could correspond to very minimal early diverticulitis. Bilateral nephrolithiasis with no evidence for hydronephrosis and/or hydroureter. Fatty infiltration of the liver. Electronically signed by: Juan Tejeda MD 12/30/2024 02:47 AM CDT Due to temporary technical issues with the [employer] reporting system, reports are being momo d by the in-house radiologist without review as a courtesy to ensure prompt reporting the interpreting radiologist is fully responsible for the content of the report. Transcribed Date/Time: 12/30/2024 3:38 AM
--- NOTE | 2024-12-30 04:02 | EDPHYS ---
Physician Documentation [facility] Name: Yury Jolley Age: 44 yrs Sex: Male : 1980 Arrival Date: 12/29/2024 Time: 23:21 Bed 3 Private MD: ED Physician Michael Euceda HPI: 12/30 00:23 This 44 yrs old Male presents to ER via Ambulatory with complaints of tw7 Abdominal Pain. 00:24 44-year-old male with a past medical history of leukemia, diabetes, previous episodes tw7 of diverticulitis, no surgical history presents ED today with complaints of left lower quadrant and suprapubic abdominal pain. Patient reports having this abdominal pain for 3 days. Patient reports that it is a constant pain. He reports that he vomited 3 times today. He denies any diarrhea. Denies fever. Denies chest pain or shortness of breath. Close his left lower quadrant abdominal pain feels like when he had diverticulitis before in the past. He denies dysuria.. Historical: - PMHx: 00:10 diabetes mellitus; Leukemia; Diverticulitis; vc1 - PSHx: 00:10 None; vc1 - Immunization history:: Adult Immunizations up to date. - Infectious Disease History:: Denies. - Social history:: Smoking status: Reported history of juuling and/or vaping. ROS: 00:24 Abdomen/GI: Positive for abdominal pain, nausea, vomiting, Negative for diarrhea, tw7 hematemesis, black/tarry stool, rectal pain, rectal bleeding, 00:25 Constitutional: Negative for fever, chills, and weight loss, Eyes: Negative for injury, tw7 pain, redness, and discharge, ENT: Negative for injury, pain, and discharge, Neck: Negative for injury, pain, and swelling, Cardiovascular: Negative for chest pain, palpitations, and edema, Respiratory: Negative for shortness of breath, cough, wheezing, and pleuritic chest pain, MS/Extremity: Negative for injury and deformity, Skin: Negative for injury, rash, and discoloration, Neuro: Negative for headache, weakness, numbness, tingling, and seizure, Exam: 00:25 Constitutional: This is a well developed, well nourished patient who is awake, alert, tw7 and in no acute distress. Head/Face: Normocephalic, atraumatic. Eyes: Pupils equal round and reactive to light, extra-ocular motions intact. Lids and lashes normal. Conjunctiva and sclera are non-icteric and not injected. Cornea within normal limits. Periorbital areas with no swelling, redness, or edema. ENT: Nares patent. No nasal discharge, no septal abnormalities noted. Tympanic membranes are normal and external auditory canals are clear. Oropharynx with no redness, swelling, or masses, exudates, or evidence of obstruction, uvula midline. Mucous membranes moist. Neck: Trachea midline, no thyromegaly or masses palpated, and no cervical lymphadenopathy. Supple, full range of motion without nuchal rigidity, or vertebral point tenderness. No Meningismus. Chest/axilla: Normal chest wall appearance and motion. Nontender with no deformity. No lesions are appreciated. Cardiovascular: Regular rate and rhythm with a normal S1 and S2. No gallops, murmurs, or rubs. Normal PMI, no JVD. No pulse deficits. Respiratory: Lungs have equal breath sounds bilaterally, clear to auscultation and percussion. No rales, rhonchi or wheezes noted. No increased work of breathing, no retractions or nasal flaring. Skin: Warm, dry with normal turgor. Normal color with no rashes, no lesions, and no evidence of cellulitis. MS/ Extremity: Pulses equal, no cyanosis. Neurovascular intact. Full, normal range of motion. Neuro: Awake and alert, GCS 15, oriented to person, place, time, and situation. Cranial nerves II-XII grossly intact. Motor strength 5/5 in all extremities. Sensory grossly intact. Cerebellar exam normal. Normal gait. 00:25 Abdomen/GI: Palpation: moderate abdominal tenderness, in the suprapubic area, right lower quadrant and left lower quadrant, Vital Signs: 00:06 BP 135 / 91; Pulse 90; Resp 16; Temp 98.3; Pulse Ox 97% ; Weight 111.13 kg; Height 5 vc1 ft. 11 in. ; Pain 8/10; 00:59 BP 149 / 97; Pulse 84; Resp 16 S; Pulse Ox 97% on R/A; lg3 02:00 BP 141 / 97; Pulse 83; Resp 16; Pulse Ox 100% ; jj7 03:00 BP 131 / 88; Pulse 72; Resp 16; Temp 98.3; Pulse Ox 100% ; jj7 04:12 BP 135 / 82; Pulse 79; Resp 17 S; Pulse Ox 100% on R/A; lg3 00:06 Body Mass Index 34.17 (111.13 kg, 180.34 cm) vc1 00:06 Pain Scale: Adult vc1 MDM: 12/29 23:59 Medical Screening Exam initiated 12/30 04:28 Data reviewed: vital signs, nurses notes. ED course: 44-year-old male with a past ministry of hypertension, diabetes diverticulitis left lower quadrant and suprapubic pain. On my examination patient is afebrile but has left lower quadrant tenderness to palpation. Lab work performed shows no leukocytosis. Normal hemoglobin normal electrolytes. Normal kidney function mild elevation of ALT greater than AST lipase is negative urinalysis is negative. CT scan of the abdomen shows patient mild early acute diverticulitis. Patient was given IV fluid in the ED. IV pain medication. IV antibiotics. Patient's pain is able to be controlled. Patient is discharged on oral antibiotics with return precautions discussed and instructed to follow-up with his GI specialist. Patient reports understanding and agreement this plan. . 12/30 00:15 Order name: CBC with Diff; Complete Time: 12/30 00:15 Order name: CMP; Complete Time: :12/30 00:15 Order name: Lipase; Complete Time: 12/30 00:15 Order name: UA Rfx Akin Cult if indicated; Complete Time: 12/30 00:16 Order name: CT Abd/Pelvis - IV Contrast Only; Complete Time: 04:26 Administered Medications: 00:51 Drug: NS 0.9% IV 1000 ml IV at 1000 ml once; to be given as a bolus over 60 minutes jj7 Route: IV; Rate: 1000 ml; Site: right forearm; 02:14 Follow up: Response: No adverse reaction; IV Status: Completed infusion; IV Intake: lg3 1000ml 00:51 Drug: morphine IVP or IV 4 mg IVP once over 4 mins Route: IVP; Infused Over: 4 mins; jj7 Site: right forearm; 02:14 Follow up: Response: No adverse reaction lg3 00:51 Drug: Ondansetron IVP 4 mg IVP once; over 2 minutes Route: IVP; Site: right forearm; jj7 02:14 Follow up: Response: No adverse reaction lg3 03:23 Drug: Ketorolac IVP 30 mg IVP once Route: IVP; Site: right forearm; jj7 04:12 Follow up: Response: No adverse reaction; Marked relief of symptoms lg3 03:23 Drug: Rocephin IV 1 grams IV at calculated rate once; Given slow IV push per pharmacy jj7 instructions Route: IV; Rate: calculated rate; Site: right forearm; 04:12 Follow up: Response: No adverse reaction; IV Status: Completed infusion; IV Intake: [id number] Disposition Summary: 12/30/24 04:01 Discharge Ordered Notes: Location: Home tw7 Problem: new tw7 Symptoms: have improved tw7 Condition: Stable tw7 Diagnosis - Diverticulitis of large intestine without perforation or abscess without bleeding tw7 Followup: tw7 - With: Tessy Morris, DO - When: 48 Hours - Reason: Discharge Instructions: - Discharge Summary Sheet tw7 - Diverticulitis tw7 Forms: - Medication Reconciliation Form tw7 - Antibiotic Education tw7 - Prescription Opioid Use tw7 - Patient Portal Instructions tw7 - Leadership Thank You Letter tw7 Prescriptions: - Augmentin 875-125 mg Oral Tablet - take 1 tablet ORAL route every 12 hours for 10 days; 20 tablet; Refills: 0, tw7 Product Selection Permitted - Tylenol-Codeine #3 300mg-30mg Oral tablet - take 1 tablet ORAL route every 8 hours As needed; 16 tablet; Refills: 0, tw7 Product Selection Permitted Signatures: Dispatcher [employer] EDVA Shavonne Rivero RN RN vc1 Linnette Knight RN RN jj7 Michael Euceda MD MD tw7 Sylwia Ford RN lg3 Corrections: (The following items were deleted from the chart) 00:16 00:16 CBC+H.LAB.BRZ ordered. EDMS EDMS 00:16 00:16 COMPREHENSIVE METABOLIC PANEL+C.LAB.BRZ ordered. EDMS EDMS 00:16 00:16 LIPASE+C.LAB.BRZ ordered. EDMS EDMS 00:16 00:16 UA Rfx Akin Cult if indicated+U.LAB.BRZ ordered. EDMS EDMS
--- NOTE | 2024-12-30 04:02 | ER ---
Nurse's Notes [facility] Name: Yury Jolley Age: 44 yrs Sex: Male : 1980 Arrival Date: 12/29/2024 Time: 23:21 Bed 3 Private MD: Diagnosis: Diverticulitis of large intestine without perforation or abscess without bleeding Presentation: 12/30 00:06 Chief complaint: Patient states: lower abdominal pain for 3 days today have nausea and vc1 vomiting. Feels like when I had diverticulitis before. Coronavirus screen: Client denies travel out of the [place] in the last 14 days. At this time, the client does not indicate any symptoms associated with coronavirus-19. Ebola Screen: Patient negative for fever greater than or equal to 101.5 degrees Fahrenheit, and additional compatible Ebola Virus Disease symptoms Patient denies exposure to infectious person. Patient denies travel to an Ebola-affected area in the 21 days before illness onset. No symptoms or risks identified at this time. Initial Sepsis Screen: Does the patient meet any 2 criteria? No. Patient's initial sepsis screen is negative. Does the patient have a suspected source of infection? No. Patient's initial sepsis screen is negative. Risk Assessment: Do you want to hurt yourself or someone else? Patient reports no desire to harm self or others. Onset of symptoms was December 27, 2024. 00:06 Method Of Arrival: Ambulatory vc1 00:06 Acuity: ELIER 3 vc1 Triage Assessment: 00:15 General: Appears in no apparent distress. uncomfortable, Behavior is calm, cooperative, vc1 appropriate for age. Pain: Complains of pain in right lower quadrant and left lower quadrant Pain does not radiate. Pain currently is 8 out of 10 on a pain scale. Also complains of nausea. EENT: No deficits noted. No signs and/or symptoms were reported regarding the EENT system. Neuro: Level of Consciousness is awake, alert, obeys commands, Oriented to person, place, time, situation, Appropriate for age. Cardiovascular: Capillary refill < 3 seconds Patient's skin is warm and dry. Respiratory: Airway is patent Respiratory effort is even, unlabored, Respiratory pattern is regular, symmetrical, Breath sounds are clear bilaterally. GI: Abdomen is round non-distended, Reports lower abdominal pain, nausea, vomiting. : No deficits noted. No signs and/or symptoms were reported regarding the genitourinary system. Derm: Skin is intact, is healthy with good turgor, Skin is dry, Skin is normal, Skin temperature is warm. Musculoskeletal: Circulation, motion, and sensation intact. Range of motion: intact in all extremities. Historical: - PMHx: 00:10 diabetes mellitus; Leukemia; Diverticulitis; vc1 - PSHx: 00:10 None; vc1 - Immunization history:: Adult Immunizations up to date. - Infectious Disease History:: Denies. - Social history:: Smoking status: Reported history of juuling and/or vaping. Screenin:14 [facility] ED Fall Risk Assessment (Adult) History of falling in the last 3 months, vc1 including since admission No falls in past 3 months (0 pts) Confusion or Disorientation No (0 pts) Intoxicated or Sedated No (0 pts) Impaired Gait No (0 pts) Mobility Assist Device Used No (0 pt) Altered Elimination No (0 pt) Score/Fall Risk Level 0 - 2 = Low Risk Oriented to surroundings, Maintained a safe environment, Educated pt \T\ family on fall prevention, incl call for assistance when getting out of bed, Assessed \T\ reinforced patient's understanding of fall precautions, Hourly rounding (assess needs \T\ fall precautionary measures) done. Abuse screen: Denies threats or abuse. Nutritional screening: No deficits noted. Tuberculosis screening: No symptoms or risk factors identified. Assessment: 00:20 General: Appears in no apparent distress. comfortable, Behavior is calm, cooperative. lg3 Pain: Complains of pain in left lower quadrant and right lower quadrant Pain does not radiate. Pain currently is 6 out of 10 on a pain scale. Neuro: No deficits noted. Doty Agitation-Sedation Scale (RASS): 0 - Alert and Calm Level of Consciousness is awake, alert, obeys commands, Oriented to person, place, time, situation. Cardiovascular: No deficits noted. Denies chest pain, shortness of breath, Capillary refill < 3 seconds Clubbing of nail beds is absent JVD is present Patient's skin is warm and dry. Respiratory: No deficits noted. Airway is patent Respiratory effort is even, unlabored, Respiratory pattern is regular, symmetrical. GI: Abdomen is round non-distended, obese, Bowel sounds present X 4 quads. Abd is soft X 4 quads Abdomen is tender to palpation in right lower quadrant and left lower quadrant Reports lower abdominal pain, nausea, vomiting. : No signs and/or symptoms were reported regarding the genitourinary system. EENT: No deficits noted. No signs and/or symptoms were reported regarding the EENT system. Derm: No deficits noted. No signs and/or symptoms reported regarding the dermatologic system. Skin is intact, is healthy with good turgor, Skin is dry, Skin is normal, Skin temperature is warm. Musculoskeletal: No deficits noted. No signs and/or symptoms reported regarding the musculoskeletal system. Circulation, motion, and sensation intact. Range of motion: intact in all extremities. 02:14 Reassessment: Patient appears in no apparent distress at this time. No changes from lg3 previously documented assessment. Patient and/or family updated on plan of care and expected duration. Pain level reassessed. Patient is alert, oriented x 3, equal unlabored respirations, skin warm/dry/pink. 04:12 Reassessment: Patient appears in no apparent distress at this time. No changes from lg3 previously documented assessment. Patient and/or family updated on plan of care and expected duration. Pain level reassessed. Patient is alert, oriented x 3, equal unlabored respirations, skin warm/dry/pink. Patient states feeling better. Patient states symptoms have improved. Vital Signs: 00:06 BP 135 / 91; Pulse 90; Resp 16; Temp 98.3; Pulse Ox 97% ; Weight 111.13 kg; Height 5 vc1 ft. 11 in. ; Pain 8/10; 00:59 BP 149 / 97; Pulse 84; Resp 16 S; Pulse Ox 97% on R/A; lg3 02:00 BP 141 / 97; Pulse 83; Resp 16; Pulse Ox 100% ; jj7 03:00 BP 131 / 88; Pulse 72; Resp 16; Temp 98.3; Pulse Ox 100% ; jj7 04:12 BP 135 / 82; Pulse 79; Resp 17 S; Pulse Ox 100% on R/A; lg3 00:06 Body Mass Index 34.17 (111.13 kg, 180.34 cm) vc1 00:06 Pain Scale: Adult vc1 ED Course: 12/29 23:24 Patient arrived in ED. gm2 23:31 Michael Euceda MD is Attending Physician. 12/30 00:10 Triage completed. vc1 00:14 Arm band placed on right wrist. vc1 00:14 Patient has correct armband on for positive identification. Bed in low position. Call vc1 light in reach. Provided Education on: Plan of care. Pulse ox on. NIBP on. 00:20 Sylwia Ford RN is Primary Nurse. lg3 00:20 Door closed. Noise minimized. Warm blanket given. Pillow given. Family accompanied lg3 patient. 00:45 Inserted saline lock: 20 gauge in right forearm, using aseptic technique. Blood jj7 collected. Flushed with 10 mL NS. 00:51 UA Rfx Akin Cult if indicated Sent. jj7 00:51 Lipase Sent. jj7 00:51 CMP Sent. jj 00:51 CBC with Diff Sent. jj7 01:53 CT Abd/Pelvis - IV Contrast Only In Process Unspecified. EDMS 04:00 Tessy Morris DO is Referral Physician. tw7 04:13 No provider procedures requiring assistance completed. IV discontinued, intact, lg3 bleeding controlled, No redness/swelling at site. Pressure dressing applied. Administered Medications: 00:51 Drug: NS 0.9% IV 1000 ml IV at 1000 ml once; to be given as a bolus over 60 minutes jj7 Route: IV; Rate: 1000 ml; Site: right forearm; 02:14 Follow up: Response: No adverse reaction; IV Status: Completed infusion; IV Intake: lg3 1000ml 00:51 Drug: morphine IVP or IV 4 mg IVP once over 4 mins Route: IVP; Infused Over: 4 mins; jj7 Site: right forearm; 02:14 Follow up: Response: No adverse reaction lg3 00:51 Drug: Ondansetron IVP 4 mg IVP once; over 2 minutes Route: IVP; Site: right forearm; jj7 02:14 Follow up: Response: No adverse reaction lg3 03:23 Drug: Ketorolac IVP 30 mg IVP once Route: IVP; Site: right forearm; jj7 04:12 Follow up: Response: No adverse reaction; Marked relief of symptoms lg3 03:23 Drug: Rocephin IV 1 grams IV at calculated rate once; Given slow IV push per pharmacy jj7 instructions Route: IV; Rate: calculated rate; Site: right forearm; 04:12 Follow up: Response: No adverse reaction; IV Status: Completed infusion; IV Intake: [id number] Medication: 00:15 VIS not applicable for this client. vc1 Intake: 02:14 IV: 1000ml; Total: 1000ml. lg3 04:12 IV: 10ml; Total: 1010ml. lg3 Outcome: 04:01 Discharge ordered by . tw7 04:13 Discharged to home ambulatory, lg3 04:13 Condition: stable 04:13 Discharge instructions given to patient, Instructed on discharge instructions, follow up and referral plans. medication usage, Demonstrated understanding of instructions, follow-up care, medications, Prescriptions given X 2, 04:13 Patient left the ED. lg3 Signatures: Dispatcher [employer] EDMS Sylwia Ford RN RN lg3 Shavonne Rivero RN RN vc1 Linnette Knight RN RN Karla Bai 2 Michael Euceda MD MD tw7
[2024-12-30 15:24] VITALS: TEMP 98.3
[2024-12-30 15:25] VITALS: O2SAT 100
[2024-12-30 15:29] VITALS: BP 135/82
== END 2024-12-30 04:13 | disposition home or self-care (01) ==
LOC: ER 23:21
DX: K57.32 Diverticulitis of large intestine without perforation or abscess without bleeding (principal)
CPT/HCPCS: 96365; 96361; 85025; 36415; 81003; 83690; 80053; 74177; 96375; 99284; Q9967; J2405; J7030; J0696

== ENCOUNTER 2025-01-28 00:33 | Emergency (ER) | payer OTHER ==
--- OUTSIDE RECORDS SUMMARY | 2025-01-28 00:38 | XMS REPORT | Continuity of Care Document ---
Author Name Unknown Address [address] [facility] [place] [address] [facility] Address [address] [facility] [address] [place] [address] Care Team Providers Care Editor Continuity And Script Name Role Phone NONE, NONE Primary Care Physician UnavailGraham Morrissey Attending Clinician DR ZACHARY Granados Attending Clinician DR ZACHARY Guerin Attending Clinician Lizeth Michelle Attending Clinician Unavailable Lizeth RAMON Attending Clinician Unavailable Lizeth Brock Attending Clinician [phone] Ellie Tong LVN Attending Clinician [phone] YOEL CEBALLOS Attending Clinician Unavailable Zainab Echavarria NP Attending Clinician [phone] Yoel Ceballos MD Attending Clinician [phone] Doctor Unassigned, Mchenry Attending Clinician U DR ZACHARY Mckoy Admitting Clinician Lizeth Michelle Admitting Clinician Unavailable YOEL CEBALOLS Admitting Clinician Unavailable Yoel Ceballos MD Admitting Clinician [phone] Payers Payer Name Policy Type Policy Number Effective Date Expirati on Date Source 110 [id number] 2024 00:00:00 STEVEN LOZA [facility] TONIO [id number] 2024 00:00:00 Problems Condition Name Condition Details Condition Category Status Onset Date Resolution Date Last Treatment Date Treating Clinician Comments Source Obesity (BMI 30-39.9) Obesity (BMI 30-39.9) Disease Active 2021-05 00:00: 00 [facility] [id number] Essential hypertensi on Problem [facility] [id number] Adult ADHD Problem Com mon [facility] Vitamin B>12< deficiency anaemia Other vitamin B12 deficiency anemias Problem [facility] Iron deficiency anemia Other iron deficiency anemia Problem [facility] Chronic lymphoid leukemia, 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 Problem [facility] [id number] Mood disorder Problem [facility] [id number] Plantar wart Problem [facility] Diverticul ar disease of colon Diverticul ar disease of large intestine without perforatio n or abscess Problem [facility] [id number] Diverticul itis Problem [facility] [id number] Type 2 diabetes mellitus with hyperglyce juan, without long-term current use of insulin Problem [facility] Allergies, Adverse Reactions, Alerts Allergy Name Allergy Type Status Severity Reaction(s) Onset Date Inactive Date Treating Clinician Comments Source [place] - Intraven ous Propensi ty to adverse reaction to drug Active 11-07 00:00: 00 Castillo Saleem NO KNOWN ALLERGIE S Drug Class Active [facility] No Known Drug Allergie s DA Active [facility] Social History Social Habit Start Date Stop Date Quantity Comments Source Sex Assigned At [facility] Sexual orientation U [facility] History of Social function 2024-06-11 00:00:00 2024-06-11 00:00:00 [facility] Exposure to SARS-CoV-2 (event) 2022-01-24 00:00:00 2022-02-03 00:21:00 Not sure [facility] Tobacco use and exposure 2022-02-03 00:00:00 2022-02-03 00:00:00 Smokeless tobacco non-user [facility] History of Tobacco Use 2015-05-04 00:00:00 [facility] Smoking Status Start Date Stop Date Source Tobacco smoking consumption unknown [facility] Former Smoker 2024-11-26 00:00:00 2024-11-26 00:00:00 [facility] Smokes tobacco daily 2022-02-03 00:00:00 [facility] Medications Ordered Medication Name Filled Medication [...] 1 dose, On Fri06/11/24 at 2145, STAT [facility] iopamidol (ISOVUE 370-500 mL) injection 100 mL 06-12 03:00: 00 06-12 03:00 :00 No [id number] 100mL 100 mL, Intravenou s, ONCE, 1 dose, On Fri06/11/24 at 2100, Routine [facility] ondansetron (ZOFRAN (PF)) injection 4 mg 06-12 02:30: 00 06-12 02:20 :00 No 4mg 4 mg, Slow IV Push, ONCE, 1 dose, On Fri06/11/24 at 2030, 2 mL [facility] morpHINE (4 mg/mL) injection 4 mg 06-12 01:30: 00 06-12 02:21 :00 No 4mg 4 mg, Slow IV Push, ONCE, 1 dose, On Fri06/11/24 at 1930, STAT [facility] Cipro 500 mg tablet 2023-05 00:00: 00 Yes 1mg Castillo Saleem metronidazo le 500 mg tablet 2023-05 00:00: 00 Yes 1mg Castillo Saleem Tylenol Extra Strength 500 mg tablet 2023-05 00:00: 00 Yes 12mg Castillo Alaina Saleem TAKE 1 TABLET AT BEDTIME NEEDED. 05-12 00:00: 00 08-17 00:00 :00 No 50 Castilloxin Saleem TAKE 1 TABLET DAILY. 05-12 00:00: 00 08-17 00:00 :00 No 50 Castillo Saleem TAKE 1/2 TABLET AT BEDTIME. 2022-05 00:00: 00 08-17 00:00 :00 No 50 Castillo Saleem TAKE 1 TABLET DAILY. 2022-05 00:00: 00 08-17 00:00 :00 No 50 Castilloxin Saleem TAKE 1 TO 2 TABLETS AT BEDTIME 2022-05 00:00: 00 08-17 00:00 :00 No 25 Castilloxin Saleem TAKE 1 TABLET DAILY. 2022-05 00:00: 00 08-17 00:00 :00 No 25 Castilloxin Saleem APPLY SPARINGLY TO AFFECTED AREA(S) TWICE DAILY 08-26 00:00: 00 08-17 00:00 :00 No 2 Castillo Alaina Saleem TAKE 1 TABLET TWICE DAILY WITH FOOD. 08-26 00:00: 00 08-17 00:00 :00 No [id number] Castillo Saleem TAKE 1 TABLET DAILY DIRECTED. 08-19 00:00: 00 08-17 00:00 :00 No 500 Castillo Alaina Saleem piperacilli n-tazobacta m (ZOSYN) 3.375 g [...] Abdominal< br>Duratio n of therapy: 72 hours [facility] TAKE ONE (1) TABLET(S) BY MOUTH EVERY MORNING AND EVENING FOR 7 DAYS. 2021-05 0 00:00: 00 08-17 00:00 :00 No Castillo Foley Stiven acidophilus 100 million cell tablet 2021-05 0- 00:00: 00 03-09 04:59 :00 No [id number] 1g Take 1 tablet by mouth in the morning and 1 tablet in the evening. Do all this for 30 days. [facility] amoxicillin -clavulanat e (AUGMENTIN) 875-125 mg per tablet 2021-05 0 00:00: 00 02-14 04:59 :00 No [id number] 1{tbl} Take 1 tablet by mouth in the morning and 1 tablet in the evening. Do all this for 7 days. [facility] iopamidol (ISOVUE 370-500 mL) injection 60 mL 2021-05 0 14:20: 00 02-05 14:21 :00 No [id number] 60mL 60 mL, Intravenou s, ONCE, 1 dose, On Fri02/05/22 at 0930, Routine [facility] enoxaparin (LOVENOX) injection 40 mg 2021-05 22:00: 00 Yes 40mg 40 mg, Subcutaneo us, DAILY, First dose on Fri02/03/22 at 1700, Until Discontinu ed, Routine [facility] piperacilli n-tazobacta m (ZOSYN) 3.375 [...] br>Duratio n of therapy: 72 hours [facility] acetaminoph en (TYLENOL) tablet 650 mg 2021-05 14:08: 38 Yes 650mg 650 mg, Oral, Q6HPRN, Starting on Fri02/03/22 at 0908, Until Discontinu ed, Routine, Pain (scale 4-6) [facility] NaCl 0.9% (NS) IV infusion 1,000 mL 2021-05 10:15: 00 Yes 1000mL at 100 mL/hr, IV Infusion, CONTINUOUS , Starting on Fri02/03/22 at 0515, Until Discontinu ed, Routine [facility] ondansetron (ZOFRAN (PF)) injection 4 mg 2021-05 10:13: 17 Yes 4mg 4 mg, Slow IV Push, Q6HPRN, Starting on Fri02/03/22 at 0513, Until Discontinu ed, Routine, Nausea and Vomiting (N/V) [facility] iopamidol (ISOVUE 370-500 mL) injection 100 mL 2021-05 08:30: 00 02-03 07:37 :00 No [id number] 100mL 100 mL, Intravenou s, ONCE, 1 dose, On Fri02/03/22 at 0330, Routine [facility] piperacilli n-tazobacta m (ZOSYN) 3.375 g in NaCl 0.9% (NS) 50 mL MINI-BAG 2021-05 08:15: 00 02-03 08:56 :00 No 3.375g 3.375 g, IV Piggyback, ONCE, 1 dose, On 02/03/22 at 0315, Administer over 30 Minutes, 50 mL
Reas on for Anti-Infec tive: Empiric Therapy for Suspected Infection< br>Empiric Therapy Site: Abdominal< br>Duratio n of therapy: 72 hours [facility] ketorolac (TORADOL) injection 30 mg 2021-05 06:45: 00 02-03 06:02 :00 No 30mg 30 mg, Slow IV Push, ONCE, 1 dose, On 02/03/22 at 0145, Routine [facility] Vitamin D2 1,250 mcg (50,000 unit) capsule [...] height 2024-11-26 09:00:00 70 [in_i] Commo n [facility] weight 2024-11-26 09:00:00 245.0 [lb_av] Co mmon [facility] temperature 2024-11-26 09:00:00 97.3 [degF] Com mon [facility] bmi 2024-11-26 09:00:00 35.15 kg/m2 Comm on [facility] oximetry 2024-11-26 09:00:00 97 % Commo n [facility] blood pressure systolic 2024-11-26 09:00:00 126 mm[Hg] Common [facility] blood pressure diastolic 2024-11-26 09:00:00 80 mm[Hg] Common [facility] height 2024-07-14 09:45:00 70 [in_i] Commo n [facility] weight 2024-07-14 09:45:00 242.6 [lb_av] Co mmon [facility] temperature 2024-07-14 09:45:00 98.1 [degF] Com mon [facility] bmi 2024-07-14 09:45:00 34.81 kg/m2 Comm on [facility] oximetry 2024-07-14 09:45:00 98 % Commo n [facility] respiratory rate 2024-07-14 09:45:00 16 /min Common [facility] blood pressure systolic 2024-07-14 09:45:00 138 mm[Hg] Common [facility] blood pressure diastolic 2024-07-14 09:45:00 82 mm[Hg] Common [facility] Weight 2024-06-26 23:00:00 106.8 KG Weight 2024-06-26 23:00:00 106.8 KG Weight 2024-06-26 23:00:00 106.8 KG Systolic blood pressure 2024-06-12 04:45:00 133 mm[Hg] [facility] Diastolic blood pressure 2024-06-12 04:45:00 92 mm[Hg] [facility] Heart rate 2024-06-12 04:45:00 74 /min [facility] Body temperature 2024-06-12 04:45:00 36.61 Jessica [facility] Respiratory rate 2024-06-12 04:45:00 20 /min [facility] Oxygen saturation in Arterial blood by Pulse oximetry 2024-06-12 04:45:00 99 /min [facility] Body height 2024-06-12 01:11:00 177.8 cm [facility] Body weight 2024-06-12 01:11:00 108.863 kg [facility] BMI 2024-06-12 01:11:00 34.44 kg/m2 [facility] Systolic blood pressure 2022-02-06 18:27:00 141 mm[Hg] [facility] Diastolic blood pressure 2022-02-06 18:27:00 92 mm[Hg] [facility] Heart rate 2022-02-06 18:27:00 68 /min [facility] Body temperature 2022-02-06 18:27:00 36.44 Jessica [facility] Respiratory rate 2022-02-06 18:27:00 16 /min [facility] Oxygen saturation in Arterial blood by Pulse oximetry 2022-02-06 18:27:00 100 /min [facility] Body weight 2022-02-06 08:06:00 99.111 kg [facility] BMI 2022-02-06 08:06:00 33.22 kg/m2 [facility] Body height 2022-02-03 09:45:00 172.7 cm [facility] BP Systolic 2024-02-09 10:19:00 146 mm[Hg] [...] Weight Measured 2023-05-12 16:03:00 243.00 pounds Castillo F Stiven Height Measured 2023-05-12 16:03:00 68.00 inches Castillo [...] Saleem BP Systolic 2021-11-07 11:28:00 132 mm[Hg] Step hen Alaina Saleem BP Diastolic 2021-11-07 11:28:00 [...] PELVIS W CONTRAST 2024-06-12 02:14:50 Lizeth Ramon [facility] URINALYSIS 2024-06-12 01:59:00 Lizeth Ramon [facility] LIPASE 2024-06-12 01:58:00 Lizeth Ramon [facility] MAGNESIUM 2024-06-12 01:58:00 Lizeth Ramon [facility] TROPONIN I 2024-06-12 01:58:00 [facility] COMP. METABOLIC PANEL ([id number]) 2024-06-12 01:58:00 Lizeth Ramon [facility] CBC WITH DIFF 2024-06-12 01:58:00 Lizeth Ramon [facility] BASIC METABOLIC PANEL (NA, K, CL, CO2, GLUCOSE, BUN, CREATININE, CA) 2022-02-06 09:21:00 [facility] 2022-02-06 09:21:00 Shellie Roldan [facility] URINALYSIS 2022-02-05 21:57:00 Radha Clement [facility] CT ABDOMEN PELVIS W CONTRAST 2022-02-05 14:25:48 Lori Bansal [facility] BASIC METABOLIC PANEL (NA, K, CL, CO2, GLUCOSE, BUN, CREATININE, CA) 2022-02-05 09:04:00 [facility] DIFF 2022-02-05 09:04:[address] [facility] BASIC METABOLIC PANEL (NA, K, CL, CO2, GLUCOSE, BUN, CREATININE, CA) 2022-02-04 07:48:00 Jory [facility] CBC WITH DIFF 2022-02-04 07:48:00 [facility] ABDOMEN PELVIS W CONTRAST 2022-02-03 07:36:00 Zainab Echavarria [facility] LIPASE 2022-02-03 05:55:00 Zainab Echavarria [facility] COMP. METABOLIC PANEL ([id number]) 2022-02-03 05:55:00 Zainab Echavarria [facility] CBC WITH DIFF 2022-02-03 05:55:00 Zainab Echavarria [facility] URINALYSIS 2022-02-03 05:55:00 Zainab Echavarria [facility] NOTICE OF PRIVACY PRACTICES 2022-02-03 05:18:05 Doctor Unassigned, Mchenry [facility] Encounters Start Date/Time End Date/Time Encounter Type Admission Type Attending Clinicians Care Facility Care Department Encounter ID Source 2024-07-14 09:23:01 Outpatient Payne Graham [facility] [id number] [facility] 2024-11-26 00:00:00 2024-11-26 00:00:00 OFFICE VISIT ESTAB PT LEVEL 4 STLMLC STLMLC [id number] [facility] 2024-10-15 00:00:00 2024-10-15 00:00:00 OFFICE VISIT ESTAB PT LEVEL 4 STLMLC STLMLC [id number] [facility] 2024-09-14 00:00:00 2024-09-14 00:00:00 OFFICE VISIT ESTAB PT LEVEL 4 STLMLC STLMLC [id number] [facility] 2024-09-09 00:00:00 2024-09-09 00:00:00 (TEL) STLMLC STLMLC [id number] [facility] 2024-07-14 00:00:00 2024-07-14 00:00:00 OFFICE VISIT ESTAB PT LEVEL 4 STLMLC STLMLC [id number] [facility] 2024-06-26 22:58:00 2024-06-27 01:23:00 Emergency E ZACHARY HOLT [facility] [id number] [facility] 2024-06-26 22:58:00 2024-06-27 01:23:00 Emergency E ZACHARY HOLT, [facility] [id number] [facility] 2024-06-26 22:58:00 2024-06-27 01:23:00 [facility] [id number] 2024-06-11 19:11:00 2024-06-11 22:51:00 Emergency X Lizeth RAMON K [facility] ERT [id number] [facility] 2024-06-11 19:11:00 2024-06-11 22:51:00 Emergency Lizeth Ramon [facility] AT [facility] [id number] [facility] 2024-02-19 10:09:08 2024-02-19 10:09:08 Outpatient SFA SFA [id number] Castillo Saleem 2024-02-09 10:13:25 2024-02-09 10:13:25 Outpatient SFA SFA [id number] Castillo Saleem 2024-02-09 00:00:00 2024-02-09 00:00:00 Outpatient Visit SFA [id number] Castillo Saleem 2024-02-06 16:43:26 2024-02-06 16:43:26 Outpatient SFA SFA [id number] Castillo Saleem 2023-05-27 11:11:01 2023-05-27 11:11:01 Outpatient SFA SFA [id number] Castillo Saleem 2023-04-16 09:59:08 2023-04-16 09:59:08 Outpatient SFA SFA [id number] Castillo Saleem 2023-03-25 16:22:46 2023-03-25 16:22:46 Outpatient SFA SFA [id number] Castillo Saleem 2022-09-18 09:13:49 2022-09-18 09:13:49 Outpatient SFA SFA [id number] Castillo Saleem 2022-09-09 08:13:12 2022-09-09 08:13:12 Outpatient SFA SFA [id number] Castillo Saleem 2022-08-19 09:34:13 2022-08-19 09:34:13 Outpatient SFA SFA [id number] Castillo Saleem 2022-08-12 08:47:37 2022-08-12 08:47:37 Outpatient SFA SFA [id number] Castillo Saleem 2022-02-07 00:00:00 2022-02-07 00:00:00 Transition of Care Ellie Tong [id number] [facility] 2022-02-03 00:25:00 2022-02-06 16:35:00 Inpatient X YOEL CEBALLOS [facility] [id number] [facility] 2022-02-03 00:25:00 2022-02-06 16:35:00 Hospital Encounter Zainab Echavarria [facility] [id number] [facility] 2019-12-22 00:00:00 2019-12-22 00:00:00 Patient Secure Msg Doctor Unassigned, Mchenry [facility] [id number] [facility] Results Test Description Test Time Test Comments Results Result Co mments Source LIPASE [id number] 23:54:00* Test Item Value Reference Range Interpretation Comme nts LIPASE (test code = 60A) 35 IU/L 12-53 COMPREHENSIVE METABOLIC [id number] 23:54:00* Test Item Value Reference Range Interpretation [...] code = 31A) 60 IU/L 10-49 H [id number] 23:54:00* Test Item Value Reference Range Interpretation [...] RBC MORPH (test code = RBCMOR) NORMAL [id number] 23:42:00* Test Item Value Reference Range Interpretation [...] LEUK) NEGATIVE NEGATIVE CT Abdomen pelvis w [id number] 02:19:01EXAM: CT ABDOMEN PELVIS W CONTRAST ORDERING [...] represent bone islands. Mild spondylotic changes are present[facility] WITH PLATELETS 2024-02-10 12:16:09* [...] = 1065) 0.0 /100 WBC'S See_Comment [Automated [employer]] The system which generated this result [...] 0.00-0.10 ABS NUCLEATED RBCS (test code = 12444) 0.00 K/UL 0.00-0.11 COMPREHENSIVE METABOLIC [id number] 06:54:38* Test Item Value Reference Range Interpretation Comme nts GLUCOSE (test code = 2217) 92 MG/DL 70-99 BUN (test code = 220) 18 MG/DL 6-20 CREATININE (test code = 2214) 0.93 MG/DL 0.80-1.40 eGFR (2020 CKD-EPI) (test code = 24980) 105 ML/MIN/1.73 >60 CALC BUN/CREAT (test code [...] INDICATED, ALL TESTING PERFORMED AT [facility] [employer] [employer] [address] [place] [address] SEATING AND MOBILITY TECHNOLOGIST: JEANNIE HAYDEN M.D. CLIA NUMBER [id number] [place]. [id number] CULTURE, [id number] 10:26:47SPECIMEN NUMBER: [id number] CULTURE, URINE SPECIMEN NUMBER: [id number] SPECIMEN COMMENT: URINE SOURCE: URINE REPORT STATUS: FINAL FINAL REPORT: 09/11/2022 NO GROWTH AFTER 36 HOURS INCUBATIONCULTURE, URINE 2022-09-11 00:00:00* Test Item Value Reference Range Interpretation Comme nts CULTURE, URINE (test code = 07952) SPECIMEN NUMBER: [id number] Castillo Foley AustinCT/NG, NAAT, [id number] 16:05:23* Test Item Value Reference Range Interpretation Comme nts CHLAMYDIA, NAAT, URINE (test code = 67622) NEGATIVE NEGATIVE Assay methodolog y is nucleic acid amplification by transcriptionmediated amplification (TMA) utilizing the Aptima Combo 2 Assay. A negative result does not exclude low level infection, specimensampling error, or collection error. GONORRHEA, NAAT, URINE (test code = 73803) NEGATIVE NEGATIVE Assay methodolog y is nucleic acid amplification by transcriptionmediated amplification (TMA) utilizing the Aptima Combo 2 Assay. A negative result does not exclude low level infection, specimensampling error, or collection error. UNLESS OTHERWISE INDICATED, ALL TESTING PERFORMED AT [facility] [address] [place] [address] SEATING AND MOBILITY TECHNOLOGIST: JEANNIE HAYDEN M.D. CLIA NUMBER [id number] [place]. [id number] HIV 1/2 4TH GEN, RFLX [id number] 04:08:09* Test Item Value Reference Range Interpretation Comme nts HIV 1/2 4TH GEN, RFLX CONF ( test code = 3514) NON-REACTIVE NON-REACTIVE PSA, [id number] 04:07:46* Test Item Value Reference Range Interpretation Comme nts PSA, TOTAL (test code = 2606) 1.17 NG/ML See_Comment NOTE: Methodolog y is Nataly Pina Electrochemiluminescence Immunoassay traceable to WHO reference standard 96/760. [Automated message] The system which generated this result transmitted reference range: <=4.00. The reference range was not used to interpret this result as normal/abnormal. HIV 1/2 4TH GEN, RFLX [id number] 00:00:00* Test Item Value Reference Range Interpretation Comme nts HIV 1/2 4TH GEN, RFLX CONF ( test code = 3514) NON-REACTIVE Castillo SaleemPSA, [id number] 00:00:00* Test Item Value Reference Range Interpretation Comme nts PSA, TOTAL (test code = 2606) 1.17 NG/ML Castillo Foley AustinCT/NG, TMA, [id number] 00:00:00* Test Item Value Reference Range Interpretation Comme nts CHLAMYDIA, NAAT, URINE (test code = 55287) NEGATIVE GONORRHEA, NAAT, URINE (test code = 25537) NEGATIVE Castillo SaleemVITAMIN D, 25 [id number] 07:11:13* Test Item Value Reference Range Interpretation [...] . . . . NG/ML 30-100 LIPID [id number] 03:35:18* Test Item Value Reference Range Interpretation [...] SPECIMENS. FOR MOREINFORMATION, SEE CLIENT ANNOUNCEMENT AT [email or web address] RISK RATIO LDL/HDL (test code = 2238) 1.68 RATIO <3.55 COMPREHENSIVE METABOLIC [id number] 03:35:18* Test Item Value Reference Range Interpretation Comme nts GLUCOSE (test code = 2217) 100 MG/DL 70-99 H BUN (test code = 8) 17 MG/DL 6-20 CREATININE (test code = 2214) 0.83 MG/DL 0.80-1.40 eGFR (2020 CKD-EPI) (test code = 39280) 113 ML/MIN/1.73 >60 CALC BUN/CREAT (test code [...] code = 2219) 39 U/L 5-50 HEMOGLOBIN [id number] 03:02:02* Test Item Value Reference Range Interpretation Comme nts HEMOGLOBIN A1c (test code = 67897) 6.0 % 4.2-5.6 H [employer] GUIDELINES FOR HGB A1C: [...] OR LABORATORY CONSULTATION. CBC W/AUTO DIFF WITH [id number] 02:37:49* Test Item Value Reference Range Interpretation [...] H ABS NUCLEATED RBCS (test code = 61741) 0.00 K/UL 0.00-0.11 [facility] has important pathology staff changes effective 07/03/2022. New pathology staff will provide uninterrupted, excellent patient care and clinical consultation. See URL: [email or web address]. UNLESS OTHERWISE INDICATED, ALL TESTING PERFORMED AT [facility] [address] [place] [address] SEATING AND MOBILITY TECHNOLOGIST: JEANNIE HAYDEN M.D. CLIA NUMBER [id number] [facility] [place]. [id number] VITAMIN D, 25 [id number] 00:00:00* Test Item Value Reference Range Interpretation Comme [facility] VITAMIN D, 25 OH (test code = 4958) 17 NG/ML Castillo SaleemHEMOGLOBIN [id number] 00:00:00* Test Item Value Reference Range Interpretation Comme [facility] HEMOGLOBIN A1c (test code = 48658) 6.0 % Castillo Foley ZeelandLIPID [id number] 00:00:00* Test Item Value Reference Range Interpretation Comme nts CHOLESTEROL (test code = 2210) 222 MG/DL TRIGLYCERIDES (test code = 2232) 43 MG/DL HDL CHOLESTEROL (test code = 2220) 78 MG/DL CALC LDL CHOL (test code = 2237) 131 MG/DL RISK RATIO LDL/HDL (test cod e = 2238) 1.68 RATIO Castillo Foley StivenCOMPREHENSIVE METABOLIC [id number] 00:00:00* Test Item Value Reference Range Interpretation Comme nts GLUCOSE (test code = 2217) 100 MG/DL BUN (test code = 2208) 17 MG/DL CREATININE (test code = 2214) 0.83 MG/DL eGFR (2020 CKD-EPI) (test code = 37514) 113 ML/MIN/1.73 CALC BUN/CREAT (test code = [...] (test code = 2219) 39 U/L Castillo Foley StivenCBC W/AUTO [id number] 00:00:00* Test Item Value Reference Range Interpretation [...] ABS NUCLEATED RBCS (test cod e = 70482) 0.00 K/UL Castillo SaleemCOMMario. METABOLIC PANEL ([id number])2022-02-03 06:27:45* Test Item Value Reference Range Interpretation Comme nts NA (test code = 5988523152) 142 mmol/L 135-145 K (test code = 5031782046) 4.2 mmol/L 3.5-5 CL (test code = 7874572989) 105 mmol/L 98-108 CO2 TOTAL (test code = 4814509967) 26 mmol/L 23-31 AGAP (test code = 6292711835) 2-16 BUN (test code = 0485879075) 16 mg/dL 7-23 GLUCOSE (test code = 3723489662) 97 mg/dL 70-110 CREATININE (test code = 8751401555) 0.94 mg/dL 0.6-1.25 TOTAL BILI (test code = 9767538246) 0.8 mg/dL 0.1-1.1 CALCIUM (test code = 4252709189) 10.0 mg/dL 8.6-10.6 T PROTEIN (test code = 2970161264) 8.0 g/dL 6.3-8.2 ALBUMIN (test code = 3315853153) 4.9 g/dL 3.5-5 ALK PHOS (test code = 9512274445) 151 U/L 34-122 H ALTv (test code = 1742-6) 84 U/L 5-50 H AST(SGOT) (test code = 6038527944) 42 U/L 13-40 H eGFR (test code = 2417821553) mL/min/1.73m2 TOM (test code = TOM) Association [...] imaging tests). Lab Interpretation (test code = 04479-3) [facility]normal [facility] 06:27:45* Test Item Value Reference Range Interpretation Comme nts LIPASE (test code = 8791453384) 84 U/L 0-220 Lab Interpretation (test cod e = 27069-2) Normal [facility] WITH [id number] 06:04:42* Test Item Value Reference Range Interpretation Comme nts WBC (test code = 6690-2) See_Comment [Automated [employer]] The system which generated this result transmitted reference range: 4.20 - 10.70 10*3/?L. The reference range was not used to interpret this result as normal/abnormal. RBC (test code = 789-8) See_Comment [Automated [employer]] The system which generated this result transmitted [...] 34.8 g/dL 31.2-35 RDW-SD (test code = 23507-1) 38.8 fL 38.5-51.6 RDW-CV (test code = 788-0) 11.7 % 12.1-15.4 L PLT (test code = 777-3) See_Comment [Automated messa ge] The system which generated this result transmitted reference range: 150 - 328 10*3/?L. The reference range was not used to interpret this result as normal/abnormal. MPV (test code = 81178-6) 11.8 fL 9.8-13 NRBC/100 WBC (test code = 3264388410) See_Comment [Automated [employer] ssage] The system which generated this result transmitted reference range: 0.0 - 10.0 /100 WBCs. The reference range was not used to interpret this result as normal/abnormal. NRBC x10^3 (test code = 0494543458) See_Comment [Automated messa ge] The system which generated this result transmitted reference range: 10*3/?L. The reference range was not used to interpret this result as normal/abnormal. GRAN MAT (NEUT) % (test code = 770-8) 69.7 % IMM GRAN % (test code = 5520926045) 0.40 % LYMPH % (test code = 736-9) 20.9 % MONO % (test code = 5905-5) 7.8 % EOS % (test code = 713-8) 0.7 % BASO % (test code = 706-2) 0.5 % GRAN MAT x10^3(ANC) (test code = 4236782101) 6.91 10*3/uL 1.99-6.95 IMM GRAN x10^3 (test code = 7294493118) 0.04 10*3/uL 0-0.06 LYMPH x10^3 (test code = 731-0) 2.07 10*3/uL 1.09-3.23 MONO x10^3 (test code = 742-7) 0.77 10*3/uL 0.36-1.02 EOS x10^3 (test code = 711-2) 0.07 10*3/uL 0.06-0.53 BASO x10^3 (test code = 704-7) 0.05 10*3/uL 0.01-0.09 Lab Interpretation (test code = 42644-0) Abnormal [facility]IT[facility] D, 25 [id number] 06:41:19* Test Item Value Reference Range Interpretation [...] . . . . NG/ML 30-100 HEMOGLOBIN [id number] 06:13:33* Test Item Value Reference Range Interpretation Comme [facility] HEMOGLOBIN A1c (test code = 42967) 5.7 % 4.2-5.6 H TSH, THIRD [id number] 06:00:05* Test Item Value Reference Range Interpretation Comme nts TSH, THIRD GENERATION (test code = 2821) 1.470 UIU/ML 0.400-4.100 [id number] 05:59:24* Test Item Value Reference Range Interpretation Comme nts TESTOSTERONE (test code = 2830) 536 NG/DL 300-1080 UNLESS OTHERWISE INDICATED, ALL TESTING PERFORMED [facility] [address] [place] [id number] SEATING AND MOBILITY TECHNOLOGIST: ONIEL WOODSON M.D. CLIA NUMBER [id number] [facility] [place]. [id number] CBC W/AUTO DIFF WITH [id number] 05:32:39* Test Item Value Reference Range Interpretation [...] 0.00-0.10 ABS NUCLEATED RBCS (test code = 93445) 0.00 K/UL 0.00-0.11 COMPREHENSIVE METABOLIC [id number] 03:36:54* Test Item Value Reference Range Interpretation Comme nts GLUCOSE (test code = 2216) 88 MG/DL 70-99 BUN (test code = 2207) 10 MG/DL 6-20 CREATININE (test code = 2213) 0.88 MG/DL 0.80-1.40 eGFR (2020 CKD-EPI) (test code = 41228) 112 ML/MIN/1.73 >60 CALC BUN/CREAT (test code [...] code = 2219) 44 U/L 5-50 LIPID [id number] 03:36:54* Test Item Value Reference Range Interpretation Comme nts CHOLESTEROL (test code = 2210) 226 MG/DL <200 H TRIGLYCERIDES (test code = 223) 105 MG/DL <150 HDL CHOLESTEROL (test code = 2220) 60 MG/DL >39 CALC LDL CHOL (test code = 2236) 144 MG/DL <100 H NOTE: CALCULATED LDL IS BASED ON MEHDI-ALLEN METHOD WHICHINCLUDES ADJUSTABLE TRIGLYCERIDE:VLDL CHOLESTEROL RATIO.THIS FACTOR VARIES BY MEASURED TRIGLYCERIDE AND NON-HDLCHOLESTEROL CONCENTRATIONS WITH INCREASED CALCULATED LDL SEENIN HIGHER TRIGLYCERIDE OR LOWER NON-HDL SPECIMENS. FOR MOREINFORMATION, SEE CLIENT ANNOUNCEMENT AT [email or web address] RISK RATIO LDL/HDL (test code = 2238) 2.40 RATIO <3.55 HEMOGLOBIN [id number] 00:00:00* Test Item Value Reference Range Interpretation Comme nts HEMOGLOBIN A1c (test code = 28987) 5.7 % Castillo SaleemCBC W/AUTO [id number] 00:00:00* Test Item Value Reference Range Interpretation [...] ABS NUCLEATED RBCS (test cod e = 84677) 0.00 K/UL Castillo SaleemCOMPREHENSIVE METABOLIC [id number] 00:00:00* Test Item Value Reference Range Interpretation Comme nts GLUCOSE (test code = 2217) 88 MG/DL BUN (test code = 2208) 10 MG/DL CREATININE (test code = 2214) 0.88 MG/DL eGFR (2020 CKD-EPI) (test code = 91093) 112 ML/MIN/1.73 CALC BUN/CREAT (test code = [...] code = 2219) 44 U/L Castillo SaleemLIPID [id number] 00:00:00* Test Item Value Reference Range Interpretation Comme nts CHOLESTEROL (test code = 2210) 226 MG/DL TRIGLYCERIDES (test code = 2232) 105 MG/DL HDL CHOLESTEROL (test code = 2220) 60 MG/DL CALC LDL CHOL (test code = 2237) 144 MG/DL RISK RATIO LDL/HDL (test cod e = 2238) 2.40 RATIO Castillo [id number] 00:00:00* Test Item Value Reference Range Interpretation Comme nts TSH, THIRD GENERATION (test code = 2821) 1.470 UIU/ML Castillo SaleemVITAMIN D, 25 [id number] 00:00:00* Test Item Value Reference Range Interpretation Comme nts VITAMIN D, 25 [place] (test code = 4958) 15 NG/ML Castillo [id number] 00:00:00* Test Item Value Reference Range Interpretation [...] in no apparent distress, TON Puentes RN [facility] 2024-06-11 19:09:15 Pt states he has been seen here for the same complaint and discharged 2 days, pt states that he has lower abd pain, with nausea and diarrhea. TON Tripp RN [facility]"
[2025-01-28] MEDS ORDERED: MORPHINE 4 MG/ML SYR ONE (01:16)
[2025-01-28] MEDS ORDERED: ONDANSETRON 4 MG/2 ML VIAL ONE (01:16)
[2025-01-28] MEDS ORDERED: NA CHLORIDE 0.9% 1,000 ML ONE (01:17)
[2025-01-28 01:34] LABS: Urine Microscopic Reflex YN NO UMIC
[2025-01-28 01:37] LABS: Absolute Lymphocytes (CBC) 1.9 K/uL (0.7-4.9); Hematocrit 47.4 % (39.6-49.0); Hemoglobin 16.1 g/dL (13.6-17.9); MCH 31.4 pg (27.0-35.0); MCHC 33.9 g/dL (32.0-36.0); MCV 92.6 fL (80-100); MPV 10.0 fL (7.6-11.3); Nucleated RBC Absolute Count 0.0 (0-0); Nucleated Red Blood Cells % 0.1 % (0-0); RBC Red Blood Cell Count 5.12 M/uL (4.33-5.43); White Blood Count 8.10 thou/uL (4.3-10.9)
[2025-01-28 01:47] LABS: ALT/SGPT 67.0 U/L (16-61); AST/SGOT 29.0 U/L (15-37); Albumin 3.9 g/dL (3.4-5.0); Albumin/Globulin Ratio 1.0 (1.1-1.8); Alkaline Phosphatase 141.0 U/L (45-117); Anion Gap 13.8 mEq/L (5.0-15.0); BUN Blood Urea Nitrogen 13.0 mg/dL (7-18); Globulin 3.8 g/dL (2.3-3.5); Glucose Level 85.0 mg/dL (74-106); Lipase 23.0 U/L (13-75); Potassium 3.8 mEq/L (3.5-5.1)
[2025-01-28] MEDS ORDERED: KETOROLAC 30 MG/ML INJ ONE (02:00)
--- NOTE | 2025-01-28 05:05 | EDPHYS ---
Physician Documentation [facility] Name: Yury Jolley Age: 44 yrs Sex: Male : 1980 Arrival Date: 01/28/2025 Time: 00:33 Bed 13 Private MD: ED Physician John Palomo HPI: 01/28 00:55 This 44 yrs old Male presents to ER via Ambulatory with complaints of Flank cp Pain, Abdominal Pain. 00:55 The patient complains of pain in the right upper flank and lateral abdomen. The pain cp radiates to the right mid back. Onset: The symptoms/episode began/occurred yesterday, about 2200. Associated signs and symptoms: Pertinent positives: nausea, Pertinent negatives: diarrhea, dysuria, fever, hematuria, pain radiating to the lower extremities, vomiting. Severity of pain: in the emergency department the pain is unchanged despite home interventions. Historical: - Allergies: 01:29 No Known Allergies; al5 - PMHx: :29 diabetes mellitus; Diverticulitis; Leukemia; Hypertensive disorder; al5 - PSHx: :29 None; al5 - Immunization history:: Adult Immunizations up to date. - Infectious Disease History:: Denies. - Social history:: Smoking status: Reported history of juuling and/or vaping. ROS: 01:00 Constitutional: Negative for body aches, chills, fever, poor PO intake, cp 01:00 Eyes: Negative for injury, pain, redness, and discharge, cp 01:00 ENT: Negative for drainage from ear(s), ear pain, sore throat, difficulty swallowing, difficulty handling secretions, 01:00 Cardiovascular: Negative for chest pain, edema, palpitations, 01:00 Respiratory: Negative for cough, shortness of breath, wheezing, 01:00 Abdomen/GI: Positive for nausea, Negative for vomiting, diarrhea, constipation, anorexia, black/tarry stool, rectal bleeding, 01:00 Back: Positive for flank pain, on the right, Negative for injury or acute deformity, 01:00 : Negative for urinary symptoms, testicular pain 01:00 Neuro: Negative for altered mental status, dizziness, headache, numbness, weakness, 01:00 All other systems are negative, Exam: 01:05 Head/Face: Normocephalic, atraumatic. cp 01:05 Constitutional: The patient appears in no acute distress, alert, awake, non-diaphoretic, non-toxic, well developed, well nourished, uncomfortable, 01:05 Eyes: Periorbital structures: appear normal, Conjunctiva: normal, no exudate, no injection, Sclera: no appreciated abnormality, Lids and lashes: appear normal, bilaterally, 01:05 ENT: External ear(s): are unremarkable, Nose: is normal, Mouth: Lips: moist, Oral mucosa: moist, Posterior pharynx: Airway: no evidence of obstruction, patent, 01:05 Chest/axilla: Inspection: normal, 01:05 Respiratory: the patient does not display signs of respiratory distress, Respirations: normal, no use of accessory muscles, no retractions, labored breathing, is not present, Breath sounds: are clear throughout, no decreased breath sounds, no stridor, no wheezing, 01:05 Abdomen/GI: Inspection: abdomen appears normal, Bowel sounds: active, all quadrants, Palpation: soft, in all quadrants, moderate abdominal tenderness, in the right upper lateral abdomen, 01:05 Back: pain, that is moderate, of the right mid back, ROM is normal, 01:05 Neuro: Orientation: to person, place \T\ time. Mentation: is normal, Motor: moves all fours, strength is normal, 01:05 Cardiovascular: Rate: normal, Rhythm: regular, cp Vital Signs: 01:26 BP 133 / 88; Pulse 90; Resp 16; Temp 98.2(O); Pulse Ox 100% on R/A; Weight 111.13 kg; al5 Height 5 ft. 11 in. ; 01:30 BP 117 / 90; Pulse 88; Resp 16; Pulse Ox 99% on R/A; al5 02:00 BP 126 / 88; Pulse 82; Resp 17; Pulse Ox 100% on R/A; al5 02:30 BP 126 / 90; Pulse 77; Resp 15; Pulse Ox 98% on R/A; al5 03:00 BP 141 / 87; Pulse 75; Resp 16; Pulse Ox 100% on R/A; al5 03:54 BP 145 / 86; Pulse 78; Resp 19; Pulse Ox 100% on R/A; kd3 04:51 BP 148 / 93; Pulse 76; Resp 17; Pulse Ox 98% on R/A; kd3 01:26 Body Mass Index 34.17 (111.13 kg, 180.34 cm) al5 MDM: 00:45 Medical Screening Exam initiated 01:00 Differential diagnosis: nephrolithiasis, pyelonephritis, UTI, diverticulitis, cp pancreatitis. 02:00 I considered the following discharge prescriptions or medication management in the emergency department Medications were administered in the Emergency Department. See MAR. Transition of care: After a detail discussion of the patient's case, care is transferred to John Palomo MD. 02:00 Awaiting: CT scan results. 05:04 Data reviewed: vital signs, nurses notes, lab test result(s), radiologic studies. ED sp3 course: Patient taken over by me from [facility] at change of shift. 44-year-old male with right and left-sided lower abdominal pain. History of nephrolithiasis. Blood work all normal except for mild bump in AST. CT scan demonstrates bilateral nephrolithiasis without anything in the ureters. Possible early sigmoid diverticulitis also noted. We will go ahead and treat with p.o. antibiotics and pain control and follow-up with PCP.. 01/28 00:48 Order name: UA Rfx Akin Cult if indicated; Complete Time: 01:48 01/28 01:48 Interpretation: Reviewed. 01/28 01:03 Order name: CBC with Diff; Complete Time: 01:48 01/28 01:03 Order name: CMP; Complete Time: 01:48 01/28 01:48 Interpretation: Normal except: ALT 67; ALK 141; GLOB 3.8; A/G 1.0. 01/28 01:03 Order name: Lipase; Complete Time: 01:48 01/28 02:26 Order name: Abdomen EDMS 01/28 01:03 Order name: IV Saline Lock; Complete Time: 01:28 01/28 01:03 Order name: Labs collected and sent; Complete Time: :28 Administered Medications: 01:28 Drug: Ondansetron IVP 4 mg IVP once; over 2 minutes Route: IVP; Site: right wrist; ha1 03:31 Follow up: Response: No adverse reaction; Nausea is decreased al5 01:28 Drug: NS 0.9% IV 1000 ml IV at 1 bolus Per protocol; to be given as a bolus over 60 ha1 minutes Route: IV; Rate: 1 bolus; Site: right wrist; 05:20 Follow up: IV Status: Completed infusion; IV Intake: 1000ml kd3 01:30 Drug: morphine IVP or IV 4 mg IVP once over 4 mins Route: IVP; Infused Over: 4 mins; ha1 Site: right wrist; 03:31 Follow up: Response: No adverse reaction; Pain is decreased al5 02:03 Drug: Ketorolac IVP 15 mg IVP once Route: IVP; Site: right forearm; al5 03:31 Follow up: Response: No adverse reaction; Pain is decreased al5 Disposition Summary: 01/28/25 05:05 Discharge Ordered Notes: Location: Home sp3 Condition: Stable sp3 Diagnosis - Diverticulitis, abdominal pain sp3 Followup: sp3 - With: Private Physician - When: Upon discharge from the Emergency Department - Reason: Continuance of care Discharge Instructions: - Discharge Summary Sheet sp3 - Diverticulitis sp3 Forms: - Medication Reconciliation Form sp3 - Antibiotic Education sp3 - Prescription Opioid Use sp3 - Patient Portal Instructions sp3 - Leadership Thank You Letter sp3 Prescriptions: - Cipro 500 mg Oral tablet - take 1 tablet ORAL route every 12 hours for 7 days; 14 tablet; Refills: 0, sp3 Product Selection Permitted - Flagyl 500 mg Oral tablet - take 1 tablet ORAL route every 8 hours for 7 days; 21 tablet; Refills: 0, sp3 Product Selection Permitted - Tramadol 50 mg Oral Tablet - take 1 tablet ORAL route every 8 hours as needed; 12 tablet; Refills: 0, sp3 Product Selection Permitted Signatures: Dispatcher [employer] EDNJ Ernesto Vela PA-C PAJohn Chaudhry cp, MD MD sp3 Martha Velazco RN RN ha1 China Rodriguez RN RN al5 Maryse Man RN kd3 Corrections: (The following items were deleted from the chart) 01:04 01:04 CBC+H.LAB.BRZ ordered. EDMS EDMS 01:04 01:04 COMPREHENSIVE METABOLIC PANEL+C.LAB.BRZ ordered. EDMS EDMS 01:04 01:04 LIPASE+C.LAB.BRZ ordered. EDMS EDMS 01:48 01:48 Abdomen Pelvis W/Wo Con+CT.RAD.BRZ ordered. EDMS EDMS 02:01/27 01:05 Constitutional: The patient appears in no acute distress, alert, awake, cp non-diaphoretic, non-toxic, well developed, well nourished, uncomfortable, cp 01/28 02:01/27 01:05 Head/Face: Normocephalic, atraumatic. cp 01/28 02:01/27 01:05 Eyes: Periorbital structures: appear normal, Conjunctiva: normal, no cp exudate, no injection, Sclera: no appreciated abnormality, Lids and lashes: appear normal, bilaterally, cp 01/28 02:01/27 01:05 ENT: External ear(s): are unremarkable, Nose: is normal, Mouth: Lips: cp moist, Oral mucosa: moist, Posterior pharynx: Airway: no evidence of obstruction, patent, cp 01/28 02:01/27 01:05 Chest/axilla: Inspection: normal, cp 01/28 02:01/27 01:05 Cardiovascular: Rate: normal, Rhythm: regular, cp 01/28 02:01/27 01:05 Respiratory: the patient does not display signs of respiratory distress, cp Respirations: normal, no use of accessory muscles, no retractions, labored breathing, is not present, Breath sounds: are clear throughout, no decreased breath sounds, no stridor, no wheezing, 01/28 02:01/27 01:05 Abdomen/GI: Inspection: abdomen appears normal, Bowel sounds: active, all cp quadrants, Palpation: soft, in all quadrants, moderate abdominal tenderness, in the right upper lateral abdomen, 01/28 02:01/27 01:05 Back: pain, that is moderate, of the right mid back, ROM is normal, cp 01/28 02:01/27 01:05 Neuro: Orientation: to person, place \T\ time. Mentation: is normal, Motor: cp moves all fours, strength is normal, cp
--- NOTE | 2025-01-28 05:05 | ER ---
Nurse's Notes [facility] Name: Yury Jolley Age: 44 yrs Sex: Male : 1980 Arrival Date: 01/28/2025 Time: 00:33 Bed 13 Private MD: Diagnosis: Diverticulitis, abdominal pain Presentation: 01/28 01:26 Chief complaint: Patient states: c/o R upper and lower quadrant pain radiating to the R al5 side and R flank pain along with nausea x4 hours. Coronavirus screen: At this time, the client does not indicate any symptoms associated with coronavirus-19. Ebola Screen: No symptoms or risks identified at this time. Initial Sepsis Screen: Does the patient meet any 2 criteria? HR > 90 bpm. No. Patient's initial sepsis screen is negative. Does the patient have a suspected source of infection? No. Patient's initial sepsis screen is negative. Risk Assessment: Do you want to hurt yourself or someone else? Patient reports no desire to harm self or others. Onset of symptoms was January 27, 2025. 01: Method Of Arrival: Ambulatory al5 01: Acuity: ELIER 3 al5 Triage Assessment: : General: Appears in no apparent distress. uncomfortable, Behavior is calm, cooperative. al5 Pain: Complains of pain in anterior aspect of right lateral abdomen, posterior aspect of right lateral abdomen, right upper quadrant and right lower quadrant Pain radiates to right mid back. EENT: No signs and/or symptoms were reported regarding the EENT system. Neuro: Level of Consciousness is awake, alert, obeys commands, Oriented to person, place, time, situation. Cardiovascular: Capillary refill < 3 seconds Patient's skin is warm and dry. Respiratory: Airway is patent Respiratory effort is even, unlabored, Respiratory pattern is regular, symmetrical. GI: Abdomen is non-distended, Reports lower abdominal pain, upper abdominal pain, nausea. : No signs and/or symptoms were reported regarding the genitourinary system. Derm: Skin is intact, is healthy with good turgor, Skin is pink, warm \T\ dry. normal. Musculoskeletal: Circulation, motion, and sensation intact. Range of motion: intact in all extremities. Historical: - Allergies: No Known Allergies; al5 - PMHx: 01:29 diabetes mellitus; Diverticulitis; Leukemia; Hypertensive disorder; al5 - PSHx: 01:29 None; al5 - Immunization history:: Adult Immunizations up to date. - Infectious Disease History:: Denies. - Social history:: Smoking status: Reported history of juuling and/or vaping. Screenin:30 [facility] ED Fall Risk Assessment (Adult) History of falling in the last 3 months, al5 including since admission No falls in past 3 months (0 pts) Confusion or Disorientation No (0 pts) Intoxicated or Sedated No (0 pts) Impaired Gait No (0 pts) Mobility Assist Device Used No (0 pt) Altered Elimination No (0 pt) Score/Fall Risk Level 0 - 2 = Low Risk Oriented to surroundings, Maintained a safe environment, Hourly rounding (assess needs \T\ fall precautionary measures) done. Abuse screen: Denies threats or abuse. Denies injuries from another. Nutritional screening: No deficits noted. Tuberculosis screening: No symptoms or risk factors identified. Assessment: 01:30 Reassessment: see triage assessment. al5 01:30 GI: Bowel sounds present X 4 quads. Abd is soft X 4 quads Abdomen is tender to al5 palpation in anterior aspect of right lateral abdomen, posterior aspect of right lateral abdomen, right upper quadrant and right lower quadrant. 03:32 Reassessment: Patient appears in no apparent distress at this time. No changes from al5 previously documented assessment. Patient and/or family updated on plan of care and expected duration. Pain level reassessed. Patient is alert, oriented x 3, equal unlabored respirations, skin warm/dry/pink. 04:51 General: Appears in no apparent distress. Behavior is calm, cooperative. Neuro: Level kd3 of Consciousness is awake, alert, obeys commands, Oriented to person, place, time, situation. Cardiovascular: Capillary refill < 3 seconds Patient's skin is warm and dry. Respiratory: Airway is patent Trachea midline Respiratory effort is even, unlabored, Respiratory pattern is regular, symmetrical. Vital Signs: 01:26 BP 133 / 88; Pulse 90; Resp 16; Temp 98.2(O); Pulse Ox 100% on R/A; Weight 111.13 kg; al5 Height 5 ft. 11 in. ; 01:30 BP 117 / 90; Pulse 88; Resp 16; Pulse Ox 99% on R/A; al5 02:00 BP 126 / 88; Pulse 82; Resp 17; Pulse Ox 100% on R/A; al5 02:30 BP 126 / 90; Pulse 77; Resp 15; Pulse Ox 98% on R/A; al5 03:00 BP 141 / 87; Pulse 75; Resp 16; Pulse Ox 100% on R/A; al5 03:54 BP 145 / 86; Pulse 78; Resp 19; Pulse Ox 100% on R/A; kd3 04:51 BP 148 / 93; Pulse 76; Resp 17; Pulse Ox 98% on R/A; kd3 01:26 Body Mass Index 34.17 (111.13 kg, 180.34 cm) al5 ED Course: 00:40 Patient arrived in ED. gm2 00:41 Ernesto Vela PA-C is PHCP. cp 00:41 John Palomo MD is Attending Physician. cp 01:11 Maryse Man, KENYA is Primary Nurse. kd3 01:22 Inserted saline lock: 22 gauge in right forearm, using aseptic technique. Blood kd3 collected. Flushed with 10 mL NS. 01:28 Triage completed. al5 01:28 CBC with Diff Sent. kd3 01:28 CMP Sent. kd3 01:28 Lipase Sent. kd3 01:28 UA Rfx Akin Cult if indicated Sent. kd3 01:29 Arm band placed on right wrist. Patient placed in the treatment room, in view of staff al5 members, on pulse oximetry. 01:30 No provider procedures requiring assistance completed. al5 01:30 Patient has correct armband on for positive identification. Bed in low position. Call al5 light in reach. Side rails up X 1. Provided Education on: plan of care. 02:26 Abdomen In Process Unspecified. EDMS 05:20 IV discontinued, intact, bleeding controlled, No redness/swelling at site. Pressure kd3 dressing applied. Administered Medications: 01:28 Drug: Ondansetron IVP 4 mg IVP once; over 2 minutes Route: IVP; Site: right wrist; ha1 03:31 Follow up: Response: No adverse reaction; Nausea is decreased al5 01:28 Drug: NS 0.9% IV 1000 ml IV at 1 bolus Per protocol; to be given as a bolus over 60 ha1 minutes Route: IV; Rate: 1 bolus; Site: right wrist; 05:20 Follow up: IV Status: Completed infusion; IV Intake: 1000ml kd3 01:30 Drug: morphine IVP or IV 4 mg IVP once over 4 mins Route: IVP; Infused Over: 4 mins; ha1 Site: right wrist; 03:31 Follow up: Response: No adverse reaction; Pain is decreased al5 02:03 Drug: Ketorolac IVP 15 mg IVP once Route: IVP; Site: right forearm; al5 03:31 Follow up: Response: No adverse reaction; Pain is decreased al5 Medication: 01:30 VIS not applicable for this client. al5 Intake: 05:20 IV: 1000ml; Total: 1000ml. kd3 Outcome: 05:05 Discharge ordered by . sp3 05:20 Discharged to home ambulatory, kd3 05:20 Condition: stable 05:20 Discharge instructions given to patient, Instructed on discharge instructions, follow up and referral plans. medication usage, Demonstrated understanding of instructions, follow-up care, medications, Prescriptions given X 3, 05:21 Patient left the ED. kd3 Signatures: Dispatcher [employer] EDMS Ernesto Vela PA-C PA-C cp Patel, Setul, MD MD sp3 Maryse Man RN RN kd3 Martha Velazco RN RN ha1 Karla Mcfarland 2 China Rodriguez RN RN al5 Corrections: (The following items were deleted from the chart) 01:32 01:26 BP 133 / 88; Pulse 90bpm; Resp 16bpm; Pulse Ox 100% RA; al5 al5 01:58 01:26 BP 133 / 88; Pulse 90bpm; Resp 16bpm; Pulse Ox 100% RA; 111.13 kg; Height 5 ft. al5 11 in.; BMI: 34.1; al5 02:03 02:03 Ketorolac IVP 15 mg IVP in right wrist al5 al5
[2025-01-28 05:25] VITALS: TEMP 98.2
[2025-01-28 05:35] VITALS: BP 148/93; O2SAT 98
--- NOTE | 2025-01-30 07:07 | RAD REPORT ---
EXAM DESCRIPTION: Abdomen Pelvis W Contrast RadLex: CT ABDOMEN PELVIS WITH IV CONTRAST CLINICAL HISTORY: 44 years Male; right upper abdomen/flank pain; Bed Name: 13 TECHNIQUE: CT of the abdomen and pelvis [with] intravenous contrast. All CT scans at this facility use dose modulation, iterative reconstruction, and/or weight based dosi ng when appropriate to reduce radiation dose to as low as reasonably achievable. COMPARISON: CT abdomen pelvis 12/30/2024. FINDINGS: Lower thorax: Lung bases are clear Abdomen: Stomach: Within normal limits Liver: No focal lesions. Hepatic steatosis. No intrahepatic ductal distention. Gallbladder: Nondistended Pancreas: Within normal limits Spleen: Within normal limits Right kidney: No hydronephrosis. Multiple renal stones measuring up to 3 mm. Left kidney: No hydronephrosis. Multiple renal stones measuring up to 3 mm Adrenal glands: Within normal limits Vascular structures: Within normal limits Nodes: No lymphadenopathy by size criteria Pelvis: Small bowel: No significant distention. Appendix: Within normal limits Colon: Sigmoid colonic diverticulosis with questionable mild pericolonic stranding. Peritoneum: No free intraperitoneal fluid or air. Bones: No acute bone findings. Bladder: Unremarkable. Reproductive organs: No acute findings. IMPRESSION: 1. Sigmoid colonic diverticulosis with questionable mild pericolonic stranding, could represent ear ly acute diverticulitis. 2. Bilateral nephrolithiasis. No hydronephrosis. 3. Hepatic steatosis. Electronically signed by: Jennifer Rangel MD 01/28/2025 04:44 AM CDT RP TYG Due to temporary technical issues with the [employer] reporting system, reports are being momo d by the in-house radiologist without review as a courtesy to ensure prompt reporting the interpreting radiologist is fully responsible for the content of the report. Transcribed Date/Time: 01/30/2025 7:06 AM
== END 2025-01-28 05:21 | disposition home or self-care (01) ==
LOC: ER 00:33
DX: K57.32 Diverticulitis of large intestine without perforation or abscess without bleeding (principal)
CPT/HCPCS: 85025; 36415; 81003; 83690; 80053; 74177; 99284; Q9967; J2405; J7030; J1885

== ENCOUNTER 2025-02-21 00:44 | Observation (INO) | payer OTHER ==
--- OUTSIDE RECORDS SUMMARY | 2025-02-21 00:51 | XMS REPORT | Continuity of Care Document ---
Author Name Unknown Address [address] [place] [address] [facility] Address [address] [place] [address] Care Team Providers Care Senior Web Developer Name Role Phone NONE, NONE Primary Care Physician UnavailGraham Morrissey Attending Clinician Unavailable DR ZACHARY HOLT Attending Clinician DR ZACHARY Guerin Attending Clinician Lizeth Michelle Attending Clinician Unavailable Lizeth RAMON Attending Clinician Unavailable Lizeth Brock Attending Clinician [phone] Ellie Tong LVN Attending Clinician [phone] YOEL CEBALLOS Attending Clinician Unavailable Zainab Echavraria NP Attending Clinician [phone] Yoel Ceballos MD Attending Clinician [phone] Doctor Unassigned, [place] Attending Clinician U DR ZACHARY Mckoy Admitting Clinician Lizeth Michelle Admitting Clinician Unavailable YOEL CEBALLOS Admitting Clinician Unavailable Yoel Ceballos MD Admitting Clinician Payers Payer Name Policy Type Policy Number Effective Date Expirati on Date Source 0111 [id number] 2024 00:00:00 [facility]EVEN LO[facility] [id number] 2024 00:00:00 Problems Condition Name Condition Details Condition Category Status Onset Date Resolution Date Last Treatment Date Treating Clinician Comments Source Obesity (BMI 30-39.9) Obesity (BMI 30-39.9) Disease Active 2021-05 00:00: 00 [facility] [id number] Mood disorder Problem [facility] [id number] Plantar wart Problem [facility] Diverticul ar disease of colon Diverticul ar disease of large intestine without perforatio n or abscess Problem [facility] [id number] Diverticul itis Problem [facility] [id number] Type 2 diabetes mellitus with hyperglyce juan, without long-term current use of insulin Problem [facility] [id number] Essential hypertensi on Problem [facility] [id number] Adult ADHD Problem Com mon [facility] Vitamin B>12< deficiency anaemia Other vitamin B12 deficiency anemias Problem [facility] Iron deficiency anemia Other iron deficiency anemia Problem [facility] Chronic lymphoid leukemia, 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 No Known Drug Allergie s DA Active [facility] Social History Social Habit Start Date Stop Date Quantity Comments Source Sex Assigned At [facility] Sexual orientation U [facility] History of Social function 2024-06-11 00:00:00 2024-06-11 00:00:00 [facility] Exposure to SARS-CoV-2 (event) 2022-01-24 00:00:00 2022-02-03 00:21:00 Not sure [facility] Tobacco use and exposure 2022-02-03 00:00:00 2022-02-03 00:00:00 Smokeless tobacco non-user [facility] History of Tobacco Use 2015-05-04 00:00:00 [facility] Smoking Status Start Date Stop Date Source Tobacco smoking consumption unknown [facility] Former Smoker 2024-11-26 00:00:00 2024-11-26 00:00:00 [facility] Smokes tobacco daily 2022-02-03 00:00:00 [facility] Medications Ordered Medication Name Filled Medication Name [...] 1 dose, On Fri06/11/24 at 2145, STAT [facility] iopamidol (ISOVUE 370-500 mL) injection 100 mL 06-12 03:00: 00 06-12 03:00 :00 No [id number] 100mL 100 mL, Intravenou s, ONCE, 1 dose, On Fri06/11/24 at 2100, Routine [facility] ondansetron (ZOFRAN (PF)) injection 4 mg 06-12 02:30: 00 06-12 02:20 :00 No 4mg 4 mg, Slow IV Push, ONCE, 1 dose, On Fri06/11/24 at 2030, 2 mL [facility] morpHINE (4 mg/mL) injection 4 mg 06-12 01:30: 00 06-12 02:21 :00 No 4mg 4 mg, Slow IV Push, ONCE, 1 dose, On Fri06/11/24 at 1930, STAT [facility] Cipro 500 mg tablet 2023-05 00:00: 00 Yes 1mg Castillo Alaina Saleem metronidazo le 500 mg tablet 2023-05 00:00: 00 Yes 1mg Castillo Alaina Saleem Tylenol Extra Strength 500 mg tablet 2023-05 00:00: 00 Yes 12mg Castillo Alaina Saleem TAKE 1 TABLET AT BEDTIME NEEDED. 05-12 00:00: 00 08-17 00:00 :00 No 50 Castillo Aalina Saleem TAKE 1 TABLET DAILY. 05-12 00:00: 00 08-17 00:00 :00 No 50 Castillo Alaina Saleem TAKE 1/2 TABLET AT BEDTIME. 2022-05 00:00: 00 08-17 00:00 :00 No 50 Castillo Alaina Saleem TAKE 1 TABLET DAILY. 2022-05 00:00: 00 08-17 00:00 :00 No 50 Castillo Alaina Saleem TAKE 1 TO 2 TABLETS AT BEDTIME 2022-05 00:00: 00 08-17 00:00 :00 No 25 Castillo Alaina Saleem TAKE 1 TABLET DAILY. 2022-05 00:00: 00 08-17 00:00 :00 No 25 Castillo F Stiven APPLY SPARINGLY TO AFFECTED AREA(S) TWICE DAILY 08-26 00:00: 00 08-17 00:00 :00 No 2 Castillo Alaina Saleem TAKE 1 TABLET TWICE DAILY WITH FOOD. 08-26 00:00: 00 08-17 00:00 :00 No [id number] Castillo Alaina Saleem TAKE 1 TABLET DAILY [...] Abdominal< br>Duratio n of therapy: [address] [facility] TAKE ONE (1) TABLET(S) BY MOUTH EVERY MORNING AND EVENING FOR 7 DAYS. 2021-05 00:00: 00 08-17 00:00 :00 No Castillo Saleem acidophilus 100 million cell tablet 2021-05 0 00:00: 00 03-09 04:59 :00 No [id number] 1g Take 1 tablet by mouth in the morning and 1 tablet in the evening. Do all this for [address] [facility] amoxicillin -clavulanat e (AUGMENTIN) 875-125 mg per tablet 2021-05 0 00:00: 00 02-14 04:59 :00 No [id number] 1{tbl} Take 1 tablet by mouth in the morning and 1 tablet in the evening. Do all this for [address] [facility] iopamidol (ISOVUE 370-500 mL) injection 60 mL 2021-05 0 14:20: 00 02-05 14:21 :00 No [id number] 60mL 60 mL, Intravenou s, ONCE, 1 dose, On Fri02/05/22 at 0930, Routine [facility] enoxaparin (LOVENOX) injection 40 mg 2021-05 0 22:00: 00 Yes 40mg 40 mg, Subcutaneo us, DAILY, First dose on Fri02/03/22 at 1700, Until Discontinu ed, Routine [facility] piperacilli n-tazobacta m (ZOSYN) 3.375 g [...] br>Duratio n of therapy: 72 hours [facility] acetaminoph en (TYLENOL) tablet 650 mg 2021-05 14:08: 38 Yes 650mg 650 mg, Oral, Q6HPRN, Starting on Fri02/03/22 at 0908, Until Discontinu ed, Routine, Pain (scale 4-6) [facility] NaCl 0.9% (NS) IV infusion 1,000 mL 2021-05 10:15: 00 Yes 1000mL at 100 mL/hr, IV Infusion, CONTINUOUS , Starting on Fri02/03/22 at 0515, Until Discontinu ed, Routine [facility] ondansetron (ZOFRAN (PF)) injection 4 mg 2021-05 10:13: 17 Yes 4mg 4 mg, Slow IV Push, Q6HPRN, Starting on Fri02/03/22 at 0513, Until Discontinu ed, Routine, Nausea and Vomiting (N/V) [facility] iopamidol (ISOVUE 370-500 mL) injection 100 mL 2021-05 08:30: 00 02-03 07:37 :00 No [id number] 100mL 100 mL, Intravenou s, ONCE, 1 dose, On Fri02/03/22 at 0330, Routine [facility] piperacilli n-tazobacta m (ZOSYN) 3.375 g in NaCl 0.9% (NS) 50 mL MINI-BAG 2021-05 08:15: 00 02-03 08:56 :00 No 3.375g 3.375 g, IV Piggyback, ONCE, 1 dose, On 02/03/22 at 0315, Administer over 30 Minutes, 50 mL
Reas on for Anti-Infec tive: Empiric Therapy for Suspected Infection< br>Empiric Therapy Site: Abdominal< br>Duratio n of therapy: 72 hours [facility] ketorolac (TORADOL) injection 30 mg 2021-05 06:45: 00 02-03 06:02 :00 No 30mg 30 mg, Slow IV Push, ONCE, 1 dose, On 02/03/22 at 0145, Routine [facility] Vitamin D2 1,250 mcg (50,000 unit) [...] height 2024-11-26 09:00:00 70 [in_i] Commo n [facility] weight 2024-11-26 09:00:00 245.0 [lb_av] Co mmon [facility] temperature 2024-11-26 09:00:00 97.3 [degF] Com mon [facility] bmi 2024-11-26 09:00:00 35.15 kg/m2 Comm on [facility] oximetry 2024-11-26 09:00:00 97 % Commo n [facility] blood pressure systolic 2024-11-26 09:00:00 126 mm[Hg] Common [facility] blood pressure diastolic 2024-11-26 09:00:00 80 mm[Hg] Common [facility] height 2024-07-14 09:45:00 70 [in_i] Commo n [facility] weight 2024-07-14 09:45:00 242.6 [lb_av] Co mmon [facility] temperature 2024-07-14 09:45:00 98.1 [degF] Com mon [facility] bmi 2024-07-14 09:45:00 34.81 kg/m2 Comm on [facility] oximetry 2024-07-14 09:45:00 98 % Commo n [facility] respiratory rate 2024-07-14 09:45:00 16 /min [facility] blood pressure systolic 2024-07-14 09:45:00 138 mm[Hg] [facility] blood pressure diastolic 2024-07-14 09:45:00 82 mm[Hg] [facility] Weight 2024-06-26 23:00:00 106.8 KG Weight 2024-06-26 23:00:00 106.8 KG Weight 2024-06-26 23:00:00 106.8 KG Systolic blood pressure 2024-06-12 04:45:00 133 mm[Hg] [facility] Diastolic blood pressure 2024-06-12 04:45:00 92 mm[Hg] [facility] Heart rate 2024-06-12 04:45:00 74 /min [facility] Body temperature 2024-06-12 04:45:00 36.61 Jessica [facility] Respiratory rate 2024-06-12 04:45:00 20 /min [facility] Oxygen saturation in Arterial blood by Pulse oximetry 2024-06-12 04:45:00 99 /min [facility] Body height 2024-06-12 01:11:00 177.8 cm [facility] Body weight 2024-06-12 01:11:00 108.863 kg [facility] BMI 2024-06-12 01:11:00 34.44 kg/m2 [facility] Systolic blood pressure 2022-02-06 18:27:00 141 mm[Hg] [facility] Diastolic blood pressure 2022-02-06 18:27:00 92 mm[Hg] [facility] Heart rate 2022-02-06 18:27:00 68 /min [facility] Body temperature 2022-02-06 18:27:00 36.44 Jessica [facility] Respiratory rate 2022-02-06 18:27:00 16 /min [facility] Oxygen saturation in Arterial blood by Pulse oximetry 2022-02-06 18:27:00 100 /min [facility] Body weight 2022-02-06 08:06:00 99.111 kg [facility] BMI 2022-02-06 08:06:00 33.22 kg/m2 [facility] Body height 2022-02-03 09:45:00 172.7 cm [facility] BP Systolic 2024-02-09 10:19:00 146 [...] Systolic 2022-08-12 08:58:00 160 mm[Hg] Step hen Alaina Saleem BP Diastolic 2022-08-12 08:58:00 91 mm[Hg] Dereje [...] Respiratory Rate 2021-11-07 11:28:00 17.00 /min Castillo Saleme Procedures Procedure Date / Time Performed Performing Clinicia n Source CT ABDOMEN PELVIS W CONTRAST 2024-06-12 02:14:50 Lizeth Ramon [facility] URINALYSIS 2024-06-12 01:59:00 Lizeth Ramon [facility] LIPASE 2024-06-12 01:58:00 Lizeth Ramon [facility] MAGNESIUM 2024-06-12 01:58:00 Lizeth Ramon [facility] TROPONIN I 2024-06-12 01:58:00 Lizeth Ramon [facility] COMP. METABOLIC PANEL (47384) 2024-06-12 01:58:00 Lizeth Ramon [facility] CBC WITH DIFF 2024-06-12 01:58:00 Lizeth Ramon [facility] BASIC METABOLIC PANEL (NA, K, CL, CO2, GLUCOSE, BUN, CREATININE, CA) 2022-02-06 09:21:[facility] 2022-02-06 09:21:00 Shellie Roldan [facility] URINALYSIS 2022-02-05 21:57:00 Radha Clement [facility] CT ABDOMEN PELVIS W CONTRAST 2022-02-05 14:25:48 Lori Bansal [facility] BASIC METABOLIC PANEL (NA, K, CL, CO2, GLUCOSE, BUN, CREATININE, CA) 2022-02-05 09:04:00 Shellie Roldan [facility] CBC WITH DIFF 2022-02-05 09:04:00 Jamar [facility] BASIC METABOLIC PANEL (NA, K, CL, CO2, GLUCOSE, BUN, CREATININE, CA) 2022-02-04 07:48:[address] [facility] CBC WITH DIFF 2022-02-04 07:48:00 Lin [facility] CT ABDOMEN PELVIS W CONTRAST 2022-02-03 07:36:00 Zainab Echavarria [facility] LIPASE 2022-02-03 05:55:00 Zainab Echavarria [facility] COMP. METABOLIC PANEL ([id number]) 2022-02-03 05:55:00 Zainab Echavarria [facility] CBC WITH DIFF 2022-02-03 05:55:00 Zainab Echavarria [facility] URINALYSIS 2022-02-03 05:55:00 Zainab Echavarria [facility] NOTICE OF PRIVACY PRACTICES 2022-02-03 05:18:05 Doctor Unassigned, [place] [facility] Encounters Start Date/Time End Date/Time Encounter Type Admission Type Attending [facility] Care Facility Care Department Encounter ID Source 2024-07-14 09:23:01 Outpatient Graham Payne [facility] [id number] [facility] 2024-11-26 00:00:00 2024-11-26 00:00:00 OFFICE VISIT ESTAB PT LEVEL 4 STLMLC STLMLC [id number] [facility] 2024-10-15 00:00:00 2024-10-15 00:00:00 OFFICE VISIT ESTAB PT LEVEL 4 STLMLC STLMLC [id number] [facility] 2024-09-14 00:00:00 2024-09-14 00:00:00 OFFICE VISIT ESTAB PT LEVEL 4 STLMLC STLMLC [id number] [facility] 2024-09-09 00:00:00 2024-09-09 00:00:00 (TEL) STLMLC STLMLC [id number] [facility] 2024-07-14 00:00:00 2024-07-14 00:00:00 OFFICE VISIT ESTAB PT LEVEL 4 STLMLC STLMLC [id number] [facility] 2024-06-26 22:58:00 2024-06-27 01:23:00 Outpatient OMCDOCS OMCDOCS [id number] [facility] 2024-06-26 22:58:00 2024-06-27 01:23:00 Emergency E ZACHARY HOLT [facility] [id number] [facility] 2024-06-26 22:58:00 2024-06-27 01:23:00 Emergency E ZACHARY HOLT [facility] [id number] [facility] 2024-06-11 19:11:00 2024-06-11 22:51:00 Emergency X Lizeth RAMON K [facility] ERT [id number] [facility] 2024-06-11 19:11:00 2024-06-11 22:51:00 Emergency Lizeth Ramon [facility] [id number] [facility] 2024-02-19 10:09:08 2024-02-19 10:09:08 Outpatient SFA SFA [id number] Castillo Saleem 2024-02-09 10:13:25 2024-02-09 10:13:25 Outpatient SFA SFA [id number] Castillo Saleem 2024-02-09 00:00:00 2024-02-09 00:00:00 Outpatient Visit SFA [id number] Castillo Saleem 2024-02-06 16:43:26 2024-02-06 16:43:26 Outpatient SFA SFA [id number] Castillo Saleem 2023-05-27 11:11:01 2023-05-27 11:11:01 Outpatient SFA SFA [id number] Castillo Saleem 2023-04-16 09:59:08 2023-04-16 09:59:08 Outpatient SFA SFA [id number] Castillo Saleem 2023-03-25 16:22:46 2023-03-25 16:22:46 Outpatient SFA SFA [id number] Castillo Saleem 2022-09-18 09:13:49 2022-09-18 09:13:49 Outpatient SFA SFA [id number] Castillo Saleem 2022-09-09 08:13:12 2022-09-09 08:13:12 Outpatient SFA SFA [id number] Castillo Saleem 2022-08-19 09:34:13 2022-08-19 09:34:13 Outpatient SFA SFA [id number] Castillo Saleem 2022-08-12 08:47:37 2022-08-12 08:47:37 Outpatient SFA SFA [id number] Castillo Saleem 2022-02-07 00:00:00 2022-02-07 00:00:00 Transition of Care Ellie Tong [id number] [facility] 2022-02-03 00:25:00 2022-02-06 16:35:00 [facility] YANG [id number] [facility] 2022-02-03 00:25:00 2022-02-06 16:35:00 Hospital Encounter Zainab Echavarria [facility] [id number] [facility] 2019-12-22 00:00:00 2019-12-22 00:00:00 Patient Secure Msg Doctor Unassigned, [place] [facility] [id number] [id number] [facility] Results Test Description Test Time Test Comments Results Result Co mments Source LIPASE [id number] 23:54:00* Test Item Value Reference Range Interpretation Comme nts LIPASE (test code = 60A) 35 IU/L 12-53 COMPREHENSIVE METABOLIC [id number] 23:54:00* Test Item Value Reference Range Interpretation Comme [facility] GLUCOSE (test code = 06D) 96 mg/dL [...] code = 31A) 60 IU/L 10-49 H [id number] 23:54:00* Test Item Value Reference Range Interpretation [...] RBC MORPH (test code = RBCMOR) NORMAL [id number] 23:42:00* Test Item Value Reference Range Interpretation [...] LEUK) NEGATIVE NEGATIVE CT Abdomen pelvis w [id number] 02:19:01EXAM: CT ABDOMEN PELVIS W CONTRAST ORDERING [...] the pelvis and hips are unchanged from 202 andlikely represent bone islands. Mild spondylotic changes are present[facility] WITH PLATELETS 2024-02-10 12:16:09* Test [...] = 1065) 0.0 /100 WBC'S See_Comment [Automated AudioBetaa ge] The system which generated this result [...] 0.00-0.10 ABS NUCLEATED RBCS (test code = 55747) 0.00 K/UL 0.00-0.11 COMPREHENSIVE METABOLIC [id number] 06:54:38* Test Item Value Reference Range Interpretation Comme nts GLUCOSE (test code = 2217) 92 MG/DL 70-99 BUN (test code = 2208) 18 MG/DL 6-20 CREATININE (test code = 2214) 0.93 MG/DL 0.80-1.40 eGFR (2020 CKD-EPI) (test code = 46088) 105 ML/MIN/1.73 >60 CALC BUN/CREAT (test code = 2235) 19 RATIO 6-28 SODIUM (test code = 2231) 142 MEQ/L 133-146 POTASSIUM (test code = 2228) 4.5 MEQ/L 3.5-5.4 CHLORIDE (test code = 2215) 104 MEQ/L 95-107 CARBON DIOXIDE (test code = 220) 23 MEQ/L 19-31 CALCIUM (test code = 220) 9.7 MG/DL 8.5-10.5 PROTEIN, TOTAL (test code [...] INDICATED, ALL TESTING PERFORMED AT [facility] [address] [place] [address] STROBOROMA OPERATOR: JEANNIE HAYDEN M.D. CLIA NUMBER [id number] [place]. [id number] CULTURE, [id number] 10:26:47SPECIMEN NUMBER: [id number] CULTURE, URINE SPECIMEN NUMBER: [id number] SPECIMEN COMMENT: URINE SOURCE: URINE REPORT STATUS: FINAL FINAL REPORT: 09/11/2022 NO GROWTH AFTER 36 HOURS INCUBATIONCULTURE, URINE 2022-09-11 00:00:00* Test Item Value Reference Range Interpretation Comme nts CULTURE, URINE (test code = 90763) SPECIMEN NUMBER: [id number] Castillo Foley AustinCT/NG, NAAT, [id number] 16:05:23* Test Item Value Reference Range Interpretation Comme nts CHLAMYDIA, NAAT, URINE (test code = 65543) NEGATIVE NEGATIVE Assay methodolog y is nucleic acid amplification by transcriptionmediated amplification (TMA) utilizing the Aptima Combo 2 Assay. A negative result does not exclude low level infection, specimensampling error, or collection error. GONORRHEA, NAAT, URINE (test code = 79549) NEGATIVE NEGATIVE Assay methodolog y is nucleic acid amplification by transcriptionmediated amplification (TMA) utilizing the Aptima Combo 2 Assay. A negative result does not exclude low level infection, specimensampling error, or collection error. UNLESS OTHERWISE INDICATED, ALL TESTING PERFORMED AT [facility] [address] [place] [address] STROBOROMA OPERATOR: JEANNIE HAYDEN M.D. CLIA NUMBER [id number] [place]. [id number] HIV 1/2 4TH GEN, RFLX [id number] 04:08:09* Test Item Value Reference Range Interpretation Comme nts HIV 1/2 4TH GEN, RFLX CONF ( test code = 3514) NON-REACTIVE NON-REACTIVE PSA, [id number] 04:07:46* Test Item Value Reference Range Interpretation Comme nts PSA, TOTAL (test code = 2606) 1.17 NG/ML See_Comment NOTE: Methodolog y is Nataly Pina Electrochemiluminescence Immunoassay traceable to WHO reference standard 96/760. [Automated message] The system which generated this result transmitted reference range: <=4.00. The reference range was not used to interpret this result as normal/abnormal. HIV 1/2 4TH GEN, RFLX [id number] 00:00:00* Test Item Value Reference Range Interpretation Comme nts HIV 1/2 4TH GEN, RFLX CONF ( test code = 3514) NON-REACTIVE Castillo SaleemPSA, [id number] 00:00:00* Test Item Value Reference Range Interpretation Comme nts PSA, TOTAL (test code = 2606) 1.17 NG/ML Castillo Foley AustinCT/NG, TMA, [id number] 00:00:00* Test Item Value Reference Range Interpretation Comme nts CHLAMYDIA, NAAT, URINE (test code = 60032) NEGATIVE GONORRHEA, NAAT, URINE (test code = 69958) NEGATIVE Castillo SaleemVITAMIN D, 25 [id number] 07:11:13* Test Item Value Reference Range Interpretation [...] . . . . NG/ML 30-100 LIPID [id number] 03:35:18* Test Item Value Reference Range Interpretation [...] SPECIMENS. FOR MOREINFORMATION, SEE CLIENT ANNOUNCEMENT AT [email or web address] RISK RATIO LDL/HDL (test code = 2238) 1.68 RATIO <3.55 COMPREHENSIVE METABOLIC [id number] 03:35:18* Test Item Value Reference Range Interpretation Comme nts GLUCOSE (test code = 2217) 100 MG/DL 70-99 H BUN (test code = 2207) 17 MG/DL 6-20 CREATININE (test code = 2214) 0.83 MG/DL 0.80-1.40 eGFR (2020 CKD-EPI) (test code = 99108) 113 ML/MIN/1.73 >60 CALC BUN/CREAT (test code [...] G/DL 6.1-8.3 ALBUMIN (test code = 2200) 4.7 G/DL 3.5-5.2 CALC GLOBULIN (test code = 2240) 2.6 G/DL 1.9-3.7 CALC A/G RATIO (test code = 2234) 1.8 RATIO 1.0-2.6 BILIRUBIN, TOTAL (test code = 2206) 0.3 MG/DL See_Comment [Automated me ssage] The system which generated this result transmitted reference range: <=1.2. The reference range was not used to interpret this result as normal/abnormal. ALKALINE PHOSPHATASE (test code = 2204) 129 U/L 40-117 H AST (test code = 2218) 19 U/L 9-50 ALT (test code = 2219) 39 U/L 5-50 HEMOGLOBIN [id number] 03:02:02* Test Item Value Reference Range Interpretation Comme nts HEMOGLOBIN A1c (test code = 43977) 6.0 % 4.2-5.6 H [employer] GUIDELINES FOR HGB A1C: [...] OR LABORATORY CONSULTATION. CBC W/AUTO DIFF WITH [id number] 02:37:49* Test Item Value Reference Range Interpretation [...] H ABS NUCLEATED RBCS (test code = 07791) 0.00 K/UL 0.00-0.11 [facility] has important pathology staff changes effective 07/03/2022. New pathology staff will provide uninterrupted, excellent patient care and clinical consultation. See URL: [email or web address]. UNLESS OTHERWISE INDICATED, ALL TESTING PERFORMED AT [facility] [address] [place] [address] STROBOROMA OPERATOR: JEANNIE HAYDEN M.D. CLIA NUMBER [id number] [facility] [place]. [id number] VITAMIN D, 25 [id number] 00:00:00* Test Item Value Reference Range Interpretation Comme [facility] VITAMIN D, 25 OH (test code = 4958) 17 NG/ML Castillo SaleemHEMOGLOBIN [id number] 00:00:00* Test Item Value Reference Range Interpretation Comme [facility] HEMOGLOBIN A1c (test code = 58905) 6.0 % Castillo SaleemLIPID [id number] 00:00:00* Test Item Value Reference Range Interpretation Comme nts CHOLESTEROL (test code = 2210) 222 MG/DL TRIGLYCERIDES (test code = 2232) 43 MG/DL HDL CHOLESTEROL (test code = 2220) 78 MG/DL CALC LDL CHOL (test code = 2237) 131 MG/DL RISK RATIO LDL/HDL (test cod e = 2238) 1.68 RATIO Castillo SaleemCOMPREHENSIVE METABOLIC [id number] 00:00:00* Test Item Value Reference Range Interpretation Comme nts GLUCOSE (test code = 2217) 100 MG/DL BUN (test code = 2208) 17 MG/DL CREATININE (test code = 2214) 0.83 MG/DL eGFR (2020 CKD-EPI) (test code = 11440) 113 ML/MIN/1.73 CALC BUN/CREAT (test code = [...] = 2219) 39 U/L Castillo SaleemCBC W/AUTO [id number] 00:00:00* Test Item Value Reference Range Interpretation [...] ABS NUCLEATED RBCS (test cod e = 72993) 0.00 K/UL Castillo Foley Devon. METABOLIC PANEL (26862)2022-02-03 06:27:45* Test Item Value Reference Range Interpretation Comme nts NA (test code = 2224643416) 142 mmol/L 135-145 K (test code = 8156417253) 4.2 mmol/L 3.5-5 CL (test code = 6511565848) 105 mmol/L 98-108 CO2 TOTAL (test code = 5597896159) 26 mmol/L 23-31 AGAP (test code = 3850354908) 2-16 BUN (test code = 3749294625) 16 mg/dL 7-23 GLUCOSE (test code = 1556484306) 97 mg/dL 70-110 CREATININE (test code = 9953526445) 0.94 mg/dL 0.6-1.25 TOTAL BILI (test code = 3983472046) 0.8 mg/dL 0.1-1.1 CALCIUM (test code = 4304618505) 10.0 mg/dL 8.6-10.6 T PROTEIN (test code = 4226227604) 8.0 g/dL 6.3-8.2 ALBUMIN (test code = 6604789041) 4.9 g/dL 3.5-5 ALK PHOS (test code = 6282765836) 151 U/L 34-122 H ALTv (test code = 1742-6) 84 U/L 5-50 H AST(SGOT) (test code = 2384450303) 42 U/L 13-40 H eGFR (test code = 6948936404) mL/min/1.73m2 TOM (test code = TOM) Association [...] imaging tests). Lab Interpretation (test code = 37939-7) [facility]* Test Item Value Reference Range Interpretation Comme nts LIPASE (test code = 9080004746) 84 U/L 0-220 Lab Interpretation (test cod e = 43298-0) Normal [facility] [id number] 06:04:42* Test Item Value Reference Range Interpretation Comme nts WBC (test code = 6690-2) See_Comment [Automated Coupz] The system which generated this result transmitted reference range: 4.20 - 10.70 10*3/?L. The reference range was not used to interpret this result as normal/abnormal. RBC (test code = 789-8) See_Comment [Automated messa ge] The system which [...] 34.8 g/dL 31.2-35 RDW-SD (test code = 07599-9) 38.8 fL 38.5-51.6 RDW-CV (test code = 788-0) 11.7 % 12.1-15.4 L PLT (test code = 777-3) See_Comment [Automated AudioBetaa ge] The system which generated this result transmitted reference range: 150 - 328 10*3/?L. The reference range was not used to interpret this result as normal/abnormal. MPV (test code = 71178-3) 11.8 fL 9.8-13 NRBC/100 WBC (test code = 0225965711) See_Comment [Automated Flocations ssage] The system which generated this result transmitted reference range: 0.0 - 10.0 /100 WBCs. The reference range was not used to interpret this result as normal/abnormal. NRBC x10^3 (test code = 4359985362) See_Comment [Automated AudioBetaa ge] The system which generated this result transmitted reference range: 10*3/?L. The reference range was not used to interpret this result as normal/abnormal. GRAN MAT (NEUT) % (test code = 770-8) 69.7 % IMM GRAN % (test code = 2560570395) 0.40 % LYMPH % (test code = 736-9) 20.9 % MONO % (test code = 5905-5) 7.8 % EOS % (test code = 713-8) 0.7 % BASO % (test code = 706-2) 0.5 % GRAN MAT x10^3(ANC) (test code = 6706561035) 6.91 10*3/uL 1.99-6.95 IMM GRAN x10^3 (test code = 7351138699) 0.04 10*3/uL 0-0.06 LYMPH x10^3 (test code = 731-0) 2.07 10*3/uL 1.09-3.23 MONO x10^3 (test code = 742-7) 0.77 10*3/uL 0.36-1.02 EOS x10^3 (test code = 711-2) 0.07 10*3/uL 0.06-0.53 BASO x10^3 (test code = 704-7) 0.05 10*3/uL 0.01-0.09 Lab Interpretation (test code = 59237-0) [facility] [id number] 06:41:19* Test Item Value Reference Range Interpretation Comme [facility] VITAMIN D, 25 OH (test code [...] . . . . NG/ML 30-100 HEMOGLOBIN [id number] 06:13:33* Test Item Value Reference Range Interpretation Comme [facility] HEMOGLOBIN A1c (test code = 31091) 5.7 % 4.2-5.6 H TSH, THIRD [id number] 06:00:05* Test Item Value Reference Range Interpretation Comme [facility] TSH, THIRD GENERATION (test code = 2821) 1.470 UIU/ML 0.400-4.100 [id number] 05:59:24* Test Item Value Reference Range Interpretation Comme [facility] TESTOSTERONE (test code = 2830) 536 NG/DL 300-1080 UNLESS OTHERWISE INDICATED, ALL TESTING PERFORMED [facility] [employer] [address] [place] [id number] STROBOROMA OPERATOR: ONIEL WOODSON M.D. CLIA NUMBER [id number] [facility] [place]. [id number] CBC W/AUTO DIFF WITH [id number] 05:32:39* Test Item Value Reference Range Interpretation [...] 0.00-0.10 ABS NUCLEATED RBCS (test code = 16435) 0.00 K/UL 0.00-0.11 COMPREHENSIVE METABOLIC [id number] 03:36:54* Test Item Value Reference Range Interpretation Comme nts GLUCOSE (test code = 2216) 88 MG/DL 70-99 BUN (test code = 2207) 10 MG/DL 6-20 CREATININE (test code = 2213) 0.88 MG/DL 0.80-1.40 eGFR (2020 CKD-EPI) (test code = ) 112 ML/MIN/1.73 >60 CALC BUN/CREAT (test code [...] G/DL 3.5-5.2 CALC GLOBULIN (test code = 0) 3.0 G/DL 1.9-3.7 CALC A/G RATIO (test [...] code = 9) 44 U/L 5-50 LIPID [id number] 03:36:54* Test Item Value Reference Range Interpretation Comme nts CHOLESTEROL (test code = 0) 226 MG/DL <200 H TRIGLYCERIDES (test code = 2) 105 MG/DL <150 HDL CHOLESTEROL (test code = 2219) 60 MG/DL >39 CALC LDL CHOL (test code = 2236) 144 MG/DL <100 H NOTE: CALCULATED LDL IS BASED ON MEHDI-ALLEN METHOD WHICHINCLUDES ADJUSTABLE TRIGLYCERIDE:VLDL CHOLESTEROL RATIO.THIS FACTOR VARIES BY MEASURED TRIGLYCERIDE AND NON-HDLCHOLESTEROL CONCENTRATIONS WITH INCREASED CALCULATED LDL SEENIN HIGHER TRIGLYCERIDE OR LOWER NON-HDL SPECIMENS. FOR MOREINFORMATION, SEE CLIENT ANNOUNCEMENT AT [email or web address] RISK RATIO LDL/HDL (test code = 2238) 2.40 RATIO <3.55 HEMOGLOBIN [id number] 00:00:00* Test Item Value Reference Range Interpretation Comme nts HEMOGLOBIN A1c (test code = 45061) 5.7 % Castillo Foley StievnCBC W/AUTO [id number] 00:00:00* Test Item Value Reference Range Interpretation [...] ABS NUCLEATED RBCS (test cod e = 17857) 0.00 K/UL Castillo Alaina StivenCOMPREHENSIVE METABOLIC [id number] 00:00:00* Test Item Value Reference Range Interpretation Comme nts GLUCOSE (test code = 2217) 88 MG/DL BUN (test code = 2208) 10 MG/DL CREATININE (test code = 2214) 0.88 MG/DL eGFR (2020 CKD-EPI) (test code = 76435) 112 ML/MIN/1.73 CALC BUN/CREAT (test code = [...] code = 2219) 44 U/L Castillo SaleemLIPID [id number] 00:00:00* Test Item Value Reference Range Interpretation Comme nts CHOLESTEROL (test code = 2210) 226 MG/DL TRIGLYCERIDES (test code = 2232) 105 MG/DL HDL CHOLESTEROL (test code = 2220) 60 MG/DL CALC LDL CHOL (test code = 2237) 144 MG/DL RISK RATIO LDL/HDL (test cod e = 2238) 2.40 RATIO Castillo [id number] 00:00:00* Test Item Value Reference Range Interpretation Comme [facility] TSH, THIRD GENERATION (test code = 2821) 1.470 UIU/ML Castillo SaleemVITAMIN D, 25 [id number] 00:00:00* Test Item Value Reference Range Interpretation Comme [facility] VITAMIN D, 25 OH (test code = 4958) 15 NG/ML Castillo [id number] 00:00:00* Test Item Value Reference Range Interpretation Comme [facility] TESTOSTERONE (test code = 2830) 536 NG/DL Castillo Saleem Notes Date/Time Note Provider Source 2024-06-11 22:51:02 [...] in no apparent distress, TON Puentes RN [facility] 2024-06-11 19:09:15 Pt states he has been seen here for the same complaint and discharged 2 days, pt states that he has lower abd pain, with nausea and diarrhea. TON Tripp RN [facility]"
[2025-02-21] MEDS ORDERED: NA CHLORIDE 0.9% 1,000 ML ONE ×2 (01:51→10:19)
[2025-02-21] MEDS ORDERED: ONDANSETRON 4 MG/2 ML VIAL ONE ×3 (02:12→09:56)
[2025-02-21] MEDS ORDERED: FENTANYL CITR 100 MCG/2 ML ONE ×4 (02:12→12:04)
[2025-02-21 02:25] LABS: Absolute Lymphocytes (CBC) 2.2 K/uL (0.7-4.9); Hematocrit 46.2 % (39.6-49.0); Hemoglobin 15.9 g/dL (13.6-17.9); MCH 31.8 pg (27.0-35.0); MCHC 34.4 g/dL (32.0-36.0); MCV 92.3 fL (80-100); MPV 10.1 fL (7.6-11.3); Nucleated RBC Absolute Count 0.0 (0-0); Nucleated Red Blood Cells % 0.1 % (0-0); RBC Red Blood Cell Count 5.00 M/uL (4.33-5.43); White Blood Count 8.50 thou/uL (4.3-10.9)
[2025-02-21] MEDS ORDERED: HYDROCODONE/APAP 7.5/325 MG TAB ONE (02:49)
[2025-02-21 04:20] LABS: ALT/SGPT 66.0 U/L (16-61); AST/SGOT 24.0 U/L (15-37); Albumin 3.7 g/dL (3.4-5.0); Albumin/Globulin Ratio 1.1 (1.1-1.8); Alkaline Phosphatase 133.0 U/L (45-117); Anion Gap 6.7 mEq/L (5.0-15.0); BUN Blood Urea Nitrogen 14.0 mg/dL (7-18); Globulin 3.4 g/dL (2.3-3.5); Glucose Level 77.0 mg/dL (74-106); Lipase 22.0 U/L (13-75); Potassium 3.7 mEq/L (3.5-5.1)
--- NOTE | 2025-02-21 06:41 | RAD REPORT ---
INDICATION: ABD PAIN COMPARISON: No existing relevant imaging studies are available TECHNIQUE: Enhanced CT of the abdomen and pelvis performed per protocol. Oral contrast was not administered. Mul tiplanar reconstructions were provided. Dose reduction techniques were utilized for this exam including automated exposure control, adjustmen ts to mA and/or kV according to patient's size, and the use of iterative reconstruction techniques. FINDINGS: LOWER CHEST: Lung bases are clear. LIVER: Diffuse hepatic steatosis. No focal lesions seen. SPLEEN: Unremarkable. PANCREAS: Unremarkable. ADRENALS: Unremarkable. KIDNEYS: Multiple nonobstructive intrarenal calculi bilaterally, largest measuring up to 3 mm within the upper pole of the right kidney. No hydronephrosis. GALLBLADDER: Unremarkable. VESSELS: Aortoiliac system normal in course and caliber. BOWEL: Colonic diverticulosis without evidence of diverticulitis. Bowel otherwise unremarkable. APPENDIX: Normal. MESENTERY: Subtle haziness within the mesentery with small scattered lymph nodes, a very nonspecific finding. FLUID: No free fluid or abnormal fluid collection. ADENOPATHY: No pathologic adenopathy. BLADDER: Unremarkable. PELVIS: Prostate is normal. BONES: No acute bony abnormality. Mild multilevel degenerative changes throughout the spine. SOFT TISSUES: Unremarkable. IMPRESSION: 1. No acute abdominopelvic findings. 2. Nonobstructive bilateral nephrolithiasis. 3. Hepatic steatosis. 4. Colonic diverticulosis without evidence of diverticulitis. Electronically signed by: Mariano Alaniz DO 02/21/2025 06:37 AM CDT NR Due to temporary technical issues with the [employer] reporting system, reports are being momo d by the in-house radiologist without review as a courtesy to ensure prompt reporting the interpreting radiologist is fully responsible for the content of the report. Transcribed Date/Time: 02/21/2025 6:41 AM
--- NOTE | 2025-02-21 07:01 | ER ---
Nurse's Notes [facility] Name: Yury Jolley Age: 44 yrs Sex: Male : 1980 Arrival Date: 02/21/2025 Time: 00:44 Bed 5 Private MD: Diagnosis: Symptomatic cholelithiasis, intractable right upper quadrant pain Presentation: 02/21 01:07 Chief complaint: Patient states: RIGHT UPPER QUADRANT ABDOMINAL PAIN. NAUSEA. WHITE ha1 STOOLS. BODY CHILLS. 01:07 Coronavirus screen: Client denies travel out of the [place] in the last 14 days. Ebola ha1 Screen: No symptoms or risks identified at this time. Initial Sepsis Screen: Does the patient meet any 2 criteria? No. Patient's initial sepsis screen is negative. Does the patient have a suspected source of infection? No. Patient's initial sepsis screen is negative. Risk Assessment: Do you want to hurt yourself or someone else? Patient reports no desire to harm self or others. Onset of symptoms was February 21, 2025. 01:07 Method Of Arrival: Ambulatory ha1 01:07 Acuity: ELIER 3 ha1 Triage Assessment: 01:07 General: Appears uncomfortable, Behavior is calm, cooperative. Pain: Complains of pain ha1 in right upper quadrant Pain currently is 9 out of 10 on a pain scale. Neuro: Level of Consciousness is awake, alert, obeys commands, Oriented to person, place, time, situation. Cardiovascular: Capillary refill < 3 seconds Patient's skin is warm and dry. Respiratory: Airway is patent Respiratory effort is even, unlabored, Respiratory pattern is regular, symmetrical. GI: Abdomen is round non-distended, Reports upper abdominal pain, nausea. Historical: - Allergies: 01:07 No Known Allergies; ha1 - PMHx: 01:07 diabetes mellitus; Diverticulitis; Hypertensive disorder; Leukemia; ha1 - Immunization history:: Adult Immunizations up to date. - Infectious Disease History:: Denies. - Social history:: Smoking status: Reported history of juuling and/or vaping. Screenin:36 [facility] ED Fall Risk Assessment (Adult) History of falling in the last 3 months, ss12 including since admission No falls in past 3 months (0 pts) Confusion or Disorientation No (0 pts) Intoxicated or Sedated No (0 pts) Impaired Gait No (0 pts) Mobility Assist Device Used No (0 pt) Altered Elimination No (0 pt) Score/Fall Risk Level 0 - 2 = Low Risk Oriented to surroundings, Maintained a safe environment, Educated pt \T\ family on fall prevention, incl call for assistance when getting out of bed, Assessed \T\ reinforced patient's understanding of fall precautions. Abuse screen: Denies threats or abuse. Denies injuries from another. Nutritional screening: No deficits noted. Tuberculosis screening: No symptoms or risk factors identified. Assessment: 01:10 Pain: Complains of pain in abdomen, right upper quad Pain currently is 8 out of 10 on a ss12 pain scale. Quality of pain is described as pressure, sharp. Neuro: Level of Consciousness is awake, alert, obeys commands, Oriented to person, place, time, situation. Cardiovascular: Capillary refill < 3 seconds Patient's skin is warm and dry. Respiratory: Airway is patent Respiratory effort is even, unlabored, Respiratory pattern is regular, symmetrical. GI: Bowel sounds present X 4 quads. Abd is soft X 4 quads. : No deficits noted. No signs and/or symptoms were reported regarding the genitourinary system. EENT: No deficits noted. No signs and/or symptoms were reported regarding the EENT system. Derm: Skin is intact, Skin is dry, Skin is pink, warm \T\ dry. normal. 01:10 Musculoskeletal: No deficits noted. No signs and/or symptoms reported regarding the 12 musculoskeletal system. 01:10 General: Appears in no apparent distress. comfortable, Behavior is calm, cooperative, ss12 quiet. 02:00 Reassessment: Patient appears in no apparent distress at this time. Patient and/or ss12 family updated on plan of care and expected duration. Pain level reassessed. Patient is alert, oriented x 3, equal unlabored respirations, skin warm/dry/pink. 03:43 General: Appears in no apparent distress. Behavior is calm, cooperative. Neuro: Level kd3 of Consciousness is awake, alert, obeys commands, Oriented to person, place, time, situation. Cardiovascular: Capillary refill < 3 seconds Patient's skin is warm and dry. Respiratory: Airway is patent Trachea midline Respiratory effort is even, unlabored, Respiratory pattern is regular, symmetrical. GI: Bowel sounds present X 4 quads. Abd is soft X 4 quads. 04:07 Reassessment: Patient appears in no apparent distress at this time. Patient and/or ss12 family updated on plan of care and expected duration. Pain level reassessed. Patient is alert, oriented x 3, equal unlabored respirations, skin warm/dry/pink. 05:14 Reassessment: Patient and/or family updated on plan of care and expected duration. Pain kd3 level reassessed. Patient is alert, oriented x 3, equal unlabored respirations, skin warm/dry/pink. Vital Signs: 01:07 BP 143 / 107; Pulse 85; Resp 17 S; Temp 98.3; Pulse Ox 100% on R/A; Weight 111.13 kg; ha1 Height 5 ft. 10 in. ; Pain 9/10; 02:00 BP 135 / 94; Pulse 79; Resp 18; Pulse Ox 97% on R/A; ss12 03:42 BP 119 / 83; Pulse 72; Resp 19; Pulse Ox 98% on R/A; kd3 04:02 BP 142 / 96; Pulse 60; Resp 18 S; Pulse Ox 100% on R/A; ss12 05:17 BP 117 / 76; Pulse 67; Resp 16; Pulse Ox 99% on R/A; kd3 01:07 Body Mass Index 35.15 (111.13 kg, 177.8 cm) ha1 01:07 Pain Scale: Adult ha1 ED Course: 00:56 Patient arrived in ED. gm2 01:10 Donna Erickson PA-C is PHCP. sb4 01:10 Rashawn Tidwell MD is Attending Physician. sb4 01:43 Triage completed. ha1 01:47 Maryse Man, RN is Primary Nurse. kd3 02:37 Arm band placed on right wrist. ss12 02:37 Patient has correct armband on for positive identification. ss12 02:37 Provided Education on: plan of care. ss12 02:37 No provider procedures requiring assistance completed. ss12 05:59 CT Abd/Pelvis - IV Contrast Only In Process Unspecified. EDMS 06:59 Kirill Lara is Hospitalizing Provider. sp4 07:13 Abdomen Limited US In Process Unspecified. EDMS 08:19 Cholangiogram In Process Unspecified. EDMS Administered Medications: 02:00 Drug: NS 0.9% IV 1000 ml IV at 1 bolus Per protocol; to be given as a bolus over 60 ss12 minutes Route: IV; Rate: 1 bolus; Site: right wrist; 03:00 Follow up: IV Status: Completed infusion; IV Intake: 1000ml ss12 02:00 Drug: Ondansetron IVP 4 mg IVP once; over 2 minutes Route: IVP; Site: right wrist; ss12 02:30 Follow up: Response: No adverse reaction; Nausea is decreased ss12 02:00 Drug: fentaNYL (PF) IVP 50 mcg IVP once Route: IVP; Site: right wrist; ss12 02:30 Follow up: Response: No adverse reaction; Pain is decreased ss12 03:21 Drug: Hydrocodone-Acetaminophen PO (7.5 mg-325 mg) 1 tabs PO once Route: PO; kd3 04:00 Follow up: Response: No change in condition; Pain is decreased ss12 06:05 Not Given (medication unavailable ): morphineor iv 4 mg IVP once over 4 mins kd3 06:05 Drug: Ondansetron IVP 4 mg IVP once; over 2 minutes Route: IVP; Site: right forearm; kd3 07:02 Follow up: Response: No adverse reaction; Pain is decreased ss12 06:05 Drug: Droperidol IVP 2.5 mg IVP once Route: IVP; Site: right forearm; kd3 06:30 Follow up: Response: No adverse reaction; Pain is decreased ss12 06:05 Drug: fentaNYL (PF) IVP 100 mcg IVP once Route: IVP; Site: right forearm; kd3 06:30 Follow up: Response: No adverse reaction; Pain is decreased ss12 08:26 Drug: Piperacillin-Tazobactam IVPB 3.375 grams IVPB once over 60 mins; (mix in NS 100 iw mL) Route: IVPB; Infused Over: 60 mins; Site: right wrist; Medication: 02:37 VIS not applicable for this client. ss12 Intake: 03:00 IV: 1000ml; Total: 1000ml. ss12 Outcome: 07:00 Decision to Hospitalize by Provider. sp4 09:52 Patient left the ED. iw Signatures: Dispatcher [employer] EDMS Sherry Thompson RN RN Maryse Man RN RN 3 Martha Velazco RN RN ha1 Donna Erickson, PADiegoC PA-C sb4 Rashawn Tidwell MD MD sp4 Karla Mcfarland gm2 Gagan Farah, RN RN ss12
--- NOTE | 2025-02-21 07:01 | EDPHYS ---
Physician Documentation [facility] Name: Yury Jolley Age: 44 yrs Sex: Male : 1980 Arrival Date: 02/21/2025 Time: 00:44 Bed 5 Private MD: ED Physician Rashawn Tidwell HPI: 02/21 03:45 This 44 yrs old Male presents to ER via Ambulatory with complaints of sb4 Abdominal Pain. 03:45 Patient reports intermittent right upper quadrant pain for few months now, but that was sb4 much worse today and is worsened throughout the day. He states last month he was told he had gallstones and would likely need surgery at some point to remove it. He followed up with GI and was told he needed a repeat ultrasound, has not yet had that obtained. Additionally, he states that he has had intermittent "white stool "over the past few days. Historical: - Allergies: 01:07 No Known Allergies; ha1 - PMHx: 01:07 diabetes mellitus; Diverticulitis; Hypertensive disorder; Leukemia; ha1 - Immunization history:: Adult Immunizations up to date. - Infectious Disease History:: Denies. - Social history:: Smoking status: Reported history of juuling and/or vaping. ROS: 03:45 Constitutional: Negative for fever, chills, and weight loss, sb4 03:45 Abdomen/GI: Positive for abdominal pain, nausea, per HPI, 03:45 All other systems are negative, Exam: 03:45 Constitutional: This is a well developed, well nourished patient who is awake, alert, sb4 and in no acute distress. Head/Face: Normocephalic, atraumatic. Eyes: Extra-ocular motions intact. Periorbital areas with no swelling, redness, or edema. ENT: Mucous membranes moist. Cardiovascular: Regular rate and rhythm with a normal S1 and S2. Respiratory: No increased work of breathing, no retractions or nasal flaring. Skin: Warm, dry with normal turgor. Normal color with no rashes, no lesions, and no evidence of cellulitis. 03:45 Abdomen/GI: Inspection: abdomen appears normal, Palpation: soft, mild abdominal tenderness, in the right upper quadrant, Vital Signs: 01:07 BP 143 / 107; Pulse 85; Resp 17 S; Temp 98.3; Pulse Ox 100% on R/A; Weight 111.13 kg; ha1 Height 5 ft. 10 in. ; Pain 9/10; 02:00 BP 135 / 94; Pulse 79; Resp 18; Pulse Ox 97% on R/A; ss12 03:42 BP 119 / 83; Pulse 72; Resp 19; Pulse Ox 98% on R/A; kd3 04:02 BP 142 / 96; Pulse 60; Resp 18 S; Pulse Ox 100% on R/A; ss12 05:17 BP 117 / 76; Pulse 67; Resp 16; Pulse Ox 99% on R/A; kd3 01:07 Body Mass Index 35.15 (111.13 kg, 177.8 cm) ha1 01:07 Pain Scale: Adult ha1 MDM: 01:12 Medical Screening Exam initiated sb4 03:46 Differential diagnosis: cholecystitis, Cholelithiasis, gastritis, gastroesophageal sb4 reflux disease, Hepatitis, non-specific abd pain, pancreatitis, Peptic Ulcer Disease. 06:58 Data reviewed: vital signs, nurses notes, lab test result(s), radiologic studies, CT sp4 scan. Consideration of Admission/Observation Patient was admitted/placed on observation. Escalation of care including admission/observation considered. Management of patient was discussed with the following: Hospitalist: Marco TONEY. Dipper Machine Operator: Arturo TONEY . ED course: General surgeon requested admission for MRCP. Will see in consultation today. 02/21 01:46 Order name: CBC with Diff; Complete Time: 02:30 sb4 02/21 01:46 Order name: CMP; Complete Time: 04:34 sb4 02/21 01:46 Order name: Lipase; Complete Time: 04:34 sb4 02/21 07:23 Order name: Basic Metabolic Panel EDMS 02/21 07:23 Order name: Basic Metabolic Panel EDMS 02/21 07:23 Order name: Basic Metabolic Panel EDMS 02/21 07:23 Order name: Basic Metabolic Panel EDMS 02/21 07:23 Order name: CBC with Automated Diff EDMS 02/21 07:23 Order name: CBC with Automated Diff; Complete Time: 08:03 EDMS 02/21 07:23 Order name: CBC with Automated Diff EDMS 02/21 07:23 Order name: CBC with Automated Diff EDMS 02/21 01:51 Order name: Abdomen Limited US; Complete Time: 08:03 sb4 02/21 05:36 Order name: CT Abd/Pelvis - IV Contrast Only; Complete Time: 08:03 sp4 02/21 07:01 Order name: Cholangiogram; Complete Time: 08:03 EDMS 02/21 07:23 Order name: CONS Physician Consult EDFL 02/21 01:46 Order name: IV Saline Lock; Complete Time: 03:21 sb4 02/21 01:46 Order name: Labs collected and sent; Complete Time: 03:21 sb4 02/21 02:34 Order name: Labs - recollect needed: green top, hemolyzed; Complete Time: 03:42 sb4 Administered Medications: 02:00 Drug: NS 0.9% IV 1000 ml IV at 1 bolus Per protocol; to be given as a bolus over 60 ss12 minutes Route: IV; Rate: 1 bolus; Site: right wrist; 03:00 Follow up: IV Status: Completed infusion; IV Intake: 1000ml ss12 02:00 Drug: Ondansetron IVP 4 mg IVP once; over 2 minutes Route: IVP; Site: right wrist; ss12 02:30 Follow up: Response: No adverse reaction; Nausea is decreased ss12 02:00 Drug: fentaNYL (PF) IVP 50 mcg IVP once Route: IVP; Site: right wrist; ss12 02:30 Follow up: Response: No adverse reaction; Pain is decreased ss12 03:21 Drug: Hydrocodone-Acetaminophen PO (7.5 mg-325 mg) 1 tabs PO once Route: PO; kd3 04:00 Follow up: Response: No change in condition; Pain is decreased ss12 06:05 Not Given (medication unavailable ): morphineor iv 4 mg IVP once over 4 mins kd3 06:05 Drug: Ondansetron IVP 4 mg IVP once; over 2 minutes Route: IVP; Site: right forearm; kd3 07:02 Follow up: Response: No adverse reaction; Pain is decreased ss12 06:05 Drug: Droperidol IVP 2.5 mg IVP once Route: IVP; Site: right forearm; kd3 06:30 Follow up: Response: No adverse reaction; Pain is decreased ss12 06:05 Drug: fentaNYL (PF) IVP 100 mcg IVP once Route: IVP; Site: right forearm; kd3 06:30 Follow up: Response: No adverse reaction; Pain is decreased ss12 08:26 Drug: Piperacillin-Tazobactam IVPB 3.375 grams IVPB once over 60 mins; (mix in NS 100 iw mL) Route: IVPB; Infused Over: 60 mins; Site: right wrist; Disposition: 05:05 Co-signature as Attending Physician, Rashawn Tidwell MD I agree with the assessment sp4 and plan of care. I reviewed the patient's care provided by Advanced Practice Provider \\T\\ agree w/ the diagnosis \\T\\ care plan. I personally saw the pt \\T\\ performed a substantive portion of the visit, incldng all aspects of the (History/Exam/Medical Decision Making). 02/22 08:03 Chart complete. sb4 Disposition Summary: 02/21/25 07:00 Hospitalization Ordered Notes: Hospitalization Status: Observation sp4 Provider: Kirill Lara spNhung Condition: Stable sp4 Problem: new sp4 Symptoms: have improved sp4 Bed/Room Type: Standard sp4 Location: [facility] ER HOLD(02/21/25 08:31) kb3 Room Assignment: ERHOLD-(02/21/25 08:31) kb3 Diagnosis - Symptomatic cholelithiasis, intractable right upper quadrant pain sp4 Forms: - Medication Reconciliation Form sp4 - SBAR form sp4 - Leadership Thank You Letter sp4 Signatures: Dispatcher [employer] Sherry Bronson, RN RN iw Chay Clayton, STAFF INTERNIST OFFICE BASED ONLY-C STAFF INTERNIST OFFICE BASED ONLY-Maryse Mathew RN RN kd3 Martha Velazco RN RN [email or web address] Ness Haynes RN RN [id number] Donna Erickson PA-C PA-Antonio sb4 Rashawn Tidwell MD MD sp4 Gagan Farah RN RN ss12 Corrections: (The following items were deleted from the chart) 02/21 08:31 07:00 Telemetry/MedSurg (observation) sp4 kb3 08: 07:00 sp4 kb3
[2025-02-21] MEDS ORDERED: HYDROMORPHONE HCL 0.5 MG/0.5 ML INJ IV PRN (07:19)
[2025-02-21] MEDS ORDERED: ONDANSETRON 4 MG/2 ML VIAL IV PRN (07:19)
--- NOTE | 2025-02-21 07:27 | P.HP ---
Certification for Inpatient Patient admitted to: Observation With expected LOS: <2 Midnights Patient will require the following post-hospital care: None Practitioner: I am a practitioner with admitting privileges, knowledge of patient current condition, hospital course, and medical plan of care. Services: Services provided to patient in accordance with Admission requirements found in Title 42 Section 412.3 of the Code of Federal Regulations Patient History Date of Service: 02/21/25 History of Present Illness: 44-year-old male with history of loo-gphruiv-qodjqawmx diabetes, hypertension, CLL presents the emergency department chief complaint 3 days of epigastric abdominal pain with nausea. He reports in June he was told that he had gallstones and may need surgery at some point in the future. Patient was evaluated here in the emergency department his labs were significant for mildly elevated ALT of 66 alk phos [address] of the abdomen and pelvis was performed overnight which showed hepatic steatosis, nonobstructive bilateral nephrolithiasis, colonic diverticulosis without diverticulitis. Abdominal ultrasound and MRCP ordered and pending, patient will be admitted to the hospital services for evaluation for general surgery for suspected symptomatic cholelithiasis. Allergies No Known Allergies Allergy (Verified 06/10/24 04:49) Home Medications: Hydrocodone 10/APAP 325 [Treadwell 10/325] 1 tab PO Q8H PRN #20 tab 06/10/24 Levofloxacin [Levaquin] 500 mg PO DAILY #7 tab 06/10/24 metroNIDAZOLE [Flagyl] 500 mg PO Q8H #20 06/10/24 metroNIDAZOLE [Metronidazole] 500 mg PO Q8H #21 tab 06/10/24 - Past Medical/Surgical History -: Pas-yfrjrfp-yfcnkhtpb diabetes -: CLL -: Hypertension -: None Psychosocial/ Personal History: Lives at home with family - Social History Alcohol use: No CD- Drugs: No Caffeine use: Yes Place of Residence: Home Review of Systems 10-point ROS is otherwise unremarkable Gastrointestinal: Nausea, Abdominal Pain Physical Examination - Physical Exam General: Alert, In no apparent distress, Oriented x3 HEENT: Atraumatic, PERRLA, EOMI Neck: Supple, 2+ carotid pulse no bruit, No LAD Respiratory: Clear to auscultation bilaterally, Normal air movement Cardiovascular: Regular rate/rhythm, Normal S1 S2 Gastrointestinal: Normal bowel sounds, Tenderness (Mild epigastric tenderness) Musculoskeletal: No tenderness Integumentary: No rashes Neurological: Normal speech, Normal strength at 5/5 x4 extr, Normal affect - Studies Laboratory Data (last 24 hrs) 02/21/25 02/21/25 03:34 02:05 WBC 8.50 Hgb 15.9 Hct 46.2 Plt Count 225 Sodium 139 Potassium 3.7 BUN 14 Creatinine 0.82 Glucose 77 Total Bilirubin 0.6 AST 24 ALT 66 H Alkaline Phosphatase 133 H Lipase 22 Assessment and Plan - Plan Assessment: Symptomatic cholelithiasis Diabetes mellitus type 0pal-emvuftt-huxslbjfs Hypertension CLL Plan: Symptomatic cholelithiasis Abdominal ultrasound and MRCP ordered and pending General Surgery consultation N.p.o., empiric antibiotics, IV fluids As needed pain medications and antiemetics Diabetes mellitus type 7bdt-ucpwyza-ncjgjgzqn ACHS Accu-Chek, sliding scale insulin Hypertension CLL Continue home medications when verified and tolerating p.o. DVT PPX: SCD Code status: Full code Discharge Plan: Home Plan to discharge in: 24 Hours - Advance Directives Does patient have a Living Will: No Does patient have a Durable POA for Healthcare: No - Code Status/Comfort Care Code Status Assessed: Yes (Full code) Critical Care: No Time Spent Managing Pts Care (In Minutes): 65
[2025-02-21] MEDS ORDERED: NA CHLORIDE 0.9% 100 ML ONE (07:40)
[2025-02-21] MEDS ORDERED: PIPERACIL/TAZO 3.375 GM VIAL IV ONE (07:40)
--- NOTE | 2025-02-21 07:43 | RAD REPORT ---
EXAM: Right upper quadrant ultrasound. CLINICAL HISTORY: ABD PAIN COMPARISON: None. FINDINGS: Gallbladder: Large gallstone in the region of the gallbladder neck. Bile ducts: No intrahepatic or extrahepatic biliary dilatation. Common bile duct measures 4 mm. Limited imaging of the liver shows no concerning finding. IMPRESSION: Cholelithiasis.
--- NOTE | 2025-02-21 09:16 | RAD REPORT ---
EXAMINATION: MR CHOLANGIOGRAM CLINICAL INDICATION: Male, 44 years old. R/O biliary obstruction TECHNIQUE: Multiplanar, multisequence MR imaging of the abdomen without intravenous contrast, and wit h specific attention to the biliary system. Unless otherwise specified, incidental findings do not require dedicated imaging follow-up. 3D MIP reconstruction performed. COMPARISON: 02/21/2025 FINDINGS: GALLBLADDER: Stone is present in the gallbladder near the neck. BILE DUCTS: No biliary ductal dilatation. LIVER: Normal in size, contour, and signal without evidence of fatty infiltration or iron deposition. No focal lesion. PANCREAS: Normal signal. No mass, ductal dilation, or gallo-pancreatic fluid. LYMPH NODES: No lymphadenopathy. ADDITIONAL FINDINGS: None. IMPRESSION: Cholelithiasis. No pathologic biliary tree dilatation.
--- NOTE | 2025-02-21 09:20 | P.OP ---
Date of Service: 02/21/25 Preop diagnosis: Right neck mass x 2 Postop diagnosis: Same Procedure performed: Wide excision right neck mass x 2, 3 x 1 cm with layered closure on each mass Surgeon: Orion Morris MD Drink Mixer: None Estimated blood loss: Minimal Specimen: Right neck mass x 2 Findings: Likely epidermal inclusion cysts Anesthesia: General Complications: None Drains: None Fluids and blood products: None applicable Disposition: Recovery room Operative note: Patient brought to the OR and placed in supine position. General anesthesia began. Patient positioned in the left lateral position. Patient prepped and draped in the usual sterile fashion. Marcaine 0.5% plain locally. 15 blade used to make a 3 x 1 cm over each mass. Subcutaneous tissue divided and bleeding controlled cautery. Both masses excised and sent to pathology after being appropriately labeled. Wound irrigated and bleeding controlled with cautery. Flaps created. 3-0 chromic used to reapproximate subcutaneous tissue and close skin. Sterile dressing applied. Patient awakened and taken to recovery room in good general condition. CC:
[2025-02-21] MEDS ORDERED: HYDROCODONE/APAP 7.5/325 MG TAB PO PRN (09:22)
[2025-02-21] MEDS ORDERED: MIDAZOLAM HCL 2 MG/2 ML INJ ONE (09:54)
[2025-02-21] MEDS ORDERED: LIDOCAINE 1% MPF 5 ML VIAL ONE (09:55)
[2025-02-21] MEDS ORDERED: ROCURONIUM 50 MG/5 ML VIAL IV ONE ×2 (09:56→11:31)
[2025-02-21] MEDS ORDERED: SUCCINYLCHOLINE 200 MG/10 ML 200 MG/10 ML SYR IV ONE (09:57)
[2025-02-21] MEDS ORDERED: NEOSTIGMINE 1 MG/ML -10 ML VIAL ONE (09:58)
[2025-02-21] MEDS ORDERED: GLYCOPYRROLATE 0.2 MG/ML SYR ONE ×3 (09:58→11:42)
[2025-02-21] MEDS ORDERED: KETOROLAC 30 MG/ML INJ ONE (09:58)
[2025-02-21] MEDS ORDERED: DEXMEDETOMIDINE HCL 200 MCG/2 ML VIAL ONE (10:01)
--- NOTE | 2025-02-21 10:23 | P.CNS ---
Date of Consult: 02/21/25 Reason for consult: Abdominal pain History of present illness: Patient is a 44-year-old gentleman who presents to the emergency room with 1 day history of postprandial right upper quadrant abdominal pain radiating to the back and right shoulder. Pain is associated with nausea but no vomiting. Patient denies bloating, belching or heartburn. Pain is postprandial. Patient denies any diarrhea, constipation or blood per rectum. Patient denies any dysuria or hematuria. Patient denies any sore throat, runny nose, cough, dizziness, chest pain, fever or chills. Review of systems: Otherwise unremarkable Past medical history: Hypertension, diabetes and chronic lymphocytic leukemia being managed conservatively Past surgical history: Patient denies. Allergies: None Social history: Patient vapes, does not drink alcohol Family history: Family history seen for diabetes and hypertension Vital signs: Stable, afebrile Physical exam: Awake, alert and oriented x 3 Head and neck exam: No evidence of icterus, no neck masses, no JVD, throat clear neck supple Chest: Clear Heart: S1-S2 Abdomen: Soft, nondistended, positive bowel sounds and right upper quadrant tenderness with deep palpation and inspiratory arrest Extremity: Neurovascular intact Neuro: Nonfocal Diagnostic data: White count is normal, LFTs were elevated, CT of the abdomen pelvis had no acute findings, ultrasound had a large stone at the neck of the gallbladder and the MRCP did not show any evidence of stone in the common bile duct. Assessment: Acute cholecystitis and cholelithiasis Plan/recommendation: Admit, n.p.o., IV fluids, IV antibiotics and to the OR for laparoscopic cholecystectomy possible open. Patient understands risk, benefits and alternatives and agrees to procedure. CC:
[2025-02-21] MEDS ORDERED: EPHEDRINE SULF 50 MG/ML VIAL ONE (11:01)
[2025-02-21] MEDS ORDERED: Phenylephrine HCl 10 MG/ML 1 ML VIAL ONE (11:01)
[2025-02-21] MEDS ORDERED: NS 0.9% VIAL 10 ML ONE (11:01)
[2025-02-21] MEDS: BUPIVACAINE 0.5% PF 10 ML VIAL ONE (11:04)
[2025-02-21] MEDS: NA CHLORIDE 0.9% 1,000 ML ONE (11:18)
--- NOTE | 2025-02-21 11:50 | P.OP ---
Date of Service: 02/21/25 Preop diagnosis: Acute cholecystitis and cholelithiasis Postop diagnosis: Same Procedure performed: Laparoscopic cholecystectomy Surgeon: Orion Morris MD Art Education Professor: None Estimated blood loss: Minimal Specimen: Gallbladder Findings: As above Anesthesia: General Complications: None Drains: None Fluids and blood products: None applicable Disposition: Recovery room Operative note: Patient brought to the OR and placed in supine position. General anesthesia began. Patient prepped and draped in the usual sterile fashion. Marcaine 0.5% infiltrated locally for postop pain control. 15 blade used to make a 1 cm supraumbilical midline incision. Subcutaneous tissue divided and bleeding controlled with cautery. Fascia identified and divided. #1 Vicryl stay suture placed. Peritoneal cavity entered with sharp and blunt dissection. 12 mm trocar placed into the peritoneal cavity under direct vision. Pneumoperitoneum established. Then 3 5 mm trocars placed under direct vision. 1 trocar placed in the epigastric region just to the right of midline and the other 2 placed in the right subcostal region. Laparoscopy revealed a distended gallbladder with evidence of acute inflammation. The gallbladder was aspirated of bile. Fundus was retracted superiorly. Infundibulum was identified and retracted inferolaterally. Cystic duct and cystic artery were clearly identified with blunt dissection. Clips placed in both structure divided. Cautery used to remove the gallbladder from the liver bed. Bleeding on the li danae bed controlled cautery. Gallbladder retrieved through the umbilicus via Endo Catch bag. Right upper quadrant irrigated and effluent clear. No evidence of bleeding or bile leakage appreciated. Subsequently all trocars removed under direct vision. Stay sutures tied to each other to reapproximate the fascial defect. Subcutaneous wound irrigated and bleeding controlled with cautery. 3-0 chromic used to approximate subcutaneous tissue and close skin. Sterile dressing applied. Patient awakened and taken to recovery room in good general condition. CC:
[2025-02-21] MEDS ORDERED: HYDROMORPHONE HCL 1 MG/ML INJ IV PRN (11:54)
[2025-02-21] MEDS ORDERED: Mastisol Adhesive Liq ONE (11:55)
[2025-02-21] MEDS: HYDROMORPHONE HCL 1 MG/ML INJ ONE (12:28)
[2025-02-21] MEDS: HYDROCODONE/APAP 7.5/325 MG TAB PO PRN (13:44)
[2025-02-21] MEDS: PIPER TAZO 3.375 GM in NA CHLORIDE 0.9% 100 ML IV SCH (15:02)
[2025-02-21 15:17] VITALS: BMI 35.1
[2025-02-21] MEDS ORDERED: FLU (Fluarix) 25-26 (6MOS UP)/PF 45 MCG/0.5 ML Syringe IM ONE (16:15)
[2025-02-21] MEDS: INSULIN REGULAR (HUMAN) 100 UNIT/ML SQ SCH (16:30)
[2025-02-22] MEDS: PIPER TAZO 3.375 GM in NA CHLORIDE 0.9% 100 ML IV SCH (01:00)
[2025-02-22] MEDS: NA CHLORIDE 0.9% 1,000 ML IV SCH (03:46)
[2025-02-22 05:49] LABS: Absolute Lymphocytes (CBC) 1.0 K/uL (0.7-4.9); Hematocrit 44.1 % (39.6-49.0); Hemoglobin 14.6 g/dL (13.6-17.9); MCH 30.7 pg (27.0-35.0); MCHC 33.0 g/dL (32.0-36.0); MCV 92.8 fL (80-100); MPV 10.3 fL (7.6-11.3); Nucleated RBC Absolute Count 0.0 (0-0); Nucleated Red Blood Cells % 0.0 % (0-0); RBC Red Blood Cell Count 4.75 M/uL (4.33-5.43); White Blood Count 13.40 thou/uL (4.3-10.9)
[2025-02-22 07:44] LABS: Blood Morphology Comment NOT SEEN (NOT SEEN); Differential Total Cells Count 100; Segmented Neutrophils 88 % (40-80)
[2025-02-22 09:13] VITALS: BP 124/70; TEMP 98
[2025-02-22 09:42] VITALS: O2SAT 98
--- NOTE | 2025-02-22 10:05 | P.DS ---
Admission Date: 02/21/25 Discharge Date: 02/22/25 Disposition: ROUTINE DISCHARGE Discharge Condition: GOOD Brief History of Present Illness: 44-year-old male with history of phw-qjmnuky-jigtaomfd diabetes, hypertension, CLL presents the emergency department chief complaint 3 days of epigastric abdominal pain with nausea. He reports in June he was told that he had gallstones and may need surgery at some point in the future. Patient was evaluated here in the emergency department his labs were significant for mildly elevated ALT of 66 alk phos [address] of the abdomen and pelvis was performed overnight which showed hepatic steatosis, nonobstructive bilateral nephrolithiasis, colonic diverticulosis without diverticulitis. Abdominal ultrasound and MRCP ordered and pending, patient will be admitted to the hospital services for evaluation for general surgery for suspected symptomatic cholelithiasis. Hospital Course: Assessment: Acute cholecystitis/symptomatic cholelithiasis Diabetes mellitus type 6lin-quoseef-nqrcjtvfm Hypertension CLL Patient was admitted to the hospital for symptomatic cholelithiasis. He underwent laparoscopic cholecystectomy and was found to have acute cholecystitis/cholelithiasis. He has done well postoperatively and is stable for discharge outpatient follow-up with general surgery in 1 week. Continue home medications as previously prescribed Prescription for antibiotic/pain medicine will be sent to the pharmacy [facility] Vital Signs/Physical Exam: Temp Pulse Resp BP Pulse Ox 98 F 68 17 124/70 98 02/22/25 08:00 02/22/25 08:00 02/22/25 08:00 02/22/25 08:00 02/22/25 08:00 General: Alert, In no apparent distress, Oriented x3 HEENT: Atraumatic, PERRLA Neck: Supple, JVD not distended Respiratory: Clear to auscultation bilaterally, Normal air movement Cardiovascular: Regular rate/rhythm, Normal S1 S2 Gastrointestinal: Normal bowel sounds, No tenderness Musculoskeletal: No tenderness Integumentary: No rashes Neurological: Normal speech, Normal affect Laboratory Data at Discharge: WBC 13.40 thou/uL (4.3-10.9) H 02/22/25 05:19 Hgb 14.6 g/dL (13.6-17.9) D 02/22/25 05:19 Hct 44.1 % (39.6-49.0) 02/22/25 05:19 Plt Count 228 thou/uL (152-406) 02/22/25 05:19 Sodium 139 mEq/L (136-145) 02/21/25 03:34 Potassium 3.7 mEq/L (3.5-5.1) 02/21/25 03:34 BUN 14 mg/dL (7-18) 02/21/25 03:34 Creatinine 0.82 mg/dL (0.70-1.30) 02/21/25 03:34 Glucose 77 mg/dL (74-106) 02/21/25 03:34 Total Bilirubin 0.6 mg/dL (0.2-1.0) 02/21/25 03:34 AST 24 U/L (15-37) 02/21/25 03:34 ALT 66 U/L (16-61) H 02/21/25 03:34 Alkaline Phosphatase 133 U/L (45-117) H 02/21/25 03:34 Lipase 22 U/L (13-75) 02/21/25 03:34 Home Medications: Dextroamphetamine/Amphetamine [Dextroamp-Amphetamin 15 mg Tab] 1 tab PO DAILY 02/21/25 Glimepiride 1 tab PO DAILY 02/21/25 Lisinopril [Zestril] 1 tab PO DAILY 02/21/25 Amox/Clavulanate [Augmentin 875-125 Tab] 875 mg PO BID 7 Days #14 tab 02/22/25 New Medications: Amox/Clavulanate [Augmentin 875-125 Tab] 875 mg PO BID 7 Days #14 tab Physician Discharge Instructions: Patient was admitted to the hospital for symptomatic cholelithiasis. He underwent laparoscopic cholecystectomy and was found to have acute cholecystitis/cholelithiasis. He has done well postoperatively and is stable fo r discharge outpatient follow-up with general surgery in 1 week. Continue home medications as previously prescribed Prescription for antibiotic/pain medicine will be sent to the pharmacy [facility] Diet: ADA Activity: No lifting more than 10 lbs Followup: MARISOL LARSON [Primary Care Provider] - Time spent managing pt's care (in minutes): 35
--- NOTE | 2025-02-22 14:15 | PN ---
Date of Progress Note: 02/22/2025 Subjective: The patient is awake, alert, tolerating diet, ambulating. Pain controlled on p.o. pain medication, afebrile. Therefore, the patient will be cleared for discharge. Objective: Vital Signs: Stable. Afebrile. Abdomen: Benign. Dressing is clean, dry, and intact. Laboratory Data: Reviewed. His white count did go up a little bit. However, the patient will be di scharged home on antibiotics. Assessment: Status post laparoscopic cholecystectomy. Recommendation: Detailed discharge instructions given to the patient. The patient is to follow up w [facility] in 1 week. Antibiotics and pain medicine per the hospitalist team. /MODL Voice ID: [id number] Report ID: [id number]
== END 2025-02-22 11:09 | disposition home or self-care (01) ==
LOC: ER 00:44 → 4TH 07:18
PROVIDERS: ADMIT Internal Medicine; ATTEND Hospitalist
PROC: 0FT44ZZ Resection of Gallbladder, Percutaneous Endoscopic Approach (ICD-10-PCS; principal; 2025-02-21 10:00)
DX: K80.10 Calculus of gallbladder with chronic cholecystitis without obstruction (principal); E11.9 Type 2 diabetes mellitus without complications; I10 Essential (primary) hypertension; C91.10 Chronic lymphocytic leukemia of B-cell type not having achieved remission; R11.0 Nausea; Z23 Encounter for immunization
CPT/HCPCS: 47562; 85025 ×2; 36415 ×2; 82947 ×5; 88304; 83690; 80053; 74177; 74181; 76705; 94010 ×2; 99284; Q9967; A4216; J2704 ×2; J2710; J2003; J2371; J2543 ×4; J2250; J3010 ×4; J1100; J1171; J2405 ×3; J2800; J1790; J0330; G0378 ×4; J7030 ×4; J1885